=== PATIENT | male | born 1960 | race Two or more races ===

== ENCOUNTER 2018-05-14 19:26 | Inpatient (IN) | payer MEDICARE, OTHER ==
[~2018-05-14] VITALS: Ht 162.6 cm; Wt 181.4 kg
--- NOTE | 2018-05-14 19:45 | NUR ---
PT BIB PA C/O UPPER ABD PAIN WITH N/V TODAY, AND CHRONIC BUT WORSE THAN USUAL L LEEG PAIN. PT REPORTS DIABETIC NEUROPATHY. RESP EVEN UNLABORED. SKIN WARM DRY. LEGS ARE REDDENED AND ABESE BUT NO PITTING EDEMA. SATURATING LOW-MID 90'S ON ROOM AIR IN NO ACUTE DISTRESS. A/OX4. IN ER BED 10 ON MONITOR.
[2018-05-14] MEDS ORDERED: ONDANSETRON HCL/PF 4 MG/2 ML VIAL ONE (19:58)
[2018-05-14] MEDS ORDERED: ONDANSETRON HCL/PF 4 MG/2 ML VIAL IVP ONE (20:00)
[2018-05-14] MEDS ORDERED: IV NS 0.9% 1,000 ML BAG IV ONE (20:00)
[2018-05-14 20:26] LABS: BASOPHILS # (AUTO) 0.1 /CMM (0.0-0.2); EOSINOPHILS % (AUTO) 2.4 % (0.0-6.0); HEMATOCRIT 45 % (39-51); HEMOGLOBIN 14.2 g/dL (13.5-17.5); LYMPHOCYTES # (AUTO) 1.4 /CMM (0.8-4.8); MEAN CORPUSCULAR HGB CONC 32 g/dl (31.0-36.0); MEAN CORPUSCULAR VOLUME 99 fL (80-96); MONOCYTES # (AUTO) 0.5 /CMM (0.1-1.30); NEUTROPHILS # (AUTO) 5.5 /CMM (1.8-8.9); NEUTROPHILS % (AUTO) 71.6 % (43.0-81.0); PLATELET COUNT (AUTO) 118 /CMM (150-450); RED BLOOD CELL COUNT(AUTO) 4.56 MIL/uL (4.5-6.0); WHITE BLOOD COUNT (AUTO) 7.7 K/uL (4.3-11.0)
[2018-05-14 20:27] LABS: CALCIUM, SERUM 8.8 mg/dL (8.5-10.1); CARBON DIOXIDE 31 mmol/L (21-32); CHLORIDE 106 mmol/L (98-107); CREATININE 1.1 mg/dL (0.6-1.3); GLUCOSE 95 mg/dL (74-106); POTASSIUM 4.1 mmol/L (3.5-5.1); SODIUM SERUM 143 mmol/L (136-145); UREA NITROGEN, BLOOD 17 mg/dL (7-18)
[2018-05-14 20:33] LABS: ALANINE AMINOTRANSFERASE 22 U/L (12-78); ALBUMIN 2.8 g/dL (3.4-5.0); ALKALINE PHOSPHATASE 123 U/L (46-116); ASPARTATE AMINOTRANSFERASE 27 U/L (15-37); BILIRUBIN,DIRECT 0.1 mg/dL (0.0-0.2); BILIRUBIN,TOTAL 0.5 mg/dL (0.2-1.0); LIPASE 163 U/L (73-393); TOTAL PROTEIN, SERUM 7.4 g/dL (6.4-8.2)
--- NOTE | 2018-05-14 20:58 | NUR ---
REPORT GIVEN TO KODI FERRARI FOR ADMISSION
--- NOTE | 2018-05-14 21:07 | NUR ---
URINE SAMPLE SENT TO LAB
--- NOTE | 2018-05-14 21:10 | NUR ---
RESTING QUIETLY, ASLEEP BUT EASILY AROUSABLE.
[2018-05-14] MEDS ORDERED: Magnesium 1GM/D5W 100ML PREMIX 100 ML IV SCH (21:30)
[2018-05-14] MEDS ORDERED: Magnesium 1GM/D5W 100ML PREMIX 100 ML IV ONE (21:37)
[2018-05-14] MEDS ORDERED: MAGNESIUM HYDROXIDE 30 ML UDC PO PRN (22:00)
[2018-05-14] MEDS ORDERED: ACETAMINOPHEN 325 MG TABLET PO PRN (22:00)
[2018-05-14] MEDS ORDERED: ZOLPIDEM TARTRATE 5 MG TABLET PO PRN (22:00)
[2018-05-14] MEDS ORDERED: HYDROCODONE/APAP 5/325MG 1 EACH TABLET PO PRN (22:00)
[2018-05-14] MEDS ORDERED: ONDANSETRON HCL/PF 4 MG/2 ML VIAL IVP PRN (22:00)
[2018-05-14] MEDS ORDERED: Z GUARD REMEDY 2 OZ OINT TP PRN (22:00)
--- NOTE | 2018-05-14 22:35 | NUR ---
RN ADMITTING NOTES Pt ARRIVED TO THE FLOOR VIA ER CHANG. ON O2 VIA NC. Pt IS A/OX4, VERBAL, ABLE TO MAKE NEEDS KNOWN. IV ACCESS ON RAC #18G. ON TELE MONITOR. NO S/S OF ACUTE DISTRESS OR SEVERE SOB NOTED. ONLY SOB NOTED WITH MOVEMENT AND REPOSITIONING. Pt IS MORBIDLY OBESE. SAFETY MEASURES IN PLACE. BED LOW LOCKED, HOB ELEVATED, SIDE RAILS UP, CALL LIGHT AND BEDSIDE TABLE WITHIN REACH. WILL CONTINUE TO MONITOR Pt's CONDITION AND SAFETY THROUGHOUT THE NIGHT.
[2018-05-14 22:45] VITALS: BP 106/49
[2018-05-14] MEDS ORDERED: INSULIN REGULAR, HUMAN 100 UNIT/ML 3 ML VIAL SQ PRN (23:00)
[2018-05-14] MEDS ORDERED: DEXTROSE 50%-WATER 50 ML DISP.SYRIN IV PRN (23:00)
[2018-05-15] VITALS: BP 121/67
--- NOTE | 2018-05-15 | NUR ---
RN NOTES BG ACCUCHECK 80. NO INSULIN COVERAGE NEEDED AT THIS TIME.
[2018-05-15] MEDS: PANTOPRAZOLE 40 MG VIAL IV SCH ×2 (00:32→09:22)
[2018-05-15] MEDS: ENOXAPARIN SODIUM 40 MG/0.4 ML DISP.SYRIN SQ SCH ×2 (00:32→21:46)
[2018-05-15] MEDS: BLOOD SUGAR DIAGNOSTIC 1 EACH STRIP IN SCH ×5 (00:32→21:45)
[2018-05-15 04:00] VITALS: BP 125/80
[2018-05-15 04:22] LABS: APPEARANCE,URINE CLEAR (CLEAR); BILIRUBIN,URINE NEGATIVE (NEGATIVE); BLOOD, URINE NEGATIVE Ery/uL (NEGATIVE); COLOR,URINE YELLOW (YELLOW); KETONES,URINE NEGATIVE (NEGATIVE); LEUKOCYTE ESTERASE ,URINE NEGATIVE (NEGATIVE); NITRITE, URINE NEGATIVE (NEGATIVE); PROTEIN,URINE NEGATIVE (NEGATIVE); UGLUCOSE NEGATIVE (NEGATIVE)
[2018-05-15 04:35] LABS: BACTERIA,URINE None seen /HPF (None Seen); RBC,URINE NONE SEEN /HPF (0-2); SQUAMOUS EPITHELIAL CELL,UR Few /HPF (None Seen); WBC,URINE 0-2 /HPF (0-3)
[2018-05-15 04:43] LABS: BASOPHILS # (AUTO) 0.1 /CMM (0.0-0.2); EOSINOPHILS % (AUTO) 2.6 % (0.0-6.0); HEMATOCRIT 45 % (39-51); HEMOGLOBIN 14.3 g/dL (13.5-17.5); LYMPHOCYTES # (AUTO) 1.4 /CMM (0.8-4.8); LYMPHOCYTES % (AUTO) 19.1 % (20.0-44.0); MEAN CORPUSCULAR HGB CONC 32 g/dl (31.0-36.0); MEAN CORPUSCULAR VOLUME 99 fL (80-96); MONOCYTES # (AUTO) 0.6 /CMM (0.1-1.30); MONOCYTES % (AUTO) 7.7 % (2.0-12.0); NEUTROPHILS # (AUTO) 5.3 /CMM (1.8-8.9); NEUTROPHILS % (AUTO) 69.6 % (43.0-81.0); PLATELET COUNT (AUTO) 121 /CMM (150-450); RED BLOOD CELL COUNT(AUTO) 4.57 MIL/uL (4.5-6.0); WHITE BLOOD COUNT (AUTO) 7.6 K/uL (4.3-11.0)
[2018-05-15 04:56] LABS: CALCIUM, SERUM 8.4 mg/dL (8.5-10.1); MAGNESIUM 2.2 mg/dL (1.8-2.4); PHOSPHORUS 4.5 mg/dL (2.5-4.9); POTASSIUM 4.7 mmol/L (3.5-5.1)
--- NOTE | 2018-05-15 07:00 | NUR ---
RN NOTES ACCUCHECK 164. WILL ADMINISTER 3UN OF INSULIN PER SLIDING SCALE.
--- NOTE | 2018-05-15 07:03 | NUR ---
RN CLOSING NOTES NO SIGNIFICANT CHANGES IN Pt's CONDITION. Pt REMAINS STABLE PER BASELINE. NO S/S OF ACUTE DISTRESS OR SOB NOTED DURING THE NIGHT. Pt IS RESTING COMFORTABLY IN BED. RESPIRATIONS EVEN AND UNLABORED. TELE READING SR 80s. ALL NEEDS MET AND ATTENDED TO. SAFETY MEASURES IN PLACE. WILL ENDORSE TO DAYSHIFT RN FOR Pt's RHIANNA.
[2018-05-15] MEDS ORDERED: FOLI1TAB16 PO (07:38)
[2018-05-15] MEDS ORDERED: GLYB5TAB7 PO (07:38)
[2018-05-15] MEDS ORDERED: TAMS-12 PO (07:38)
[2018-05-15] MEDS ORDERED: SUMA100T16 PO (07:38)
[2018-05-15] MEDS ORDERED: PROP60CA6 PO (07:38)
[2018-05-15] MEDS ORDERED: FURO-144 PO (07:38)
[2018-05-15] MEDS ORDERED: DULA1.5P SQ (07:38)
[2018-05-15] MEDS ORDERED: POTA10TA15 PO (07:38)
[2018-05-15] MEDS ORDERED: NATE120T6 PO (07:38)
[2018-05-15] MEDS ORDERED: METF-440 PO (07:38)
[2018-05-15] MEDS ORDERED: MECL-102 PO (07:38)
[2018-05-15] MEDS ORDERED: HYDR-3976 PO (07:38)
[2018-05-15] MEDS ORDERED: GABA-534 PO (07:38)
[2018-05-15] MEDS ORDERED: TOPI100T38 PO (07:38)
[2018-05-15] MEDS ORDERED: PREG100C PO (07:38)
[2018-05-15] MEDS ORDERED: DOCU-141 PO (07:38)
[2018-05-15] MEDS ORDERED: CLON1TAB12 PO (07:38)
[2018-05-15] MEDS ORDERED: DULO30CA2 PO (07:38)
[2018-05-15] MEDS ORDERED: INSU100V7 SQ (07:38)
--- NOTE | 2018-05-15 07:58 | NUR ---
RN OPENING NOTES RECEIVED PATIENT IN BED, RESTING. A/O X 4. IV ACCESS ON RAC G#18. ON TELE MONITOR: ST 98-110 AT THIS TIME. NO S/S OF ACUTE DISTRESS OR SEVERE SHORTNESS OF BREATH AT THIS TIME. ON O2 VIA NC. SAFETY PRECAUTIONS IMPLEMENTED: BED LOW, BED LOCKED, HEAD OF BED ELEVATED, SIDE RAILS UP X2, CALL LIGHT WITHIN REACH. WILL CONTINUE TO MONITOR PATIENT THROUGHOUT THE SHIFT.
[2018-05-15 08:00] VITALS: BP 140/77
[2018-05-15] MEDS ORDERED: MECLIZINE HCL 25 MG TABLET PO PRN (09:30)
[2018-05-15] MEDS ORDERED: SUMATRIPTAN SUCCINATE 25 MG TABLET PO PRN (09:30)
[2018-05-15] MEDS: PROPRANOLOL LA 60 MG CAP.SA.24H PO SCH (10:19)
[2018-05-15] MEDS: clonazePAM 1 MG TABLET PO SCH (10:25)
[2018-05-15] MEDS: METFORMIN 500 MG TABLET PO SCH ×2 (10:25→17:03)
[2018-05-15] MEDS: TOPIRAMATE 100 MG TABLET PO SCH ×2 (10:26→17:03)
[2018-05-15] MEDS: FOLIC ACID 1 MG TABLET PO SCH (10:26)
[2018-05-15] MEDS: POTASSIUM CHLORIDE 10 MEQ TABLET.SA PO SCH ×2 (10:26→17:02)
[2018-05-15] MEDS: TAMSULOSIN 0.4 MG CAP.SR.24H PO SCH ×2 (10:26→21:45)
[2018-05-15] MEDS: PREGABALIN 100 MG CAPSULE PO SCH (10:26)
[2018-05-15] MEDS: GABAPENTIN 300 MG CAPSULE PO SCH ×3 (10:26→17:03)
[2018-05-15] MEDS: DOCUSATE SODIUM 100 MG CAPSULE PO SCH ×2 (10:27→17:02)
[2018-05-15] MEDS: glyBURIDE 5 MG TABLET PO SCH (10:27)
[2018-05-15] MEDS: FUROSEMIDE 40 MG TABLET PO SCH (10:27)
[2018-05-15] MEDS: DULOXETINE HCL 30 MG CAPSULE.DR PO SCH (10:27)
[2018-05-15 11:45] LABS: ABG BASE EXCESS 3.2 mmol/L; ABG OXYGEN SATURATION 81.8 % (92.0-98.5); ABG PCO2 61.9 mmHg (35.0-45.0); AaDO2 27.6 mmHg; COHb 1.8 % (0.5-1.5); MetHb 0.2 % (0.0-1.5); O2Hb 80.2 % (94.0-97.0); SITE, ABG Right Radial; VENT MODE, BG ROOM AIR
[2018-05-15] MEDS: NATEGLINIDE 60 MG TABLET PO SCH ×2 (12:36→17:03)
[2018-05-15 16:00] VITALS: BP 123/69
--- NOTE | 2018-05-15 18:43 | NUR ---
MS/RN NOTE THE PATIENT ALERT AND ORIENTED X4. RECEIVING OXYGEN 3L/MIN VIA NASAL CANNULA AND DENIES SOB. RESPIRATION REGULAR AND UNLABORED. DENIES PAIN. THE PATIENT IN NO APPARENT DISTRESS AT THIS TIME. RAC G 18 PATENT AND SALINE LOCKED. BED LOW AND LOCKED. SIDE RAILS UP X3. CALL LIGHT WITHIN REACH. WILL CONTINUE TO MONITOR.
--- NOTE | 2018-05-15 19:40 | NUR ---
RN OPENING NOTES RECEIVED REPORT FROM DAYSHIFT RN SAMIR/SHAY. FOUND Pt ASLEEP RESTING IN BED COMFORTABLY, EASILY AWAKENED BY NAME. NO S/S OF ACUTE DISTRESS OR SOB NOTED. RESPIRATIONS EVEN AND UNLABORED. Pt IS A/OX4, VERBAL, ABLE TO MAKE NEEDS KNOWN. ON 3L O2 VIA NC. IV ACCES ON RAC #18G, SL. SAFETY MEASURES IN PLACE. BED LOW, LOCKED, HOB ELEVATED, SIDE RAILS UP, CALL LIGHT AND BEDSIDE TABLE WITHIN REACH. BED ALARM ON. WILL CONTINUE TO MONITOR Pt's CONDITION AND SAFETY THROUGHOUT THE NIGHT.
[2018-05-15 20:00] VITALS: BP 103/70
[2018-05-15] MEDS ORDERED: INSULIN GLARGINE, 100 UNIT/ML CARTRIDGE SQ SCH (21:00)
--- NOTE | 2018-05-15 21:56 | NUR ---
RN NOTES HS ACCUCHECK BG 88. NO INSULIN COVERAGE NEEDED AT THIS TIME.
--- NOTE | 2018-05-16 02:22 | NUR ---
RN NOTES ENDORSED TO GERMAINE FERRARI FOR Pt's RHIANNA. Pt IS ASLEEP IN BED. NO S/S OF ACUTE DISTRESS OR SOB NOTED. RESPIRATIONS EVEN AND UNLABORED. ON 3L O2 VIA NC. SAFETY MEASURES IN PLACE.
--- NOTE | 2018-05-16 02:25 | NUR ---
RN NOTES SEEN PATIENT, MADE ROUNDS, ASLEEP BUT AROUSABLE, DENIES ANY PAIN OR DISCOMFORT AT THIS TIME, WILL CONTINUE TO MONITOR. ALL SAFETY MEASURES IN PLACED, BED IN LOW LOCKED POSITION, ASPIRATION PRECAUTION OBSERVED,
--- NOTE | 2018-05-16 05:43 | NUR ---
RT THERAPIST AND DAYSHIFT THERAPIST WAS NOT NOTIFIED OF CPAP ORDERS.
[2018-05-16 06:26] LABS: BASOPHILS # (AUTO) 0.1 /CMM (0.0-0.2); BASOPHILS % (AUTO) 1.2 % (0.0-2.0); EOSINOPHILS % (AUTO) 2.2 % (0.0-6.0); HEMATOCRIT 46 % (39-51); HEMOGLOBIN 14.6 g/dL (13.5-17.5); LYMPHOCYTES # (AUTO) 1.6 /CMM (0.8-4.8); LYMPHOCYTES % (AUTO) 18.8 % (20.0-44.0); MEAN CORPUSCULAR HGB CONC 32 g/dl (31.0-36.0); MEAN CORPUSCULAR VOLUME 97 fL (80-96); MONOCYTES # (AUTO) 0.8 /CMM (0.1-1.30); MONOCYTES % (AUTO) 9.3 % (2.0-12.0); NEUTROPHILS % (AUTO) 68.5 % (43.0-81.0); RED BLOOD CELL COUNT(AUTO) 4.68 MIL/uL (4.5-6.0); WHITE BLOOD COUNT (AUTO) 8.8 K/uL (4.3-11.0)
[2018-05-16 06:43] LABS: PLATELET COUNT (AUTO) 113 /CMM (150-450)
[2018-05-16 06:46] LABS: LYMPHOCYTES % (MANUAL) 20 % (16-48); MONOCYTES % (MANUAL) 8 % (0-11.0); NEUTROPHILS % (MANUAL) 72 (42-76)
[2018-05-16 06:56] LABS: CALCIUM, SERUM 8.4 mg/dL (8.5-10.1); CREATININE 0.9 mg/dL (0.6-1.3); POTASSIUM 4.4 mmol/L (3.5-5.1)
[2018-05-16] MEDS: BLOOD SUGAR DIAGNOSTIC 1 EACH STRIP IN SCH ×3 (07:07→17:17)
--- NOTE | 2018-05-16 07:30 | NUR ---
MS/RN NOTE THE PATIENT ALERT AND ORIENTED X4. RECEIVING OXYGEN AT 3L/MIN VIA NASAL CANNULA AND DENIES SOB. RESPIRATION REGULAR AND UNLABORED. DENIES PAIN. THE PATIENT IN NO APPARENT DISTRESS. RAC G 18 PATENT AND SALINE LOCKED. BED LOW AND LOCKED. SIDE RAILS UP X3. CALL LIGHT WITHIN REACH. WILL CONTINUE TO MONITOR.
[2018-05-16 08:00] VITALS: BP 119/73
[2018-05-16] MEDS: PANTOPRAZOLE 40 MG VIAL IV SCH (08:40)
[2018-05-16] MEDS: DOCUSATE SODIUM 100 MG CAPSULE PO SCH ×2 (08:40→17:17)
[2018-05-16] MEDS: glyBURIDE 5 MG TABLET PO SCH (08:40)
[2018-05-16] MEDS: clonazePAM 1 MG TABLET PO SCH (08:41)
[2018-05-16] MEDS: DULOXETINE HCL 30 MG CAPSULE.DR PO SCH (08:41)
[2018-05-16] MEDS: FUROSEMIDE 40 MG TABLET PO SCH (08:41)
[2018-05-16] MEDS: TOPIRAMATE 100 MG TABLET PO SCH ×2 (08:41→17:17)
[2018-05-16] MEDS: GABAPENTIN 300 MG CAPSULE PO SCH ×3 (08:41→17:17)
[2018-05-16] MEDS: FOLIC ACID 1 MG TABLET PO SCH (08:41)
[2018-05-16] MEDS: POTASSIUM CHLORIDE 10 MEQ TABLET.SA PO SCH ×2 (08:41→17:17)
[2018-05-16] MEDS: PREGABALIN 100 MG CAPSULE PO SCH (08:41)
[2018-05-16] MEDS: METFORMIN 500 MG TABLET PO SCH ×2 (08:41→17:17)
[2018-05-16 08:44] VITALS: BP 133/72
[2018-05-16] MEDS: NATEGLINIDE 60 MG TABLET PO SCH ×3 (08:44→17:19)
[2018-05-16] MEDS: PROPRANOLOL LA 60 MG CAP.SA.24H PO SCH (08:44)
--- NOTE | 2018-05-16 11:45 | NUR ---
MS/RN NOTE THE PATIENT REQUIRES CPAP AT NIGHT TIME TO PREVENT RESPIRATORY DISTRESS. PER DR OSBORNE THE PATIENT NEEDS OUTPATIENT SLEEP STUDY. Addendum: 05/16/18 at 1158 by JENNIFER BRAGA RN PATIENT STILL REQUIRES OXYGEN 3L/MIN DUE TO DESATURATION LESS THAN 88%.
--- NOTE | 2018-05-16 18:46 | NUR ---
MS/RN NOTE THE PATIENT ALERT AND ORIENTED X4. RECEIVING OXYGEN 3L/MIN VIA NASAL CANNULA AND SATURATION IS AT 97%. DENIES SOB. RESPIRATION REGULAR AND UNLABORED. DENIES PAIN. THE PATIENT IN NO APPARENT DISTRESS. PATIENT IS GIVEN DISCHARGE EDUCATION AND HE VERBALIZED UNDERSTANDING. PATIENT REFUSES PICTURE TO BE TAKEN DESPITE EXPLAINING RISKS AND BENEFITS. REPORT GIVEN TO LAURIE. WAITING FOR DROP WIRE STRINGER. UPCOMING SHIFT WILL BE ENDORSED.
--- NOTE | 2018-05-16 19:00 | NUR ---
RN MS OPENING NOTES RECEIVED PATIENT IN BED, AWAKE ALERT AND ORIENTED X 4, ABLE TO MAKE NEEDS, KNOWN RESPIRATIONS EVEN AND UNLABORED WITH EQUAL RISE AND FALL OF CHEST, DENIES ANY PAIN OR DISCOMFORT, ORIENTED TO STAFF AND CALL LIGHT AND KEPT WITHIN REACH, SAFETY PRECAUTIONS IN PLACE, LOW BED AND LOCKED, DISCUSSED PLAN OF CARE WITH PATIENT , AWAITING FOR DISCHARGE PATIENT AWARE. ALL NEEDS ATTENDED AT THIS TIME,WILL CONTINUE TO MONITOR AND ATTENDED TO NEEDS.
--- NOTE | 2018-05-16 19:50 | NUR ---
RN MS DISCHARGE NOTES PATIENT IS READY FOR DISCHARGE, BELONGINGS LIST DONE, AND SIGNED PATIENT ALSO HAS KEYS WITH HIM, IV SITE REMOVED NO ACTIVE BLEEDING, TOLERATED WELL, ID BAND REMOVED, PATIENT SIGNED DISCHARGE PAPERS AND INSTRUCTIONS PROVIDED VERBALIZE HE UNDERSTANDS. REPORT GIVEN TO EMT FROM [facility], DISCHARGE PAPER WORK GIVEN AND BELONGINGS GIVEN, ALL NEEDS WERE ATTENDED PATIENT LEFT IN STABLE CONDITION VS AT DISCHARGE 128/68,69,92% RA NO SOB,18,97.6.
== END 2018-05-16 19:50 | DRG 392 ==
LOC: ER 19:27 → TELE 21:05 → MED 05-15 10:31
PROVIDERS: ADMIT Nurse Practitioner Acute Care; ATTEND Family Medicine
DX: A08.4 Viral intestinal infection, unspecified (principal); D68.59 Other primary thrombophilia; Z68.44 Body mass index [BMI] 60.0-69.9, adult; E44.0 Moderate protein-calorie malnutrition; E66.2 Morbid (severe) obesity with alveolar hypoventilation; I50.32 Chronic diastolic (congestive) heart failure; E83.42 Hypomagnesemia; E11.40 Type 2 diabetes mellitus with diabetic neuropathy, unspecified; M19.90 Unspecified osteoarthritis, unspecified site; M06.9 Rheumatoid arthritis, unspecified; I11.0 Hypertensive heart disease with heart failure; Z79.4 Long term (current) use of insulin; N40.0 Benign prostatic hyperplasia without lower urinary tract symptoms; G43.909 Migraine, unspecified, not intractable, without status migrainosus; E11.65 Type 2 diabetes mellitus with hyperglycemia; D69.6 Thrombocytopenia, unspecified; Z99.81 Dependence on supplemental oxygen; R16.0 Hepatomegaly, not elsewhere classified
CPT/HCPCS: 36415; 36600; 76705-TC; 80048-TC; 80061-TC; 80076-TC; 81000-TC; 82803-TC; 82962-TC; 83690-TC; 83735-TC; 84100-TC; 84484-TC; 85025-TC; 87081-TC; 93307-TC; 93971-TC; 94799-TC; 97116-TC; 97530-TC; C9113; G0378; J1650; J1815; J2405; J3475; J7030

== ENCOUNTER 2018-06-30 19:03 | Inpatient (IN) | payer MEDICARE, OTHER ==
[~2018-06-30] VITALS: Ht 162.6 cm; Wt 177.4 kg
[~2018-06-30 19:03] MED LIST: CLON1TAB12 PO; DOCU-141 PO; DULA1.5P SQ; DULO30CA2 PO; FOLI1TAB16 PO; FURO-144 PO; GABA-534 PO; GLYB5TAB7 PO; HYDR-3976 PO; INSU100V7 SQ; MECL-102 PO; METF-440 PO; NATE120T6 PO; POTA10TA15 PO; PREG100C PO; PROP60CA6 PO; SUMA100T16 PO; TAMS-12 PO; TOPI100T38 PO
--- NOTE | 2018-06-30 19:16 | NUR ---
BIB BA 88 FROM [facility] S/P FALL FROM ELECTRIC WHEELCHAIR W/ COMPLAINT OF BILATERAL KNEE JUAN 12/14. BS WAS REPORTED @ 31, BS RECHECK WITH RESULT OF 145. HE SLEEPING BUT EASILY AROUSABLE TO VERBAL STIMULI. NO RESP DISTRESS BREATHING EVEN AND UNLABORED. CAME IN WITH 02 @ 3LPM VIA NC WITH O2 SAT OF 95%. CAME IN WITH IV LINE ON L AC 18G. PT HOOKED ON MONITOR. AWAITING MD BLANCO.
--- NOTE | 2018-06-30 19:20 | NUR ---
AT BEDSIDE FOR EVAL.
--- NOTE | 2018-06-30 19:50 | NUR ---
PT GIVEN CHICO SHIRLEY FOR DINNER AND WILL RECHECK BS IN A HOUT PER MD ORDER.
[2018-06-30] MEDS ORDERED: DEXTROSE 50%-WATER 50 ML DISP.SYRIN IV ONE (20:30)
[2018-06-30] MEDS ORDERED: DEXTROSE 50%-WATER 50 ML DISP.SYRIN ONE (20:30)
--- NOTE | 2018-06-30 20:35 | NUR ---
BS 36. MD NOTIFIED RECEIVED ORDER FOR D50 1 AMP. PT IS AAOX4. VERBALLY RESPONSIVE. NAD NOTED.
--- NOTE | 2018-06-30 20:36 | NUR ---
D50 GIVEN IVP PER ORDER D/T BS OF 36
--- NOTE | 2018-06-30 20:43 | NUR ---
TECH AT BEDSIDE FOR EKG
[2018-06-30 21:00] LABS: BASOPHILS # (AUTO) 0.1 /CMM (0.0-0.2); BASOPHILS % (AUTO) 0.8 % (0.0-2.0); EOSINOPHILS % (AUTO) 1.2 % (0.0-6.0); HEMATOCRIT 43 % (39-51); HEMOGLOBIN 13.5 g/dL (13.5-17.5); LYMPHOCYTES # (AUTO) 0.5 /CMM (0.8-4.8); LYMPHOCYTES % (AUTO) 6.3 % (20.0-44.0); MEAN CORPUSCULAR HGB CONC 31 g/dl (31.0-36.0); MEAN CORPUSCULAR VOLUME 94 fL (80-96); MONOCYTES # (AUTO) 0.4 /CMM (0.1-1.30); MONOCYTES % (AUTO) 5.2 % (2.0-12.0); NEUTROPHILS # (AUTO) 7.2 /CMM (1.8-8.9); NEUTROPHILS % (AUTO) 86.5 % (43.0-81.0); PLATELET COUNT (AUTO) 119 /CMM (150-450); RED BLOOD CELL COUNT(AUTO) 4.61 MIL/uL (4.5-6.0); WHITE BLOOD COUNT (AUTO) 8.3 K/uL (4.3-11.0)
[2018-06-30 21:11] LABS: CALCIUM, SERUM 8.4 mg/dL (8.5-10.1)
--- NOTE | 2018-06-30 21:33 | NUR ---
BS 331. MADE AWARE NNO RECEIVED
--- NOTE | 2018-06-30 21:42 | NUR ---
SON LEFT CONTACT INFORMATION LB STORM
--- NOTE | 2018-06-30 22:20 | NUR ---
REPORT GIVEN TO VEGA DAY PT GOING TO 321-2
[2018-06-30] MEDS ORDERED: DEXTROSE 50%-WATER 50 ML DISP.SYRIN IV PRN (23:30)
[2018-06-30 23:38] VITALS: BP 119/58
--- NOTE | 2018-06-30 23:38 | NUR ---
FEATHER DRYING MACHINE OPERATOR NOTES PATIENT ARRIVED ON THE UNIT AT 2308 VIA GURNEY. PATIENT IS A/O X 4. PATIENT IS MORBIDLY OBESE. NO SIGNS OF RESPIRATORY DISTRESS. PATIENT DENIES SHORTNESS OF BREATH. PATIENT DENIES PAIN AT THIS TIME. IV SITE INTACT. SAFETY PRECAUTIONS IMPLEMENTED. CALL LIGHT WITHIN REACH. WILL CONTINUE TO MONITOR PATIENT THROUGHOUT THE SHIFT.
--- NOTE | 2018-06-30 23:39 | NUR ---
RN NOTES PATIENT UNABLE TO TURN FULLY SIDE TO SIDE TO ADEQUATELY ASSESS SKIN ISSUES AROUND BACK, SACRUM AREA.
[2018-07-01] VITALS (7 sets, daily range): BP systolic 119–140; BP diastolic 58–84
[2018-07-01] MEDS ORDERED: ONDANSETRON HCL/PF 4 MG/2 ML VIAL IVP PRN (02:00)
[2018-07-01] MEDS: IV D5 LR 1,000 ML IV PRN ×2 (02:34→17:23)
[2018-07-01] MEDS: ACETAMINOPHEN 325 MG TABLET PO PRN ×2 (04:56→12:24)
--- NOTE | 2018-07-01 06:48 | NUR ---
RN CLOSING NOTES PATIENT IS AWAKE, RESTING COMFORTABLY IN BED. PATIENT HAS NO SIGNS OF RESPIRATORY DISTRESS. DENIES SHORTNESS OF BREATH. PATIENT DENIES PAIN AT THIS TIME. IV SITE INTACT AND PATENT. LATEST BLOOD SUGAR IS 91. SAFETY PRECAUTIONS IMPLEMENTED. CALL LIGHT WITHIN REACH. WILL ENDORSE TO ONCOMING AM RN.
--- NOTE | 2018-07-01 08:00 | NUR ---
RN MS NOTES Patient received on 2L o2 nasal cannula, no sob noted. Patient is lying down comfortably in bed, denies pain at this time. Last blood sugar check was 75. Patient ate 25% of his breakfast and drank orange juice. Will continue to monitor patient.
[2018-07-01] MEDS: BLOOD SUGAR DIAGNOSTIC 1 EACH STRIP IN SCH ×4 (08:04→21:55)
[2018-07-01] MEDS: FOLIC ACID 1 MG TABLET PO SCH (09:06)
[2018-07-01] MEDS: PROPRANOLOL LA 60 MG CAP.SA.24H PO SCH (09:06)
[2018-07-01] MEDS: FUROSEMIDE 40 MG TABLET PO SCH (09:06)
[2018-07-01] MEDS: POTASSIUM CHLORIDE 10 MEQ TABLET.SA PO SCH ×2 (09:07→16:03)
[2018-07-01] MEDS: TOPIRAMATE 100 MG TABLET PO SCH ×2 (09:07→16:03)
[2018-07-01] MEDS: GABAPENTIN 300 MG CAPSULE PO SCH ×3 (09:07→16:03)
[2018-07-01] MEDS: METFORMIN 500 MG TABLET PO SCH ×2 (09:07→16:03)
[2018-07-01] MEDS: DULOXETINE HCL 30 MG CAPSULE.DR PO SCH (09:07)
[2018-07-01] MEDS: PREGABALIN 100 MG CAPSULE PO SCH (09:07)
[2018-07-01] MEDS: clonazePAM 1 MG TABLET PO SCH (09:08)
[2018-07-01] MEDS: DOCUSATE SODIUM 100 MG CAPSULE PO SCH ×2 (09:19→16:03)
[2018-07-01] MEDS ORDERED: IPRATROPIUM/ALBUTEROL INHALER IH PRN (10:00)
[2018-07-01] MEDS ORDERED: ALBUTEROL FS 2.5 MG/0.5 ML VIAL.NEB NEB PRN (10:30)
[2018-07-01] MEDS ORDERED: IPRATROPIUM NEB FS 0.5 MG/2.5 ML AMPUL.NEB NEB PRN (10:30)
--- NOTE | 2018-07-01 11:55 | NUR ---
RN MS NOTES Bariatric bed followed up by charge nurse to central supply.
--- NOTE | 2018-07-01 16:30 | NUR ---
RN MS NOTES Bariatric bed followed up with central supply, left a voice message regarding the bed availability.
--- NOTE | 2018-07-01 18:30 | NUR ---
RN MS CLOSING NOTES Patient remains on 2 L o2 nasal cannula at this time, no sob noted. Patient is now MRSA positive and all the proper precautions are taken. Patient denies pain at this time and was cleaned. Patient remains with the Left AC #18 with d5 LR 65 ml/hour, free flowing with no obstruction noted. Patient's blood sugar remained within normal range all shift, ranging from 75, 87 and 87. Patient able to eat when he wants the food. Patient's bariatric bed was followed up with central supply, but no luck at this time. Patient's bed is at the lowest setting, call light within reach.
--- NOTE | 2018-07-01 19:20 | NUR ---
RN MS NOTES Tried to get a urine sample patient, but was unable to. Did a bladder scan, showed <100. Reported to lithographic press operator apprentice RN for RHIANNA, he will try again to obtain a urine sample.
--- NOTE | 2018-07-01 19:37 | NUR ---
RN OPENING NOTES RECEIVED PATIENT AWAKE RESTING COMFORTABLY IN BED. A/O X 4. NO SIGNS OF RESPIRATORY DISTRESS. NO SIGNS OF SHORTNESS OF BREATH. DENIES PAIN AT THIS TIME. IV SITE INTACT AND PATENT. SAFETY PRECAUTIONS IMPLEMENTED. CALL LIGHT WITHIN REACH. WILL CONTINUE TO MONITOR PATIENT THROUGHOUT THE SHIFT.
--- NOTE | 2018-07-01 20:00 | NUR ---
RN NOTES PATIENT REFUSED DINNER. OFFERED SNACKS AND JUICE. PATIENT DRANK JUICE AND REFUSED SNACKS. PATIENT TOLERATED JUICE WELL.
[2018-07-01] MEDS: MUPIROCIN OINT 2% 22 GM TUBE SCH (21:08)
[2018-07-01] MEDS: TAMSULOSIN 0.4 MG CAP.SR.24H PO SCH (21:13)
--- NOTE | 2018-07-01 21:56 | NUR ---
RN NOTES BLOOD SUGAR 135 AT THIS TIME. INSULIN COVERAGE NOT GIVEN BECAUSE PATIENT DID NOT EAT DINNER.
--- NOTE | 2018-07-02 00:18 | NUR ---
RN NOTES PATIENT ACCIDENTALLY HAD LEFT AC IV PULLED OUT DURING TRANSFER TO BARIATRIC BED EARLIER DURING THE SHIFT. REPLACED WITH LEFT HAND IV. PATENT AND RUNNING WELL. CONTINUATION OF FLUIDS IMPLEMENTED.
--- NOTE | 2018-07-02 06:45 | NUR ---
RN CLOSING NOTES PATIENT IS RESTING COMFORTABLY IN BED. PATIENT WAS AROUSABLE WHEN NEEDED TO BE WOKEN UP. NO ACUTE DISTRESS NOTED, NOR SHORTNESS OF BREATH. NO FACIAL GRIMACING TO INDICATE PAIN. NEW IV SITE INTACT AND PATENT RUNNING D5LR AT 65 ML/HR. LATEST BLOOD SUGAR 103. PATIENT HAD ADEQUATE SLEEP FOR MOST OF THE NIGHT. NEEDS WERE MET. SAFETY PRECAUTIONS IMPLEMENTED. CALL LIGHT WITHIN REACH. WILL ENDORSE TO AM RN.
[2018-07-02] MEDS: BLOOD SUGAR DIAGNOSTIC 1 EACH STRIP IN SCH ×4 (07:19→21:08)
--- NOTE | 2018-07-02 07:19 | NUR ---
RN MS NOTES TRIED TO GET A URINE SAMPLE. PATIENT IS INCONTINENT AND DOES NOT TELL US WHEN HE HAS TO URINATE. REPORTED TO AM NURSE TO ATTEMPT URINE SAMPLE COLLECTION.
[2018-07-02 07:22] LABS: BASOPHILS % (AUTO) 0.6 % (0.0-2.0); EOSINOPHILS % (AUTO) 2.3 % (0.0-6.0); HEMATOCRIT 42 % (39-51); HEMOGLOBIN 12.9 g/dL (13.5-17.5); LYMPHOCYTES # (AUTO) 0.7 /CMM (0.8-4.8); LYMPHOCYTES % (AUTO) 11.3 % (20.0-44.0); MEAN CORPUSCULAR HGB CONC 31 g/dl (31.0-36.0); MEAN CORPUSCULAR VOLUME 95 fL (80-96); MONOCYTES # (AUTO) 0.7 /CMM (0.1-1.30); MONOCYTES % (AUTO) 11.6 % (2.0-12.0); NEUTROPHILS # (AUTO) 4.8 /CMM (1.8-8.9); NEUTROPHILS % (AUTO) 74.2 % (43.0-81.0); PLATELET COUNT (AUTO) 123 /CMM (150-450); RED BLOOD CELL COUNT(AUTO) 4.36 MIL/uL (4.5-6.0); WHITE BLOOD COUNT (AUTO) 6.5 K/uL (4.3-11.0)
[2018-07-02 07:28] LABS: CALCIUM, SERUM 8.3 mg/dL (8.5-10.1); CREATININE 0.9 mg/dL (0.6-1.3); MAGNESIUM 2.1 mg/dL (1.8-2.4); PHOSPHORUS 3.8 mg/dL (2.5-4.9); POTASSIUM 4.7 mmol/L (3.5-5.1)
[2018-07-02 08:00] VITALS: BP 109/59
--- NOTE | 2018-07-02 08:00 | NUR ---
MS/RN AM SHIFT INITIAL NOTES RECEIVED PT ASLEEP IN BED, EASILY AROUSEABLE, PT A/O X 4, DENIES ANY SYMPTOMS. ON 2L HUMIDIFIED O2 VIA N/C SATURATING @ 89%, NO S/S OF RESPIRATORY DISTRESS, LUNG SOUNDS DIMINISHED. BS CHECK THIS MORNING 112, NO S/S OF HYPO OR HYPERGLYCEMIA. WITH ON GOING IV INFUSION OF D5LR @ 65CC/HR, IV SITE PATENT WITH NO S/S OF INFECTION. PT IS COMFORTABLE AT THIS TIME, SCHEDULED AM MEDS TO BE GIVEN. CL WITHIN REACHED, SAFETY MAINTAINED AND ISOLATION OBSERVED. ON GOING MONITORING.
[2018-07-02] MEDS: FOLIC ACID 1 MG TABLET PO SCH (08:20)
[2018-07-02] MEDS: DULOXETINE HCL 30 MG CAPSULE.DR PO SCH (08:20)
[2018-07-02] MEDS: GABAPENTIN 300 MG CAPSULE PO SCH ×3 (08:20→16:10)
[2018-07-02] MEDS: POTASSIUM CHLORIDE 10 MEQ TABLET.SA PO SCH ×2 (08:20→16:10)
[2018-07-02] MEDS: clonazePAM 1 MG TABLET PO SCH (08:20)
[2018-07-02] MEDS: TOPIRAMATE 100 MG TABLET PO SCH ×2 (08:20→16:10)
[2018-07-02] MEDS: FUROSEMIDE 40 MG TABLET PO SCH (08:20)
[2018-07-02] MEDS: PREGABALIN 100 MG CAPSULE PO SCH (08:20)
[2018-07-02] MEDS: METFORMIN 500 MG TABLET PO SCH ×2 (08:20→16:10)
[2018-07-02] MEDS: DOCUSATE SODIUM 100 MG CAPSULE PO SCH ×2 (08:20→16:09)
[2018-07-02] MEDS: MUPIROCIN OINT 2% 22 GM TUBE SCH ×2 (08:21→21:09)
[2018-07-02] MEDS: PROPRANOLOL LA 60 MG CAP.SA.24H PO SCH (08:44)
--- NOTE | 2018-07-02 08:45 | NUR ---
MS/RN ROUNDS - DR. ZAIDI UPDATED PT'S CONDITION. PT SEEN & EXAMINED BY DR. ZAIDI. NO NEW ORDERS RECEIVED AT THIS TIME. MONITORING CONTINUED.
[2018-07-02 10:55] LABS: APPEARANCE,URINE SL CLOUDY (CLEAR); BILIRUBIN,URINE NEGATIVE (NEGATIVE); BLOOD, URINE 3+ Ery/uL (NEGATIVE); COLOR,URINE YELLOW (YELLOW); KETONES,URINE NEGATIVE (NEGATIVE); LEUKOCYTE ESTERASE ,URINE NEGATIVE (NEGATIVE); NITRITE, URINE NEGATIVE (NEGATIVE); PH,URINE 5.5 (5.0-8.0); PROTEIN,URINE NEGATIVE (NEGATIVE); UGLUCOSE NEGATIVE (NEGATIVE); UROBILINOGEN,URINE 0.2 EU/dL (0.2)
[2018-07-02 11:39] LABS: BACTERIA,URINE Rare /HPF (None Seen); RBC,URINE TOO NUMEROUS TO COUN /HPF (0-2); SQUAMOUS EPITHELIAL CELL,UR Rare /HPF (None Seen); WBC,URINE 0-2 /HPF (0-3)
--- NOTE | 2018-07-02 12:00 | NUR ---
MS/RN NOON ROUNDS NO ACUTE CHANGE OF CONDITION. MONITORING CONTINUED.
[2018-07-02] MEDS: IV D5 LR 1,000 ML IV PRN (13:13)
[2018-07-02 16:00] VITALS: BP 109/65
[2018-07-02] MEDS: ACETAMINOPHEN 325 MG TABLET PO PRN (16:27)
--- NOTE | 2018-07-02 19:15 | NUR ---
MS RN NOTES RECEIVED PT IN BED RESTING, AWOKEN VERBALLY OR BY TOUCH. PT A/O X1 AND ABLE TO GIVE SIMPLE RESPONSES. ON ON 2L NC SAT @91%. PT WITH FC DRAINING WELL. PT WITH LHAND 20G IV RUNNING D5LR @65ML/HR. SAFETY MEASURES IN PLACE WITH BED IN LOW LOCKED POSITION WITH SIDE RAILS UP X3. CALL LIGHT WITHIN REACH. WILL CONTINUE TO MONITOR.
--- NOTE | 2018-07-02 19:30 | NUR ---
MS/RN AM SHIFT END NOTES NO ACUTE CHANGE OF CONDITION NOTED DURING THE SHIFT. ALL NEEDS MET. PT ENDORSED TO PM NURSE TO CONTINUE CARE. CL WITHIN REACHED, SAFETY MAINTAINED AND ISOLATION OBSERVED.
[2018-07-02 20:47] VITALS: BP 126/64
[2018-07-02] MEDS: TAMSULOSIN 0.4 MG CAP.SR.24H PO SCH (21:09)
--- NOTE | 2018-07-02 22:20 | NUR ---
MS RN NOTES RT CALLED FOR BREATHING TREATMENT, BREATHING SLIGHTLY LABORED. PT O2 SAT 87%. AFTER TREATMENT O2 SAT 96%. CHARGE NURSE MADE AWARE. ATTACHED PT TO PULSE/OX MONITOR TO FOR CONTINUED MONITORING AND ADJUSTED PT'S POSITION.
[2018-07-03] VITALS (55 sets, daily range): BP systolic 55–140; BP diastolic 31–71
[2018-07-03 00:50] LABS: ABG BASE EXCESS 3.9 mmol/L; ABG OXYGEN SATURATION 97.7 % (92.0-98.5); ABG PH 7.228 (7.350-7.450); ABG PO2 125.2 mmHg (75.0-100.0); AaDO2 503.8 mmHg; COHb 2.5 % (0.5-1.5); MetHb 0.4 % (0.0-1.5); O2Hb 94.9 % (94.0-97.0); SITE, ABG Left Radial
--- NOTE | 2018-07-03 01:00 | NUR ---
Received patient from [address] [place] [address] 320 Bed1 via bed S/P BOILER WASHER.Patient responsive answering yes or no.ABG's pH 7.228,pCO2 84,pO2 125.2 HCO3 34.2 on 100% NRB mask.Placed on BIPAP by RT with settings 18/8,Rate 24,FIO2 50%ordered by Ignacio CUNNINGHAM.No acute distress noted.SR with BBB.Continue monitoring.
--- NOTE | 2018-07-03 01:25 | NUR ---
PATIENT CALLED FOR RAPID RESPONSE DUE TO RESPIRATORY DISTRESS WHILE ON 3LNC AND PLACED ON 100% NRB MASK. ABG ORDERED AND PERFORMED, RELAYED RESULTS TO RN. PATIENT TRANSFERRED TO ICU RM 255 AND ORDERED BIPAP WITH SETTINGS 18/8, 50%, RR 24. CONTINUE TO MONITOR PATIENT. Addendum: 07/03/18 at 0128 by LEE ANN KAMINSKI RT Amended: Links added.
--- NOTE | 2018-07-03 01:30 | NUR ---
MS RN NOTES 0014 - PT ASSESSED DIFFICULT TO AROUSE CHARGE NURSE INFORMED 0015 - PT ASSESSED BY CHARGE NURSE 0023 - VITALS TAKEN - BP-119/71 HR- 102 TEMP -100.3 O2 - 84 4L RR - 20 0025 - RAPID CALLED 0028 - RRTEAM ARRIVED - BS - 160, O2 - 87% 0030 - MASK WITH 10L - 87%, KENNEDY MESSINA DNP NOTIFIED 003 - PT ON NON REBREATHER MAX O2 - HR - 96 O2 - 95% 003 - KENNEDY MESSINA DNP CALLED BACK ABG AND CXR ORDER GIVEN, ABG DONE 38 - CXR DONE 44 - ABG RESULTS, INFORMED SIDDHARTH CUNNINGHAM 48 - SIDDHARTH CUNNINGHAM, ORDER FOR TRANSFER TO ICU AND PUT ON BIPAP 54 - TRANSFER FROM [facility] TO ICU 99 - PT ARRIVED ON ICU UNIT, REPORT GIVEN TO ICU NURSE
--- NOTE | 2018-07-03 01:35 | NUR ---
Report given to Jose Carlos Duran RN for continuity of care.
[2018-07-03] MEDS: IV D5 LR 1,000 ML IV PRN (02:30)
[2018-07-03 03:48] LABS: ABG BASE EXCESS 4.6 mmol/L; ABG OXYGEN SATURATION 95.6 % (92.0-98.5); ABG PCO2 70.6 mmHg (35.0-45.0); ABG PH 7.291 (7.350-7.450); ABG PO2 83.6 mmHg (75.0-100.0); AaDO2 193.5 mmHg; COHb 2.3 % (0.5-1.5); MetHb 0.4 % (0.0-1.5); PEEP,BG 8 cm H2O; SITE, ABG Left Radial; VENT MODE, BG BiPAP
--- NOTE | 2018-07-03 03:54 | NUR ---
NOTIFIED DR. MESSINA ON ABG RESULTS S/P BIBPAP PLACEMENT AND RECEIVED ORDERS TO INCREASE RATE TO 26 AND RECHECK ABG IN 30 MIN. READBACK ORDERS PERFORMED AND CARRIED OUT.
[2018-07-03 04:32] LABS: BASOPHILS # (AUTO) 0.1 /CMM (0.0-0.2); BASOPHILS % (AUTO) 0.9 % (0.0-2.0); EOSINOPHILS % (AUTO) 1.1 % (0.0-6.0); HEMATOCRIT 40 % (39-51); HEMOGLOBIN 12.4 g/dL (13.5-17.5); LYMPHOCYTES # (AUTO) 0.6 /CMM (0.8-4.8); LYMPHOCYTES % (AUTO) 8.2 % (20.0-44.0); MEAN CORPUSCULAR HGB CONC 31 g/dl (31.0-36.0); MEAN CORPUSCULAR VOLUME 96 fL (80-96); MONOCYTES # (AUTO) 0.8 /CMM (0.1-1.30); NEUTROPHILS # (AUTO) 5.5 /CMM (1.8-8.9); NEUTROPHILS % (AUTO) 77.8 % (43.0-81.0); PLATELET COUNT (AUTO) 110 /CMM (150-450); RED BLOOD CELL COUNT(AUTO) 4.16 MIL/uL (4.5-6.0); WHITE BLOOD COUNT (AUTO) 7.1 K/uL (4.3-11.0)
[2018-07-03 04:44] LABS: CALCIUM, SERUM 8.3 mg/dL (8.5-10.1); POTASSIUM 4.5 mmol/L (3.5-5.1)
[2018-07-03 04:53] LABS: ABG BASE EXCESS 6.1 mmol/L; ABG OXYGEN SATURATION 95.2 % (92.0-98.5); ABG PCO2 85.2 mmHg (35.0-45.0); ABG PH 7.248 (7.350-7.450); ABG PO2 85.7 mmHg (75.0-100.0); COHb 2.2 % (0.5-1.5); MetHb 0.4 % (0.0-1.5); O2Hb 92.7 % (94.0-97.0); PEEP,BG 8 cm H2O; SITE, ABG Left Radial; VENT MODE, BG BIPAP
--- NOTE | 2018-07-03 05:00 | NUR ---
NOTIFIED DR. MESSINA OF ABG RESULTS AFTER BIPAP CHANGE OF RATE 26. RECEIVED ORDERS TO CHANGE BIPAP SETTINGS 22/5 AND KEEP RATE @ 26. RECHECK ABG 1 HOUR AFTER CHANGE. READBACK ORDERS PERFORMED AND CARRIED OUT.
--- NOTE | 2018-07-03 06:48 | NUR ---
PT REMAINS IN NO ACUTE DISTRESS IN BED. PT DID NOT HAVE ANY SIGNIFICANT CHANGE IN CONDITION DURING SHIFT. ALL NEEDS MET, ALL ORDERS CARRIED OUT. WILL ENDORSE CARE TO AM RN FOR CONTINUITY OF CARE.
--- NOTE | 2018-07-03 07:00 | NUR ---
RN NOTES RECEIVED PT ON BED, LETHARGIC , RESPONDS TO HIS NAME, ON BIPAP , O2 SAT 95%, ON TELE SR WITH BBB , STACK DRAINING TO GRAVITY, R WRIST AND L HAND IV SITES G 20 CLEAN, DRY AND INTACT, NPO AT THIS TIME ,SR UP x3, CALL LIGHT WITHIN EASY REACH, BED LOCKED AND IN LOWEST POSITION , CONTINUE TO FOLLOW UP WITH ABG AND NOTIFED MD FOR SHAHEEN SIGNIFICANT CHANGES.
--- NOTE | 2018-07-03 07:51 | NUR ---
WOUND CARE CONSULT: PT REFUSED TO TURN FOR FULL SKIN ASSESSMENT. LARGE BRUISE NOTED TO LEFT BUTTOCK IN ADMISSION PHOTO. PT PRESENTS WITH BILATERAL KNEE ABRASIONS, LEFT POSTERIOR ANKLE/PROXIMAL HEEL SKIN TEAR, RT SIDE OF BODY DRY LESIONS, LEFT SIDE/BACK OPEN AND CLOSED BLISTERS WITH EDEMA AND RASH TO GROIN/ABDOMINAL FOLDS WITH REDNESS TO PANNUS, PRESENT ON ADMISSION. RECOMMENDATIONS MADE FOR SKIN PROTECTION AND WOUND CARE. DISCUSSED WITH NURSING STAFF. PT ON BARIHAIKU ETS AIR BED. MEPILEX PROTECTION IN PLACE FOR NASAL BRIDGE AND CHEEKS UNDER BIPAP MASK. WILL SEE PRN. IN AGREEMENT WITH PLAN OF CARE. CURRENT ARLEEN SCORE IS 12. Addendum: 07/03/18 at 0754 by NIKITA BOSWELL WNDNU Amended: Links added.
[2018-07-03] MEDS ORDERED: Z GUARD REMEDY 2 OZ OINT TP PRN (08:00)
[2018-07-03] MEDS: BLOOD SUGAR DIAGNOSTIC 1 EACH STRIP IN SCH ×4 (08:26→21:15)
--- NOTE | 2018-07-03 08:30 | NUR ---
RN NOTES DR OSBORNE AT THE BEDSIDE , NOTIFIED REGARDING ABG RESULTS , NEW ORDER RECEIVED , CONTINUE TO MONITOR
[2018-07-03] MEDS: DOCUSATE SODIUM 100 MG CAPSULE PO SCH ×2 (08:51→16:45)
[2018-07-03] MEDS: FOLIC ACID 1 MG TABLET PO SCH (08:51)
[2018-07-03] MEDS: DULOXETINE HCL 30 MG CAPSULE.DR PO SCH (08:51)
[2018-07-03] MEDS: MUPIROCIN OINT 2% 22 GM TUBE SCH ×2 (08:51→21:00)
[2018-07-03] MEDS: METFORMIN 500 MG TABLET PO SCH ×2 (08:52→16:45)
[2018-07-03] MEDS: PROPRANOLOL LA 60 MG CAP.SA.24H PO SCH (08:52)
[2018-07-03] MEDS: clonazePAM 1 MG TABLET PO SCH (08:55)
[2018-07-03] MEDS: POTASSIUM CHLORIDE 10 MEQ TABLET.SA PO SCH ×2 (08:55→16:45)
[2018-07-03] MEDS: GABAPENTIN 300 MG CAPSULE PO SCH ×3 (08:56→16:45)
[2018-07-03] MEDS: FUROSEMIDE 40 MG TABLET PO SCH (08:56)
[2018-07-03] MEDS: PREGABALIN 100 MG CAPSULE PO SCH (08:56)
[2018-07-03] MEDS: Z GUARD REMEDY 2 OZ OINT TP SCH (08:57)
[2018-07-03] MEDS: TOPIRAMATE 100 MG TABLET PO SCH ×2 (08:57→16:45)
--- NOTE | 2018-07-03 09:45 | NUR ---
RN NOTES PT CONSTANTLY PULLING ON HIS BIPAP, DR ZAIDI NOTIFED, CUCO SOFT PROTECTIVE DEVICE PLACED ON PT HANDS OF HIS SAFETY , CONTINUE TO MONITOR.
[2018-07-03] MEDS ORDERED: ENOXAPARIN SODIUM 40 MG/0.4 ML DISP.SYRIN SQ SCH (10:30)
[2018-07-03] MEDS ORDERED: clonazePAM 1 MG TABLET PO PRN (10:30)
[2018-07-03 10:31] LABS: ABG BASE EXCESS 8.7 mmol/L; ABG OXYGEN SATURATION 92.9 % (92.0-98.5); ABG PCO2 78.2 mmHg (35.0-45.0); ABG PH 7.305 (7.350-7.450); ABG PO2 68.3 mmHg (75.0-100.0); AaDO2 200.2 mmHg; MetHb 0.5 % (0.0-1.5); O2Hb 90.6 % (94.0-97.0); PEEP,BG 5 cm H2O; SITE, ABG Left Radial
[2018-07-03] MEDS ORDERED: FEE PK DOSING 1 MIN EA MC ONE (10:37)
[2018-07-03] MEDS: CEFEPIME 1 GM in IV D5W 50 ML IV SCH (10:41)
[2018-07-03] MEDS: FUROSEMIDE 40 MG/4 ML VIAL IV SCH (10:42)
--- NOTE | 2018-07-03 11:02 | NUR ---
RN NOTES PT IS ON BIPAP AND LETHARGIC, UNABLE TO OBTAINED SPUTUM SAMPLE AT THIS TIME.
[2018-07-03] MEDS: ALBUTEROL FS 2.5 MG/0.5 ML VIAL.NEB NEB SCH ×4 (12:30→23:13)
[2018-07-03] MEDS: IPRATROPIUM NEB FS 0.5 MG/2.5 ML AMPUL.NEB NEB SCH ×4 (12:30→23:13)
--- NOTE | 2018-07-03 12:57 | NUR ---
RN NOTES LOTRIMIN CREAM AND VANCO IV IS NOT AVAILABLE FORM PHARMACY YET , PHARMACY NOTIFED.
[2018-07-03] MEDS: CLOTRIMAZOLE 1% 15 GM TUBE TP SCH ×2 (13:07→16:46)
[2018-07-03] MEDS: VANCOMYCIN 1.25 GM in IV D5W 500 ML IV SCH (13:07)
--- NOTE | 2018-07-03 17:52 | NUR ---
RT END OF THE SHIFT REPORT, PT. 57 Y OLD MALE, ON BIPAP SOME WHAT AWAKE AND RESPONSIVE IN THE MORNING AND T/O DAY, AFTER 4 PM HE WAS MORE AWAKE AND RESPONSIVE, ON BIPAP WITH FACE MASK AND NOTED SETTINGS, ALARMS ARE SET AND FUNCTIONAL. @0830AM BIPAP CHANGES PER DR. OSBORNE AT THE BEDSIDE,. AND ABG @ 1030AM DONE NO CHANGES AFTER THAT T/O DAY PT. STABLE. DUE TO LARGE NECK AND LONG HAIR BIPAP MASK WAS ADJUSTED MORE THAN 10 TIMES AND CHECK ON NOSE SKIN BREAK DOWN SOME REDDNESS NOTED DUR TO PRESSURE, AND RN AWARE OF IT. PT. REMAIN STABLE AND CONTINUE TO MONITOR. REPORT WILL PASS TO PM SHIFT. AMBU BAG AT THE BEDSIDE. Addendum: 07/03/18 at 1757 by ANGELA REED RT Amended: Links added.
--- NOTE | 2018-07-03 18:53 | NUR ---
RN NOTES PT STILL ON BIPAP, O2 SAT 94%, MORE ALERT AT THIS TIME, STACK DRINING TO GRAVITY , SMALL AMOUNT OF SEROSANGUINEOUS DRINING NOTED AT THE PENIS SITE , WILL ENDORSE TO NIGHT SHIF5 NURSE FOR CONTINUITY OF CARE .
--- NOTE | 2018-07-03 19:00 | NUR ---
RECEIVED PT IN NO ACUTE DISTRESS IN BED. PT IS A/O X 2 AND ABLE TO MAKE NEEDS KNOWN. PT IS ON O2 VIA BIPAP WITH SETTINGS @ 35/5 RATE 26 FIO2 50%. PT TOLERATING WELL. PT HAS F/C THAT IS CLEAN DRY INTACT AND PATENT WITH YELLOW URINE DRAINING. PT HAD TWO IV RIGHT WRIST AND LEFT HAND THAT WERE PULLED OUT BY PATIENT. NO INJURY TO PT DUE TO IV BEING PULLED OUT. AWAITING RN BUSHRA FOR PLACEMENT OF MIDLINE. PT HAS BILATERAL RESTRAINTS WITH GOOD PULSES IN BILATERAL RADIALS WITH FREQUENT PULSE CHECKS. BED IN LOW LOCK POSITION WITH RIALS UP X 2. CALL LIGHT WITHIN REACH AND ALL SAFETY MEASURES ENSURED AND CARRIED OUT. WILL CONTINUE TO MONITOR.
--- NOTE | 2018-07-03 19:38 | NUR ---
JOSUÉ TOMLINSON AT BEDSIDE FOR PLACEMENT OF MIDLINE.
--- NOTE | 2018-07-03 20:58 | NUR ---
RECEIVED PT ON BIPAP 35/5, 26, 50%. NO RESP DISTRESS, TOLERATING SETTINGS. MEPILEX IN PLACE. ALARMS SET AND AUDIBLE. AMBU BAG AT BEDSIDE. WILL CONTINUE TO MONITOR. Addendum: 07/03/18 at 2058 by PAULA SMITH RT Amended: Links added.
[2018-07-03] MEDS: TAMSULOSIN 0.4 MG CAP.SR.24H PO SCH (21:15)
[2018-07-04] VITALS (50 sets, daily range): BP systolic 90–129; BP diastolic 33–81
[2018-07-04] MEDS: VANCOMYCIN 1.25 GM in IV D5W 500 ML IV SCH ×2 (00:47→11:29)
[2018-07-04] MEDS: IPRATROPIUM NEB FS 0.5 MG/2.5 ML AMPUL.NEB NEB SCH ×6 (03:28→23:18)
[2018-07-04] MEDS: ALBUTEROL FS 2.5 MG/0.5 ML VIAL.NEB NEB SCH ×6 (03:28→23:18)
[2018-07-04 04:13] LABS: BASOPHILS # (AUTO) 0.1 /CMM (0.0-0.2); BASOPHILS % (AUTO) 1.2 % (0.0-2.0); EOSINOPHILS % (AUTO) 1.1 % (0.0-6.0); HEMATOCRIT 39 % (39-51); HEMOGLOBIN 12.1 g/dL (13.5-17.5); LYMPHOCYTES # (AUTO) 0.5 /CMM (0.8-4.8); LYMPHOCYTES % (AUTO) 7.2 % (20.0-44.0); MEAN CORPUSCULAR HGB CONC 31 g/dl (31.0-36.0); MEAN CORPUSCULAR VOLUME 95 fL (80-96); MONOCYTES # (AUTO) 0.8 /CMM (0.1-1.30); MONOCYTES % (AUTO) 10.1 % (2.0-12.0); NEUTROPHILS # (AUTO) 6.1 /CMM (1.8-8.9); NEUTROPHILS % (AUTO) 80.4 % (43.0-81.0); PLATELET COUNT (AUTO) 122 /CMM (150-450); RED BLOOD CELL COUNT(AUTO) 4.11 MIL/uL (4.5-6.0); WHITE BLOOD COUNT (AUTO) 7.6 K/uL (4.3-11.0)
[2018-07-04 04:39] LABS: CALCIUM, SERUM 8.3 mg/dL (8.5-10.1); CREATININE 0.9 mg/dL (0.6-1.3); POTASSIUM 3.9 mmol/L (3.5-5.1)
--- NOTE | 2018-07-04 07:06 | NUR ---
RN NOTES RECEIVED PT ON BED , PT IS A/O X 2 , ON BIPAP , SETTINGS @ 35/5 RATE 26 FIO2 50%, TOLERATING WELL, NO DISTRESS NOTED AT THIS TIME, ON TELE SR WITH BBB , HR IN 90'S , FOLY DRINING TO GRAVITY , L UPPER ARM MIDLINE SITE CLEAN, DRY AND INTACT, SR UP x3, CALL LIGHT WITHIN EASY REACH, BED LOCKED AND IN LOWEST POSITION ,CONTINUE TO MONITOR .
[2018-07-04] MEDS: BLOOD SUGAR DIAGNOSTIC 1 EACH STRIP IN SCH ×4 (07:31→21:25)
[2018-07-04] MEDS: FUROSEMIDE 40 MG/4 ML VIAL IV SCH ×2 (08:16→16:29)
[2018-07-04 08:49] LABS: ABG BASE EXCESS 9.7 mmol/L; ABG OXYGEN SATURATION 96.9 % (92.0-98.5); ABG PCO2 64.6 mmHg (35.0-45.0); ABG PH 7.379 (7.350-7.450); ABG PO2 96.3 mmHg (75.0-100.0); AaDO2 187.5 mmHg; COHb 1.5 % (0.5-1.5); MetHb 0.4 % (0.0-1.5); O2Hb 95.1 % (94.0-97.0); PEEP,BG 5 cm H2O; SITE, ABG Left Radial; VENT MODE, BG BIPAP PS 30
[2018-07-04] MEDS: MUPIROCIN OINT 2% 22 GM TUBE SCH ×2 (09:00→21:33)
[2018-07-04] MEDS: PREGABALIN 100 MG CAPSULE PO SCH (09:00)
[2018-07-04] MEDS: METFORMIN 500 MG TABLET PO SCH ×3 (09:00→16:28)
[2018-07-04] MEDS: PROPRANOLOL LA 60 MG CAP.SA.24H PO SCH (09:00)
[2018-07-04] MEDS: CEFEPIME 1 GM in IV D5W 50 ML IV SCH (09:04)
[2018-07-04] MEDS: TOPIRAMATE 100 MG TABLET PO SCH ×2 (09:32→16:28)
[2018-07-04] MEDS: POTASSIUM CHLORIDE 10 MEQ TABLET.SA PO SCH ×2 (09:32→16:29)
[2018-07-04] MEDS: FOLIC ACID 1 MG TABLET PO SCH (09:32)
[2018-07-04] MEDS: GABAPENTIN 300 MG CAPSULE PO SCH ×3 (09:33→16:29)
[2018-07-04] MEDS: DULOXETINE HCL 30 MG CAPSULE.DR PO SCH (09:33)
[2018-07-04] MEDS: DOCUSATE SODIUM 100 MG CAPSULE PO SCH ×2 (09:34→16:29)
[2018-07-04] MEDS: CLOTRIMAZOLE 1% 15 GM TUBE TP SCH ×2 (09:35→16:30)
[2018-07-04] MEDS: Z GUARD REMEDY 2 OZ OINT TP SCH (09:35)
--- NOTE | 2018-07-04 09:50 | NUR ---
RN NOTES PT OFF BIPAP AT THIS TIME , ON 6L O2 N/C , O2 SAT 90-91 %, CONTINUE TO MONITOR
--- NOTE | 2018-07-04 11:00 | NUR ---
RN NOTES PT WANTS TO BE OUT OF BED, MD NOTIFIED , PT CONSULT ORDERED .
[2018-07-04 11:49] LABS: ABG BASE EXCESS 10.9 mmol/L; ABG OXYGEN SATURATION 92.5 % (92.0-98.5); ABG PCO2 67.2 mmHg (35.0-45.0); ABG PH 7.378 (7.350-7.450); ABG PO2 66.4 mmHg (75.0-100.0); COHb 1.4 % (0.5-1.5); MetHb 0.4 % (0.0-1.5); O2Hb 90.8 % (94.0-97.0); SITE, ABG Left Radial; VENT MODE, BG N/C
--- NOTE | 2018-07-04 12:00 | NUR ---
RN NOTES PT ON 6L O2 N/C , O2 SAT IN 93 %, NO SOB NOTES, DR INDIA GOODRICHFED REGARDING ABG RESULTS , NO NEW ORDER GIVEN , CONTINUE TO MONITOR .
[2018-07-04] MEDS: LACTOBACILLUS RHAMNOSUS GG 1 EACH CAP.SPRINK PO SCH (16:29)
--- NOTE | 2018-07-04 18:05 | NUR ---
RN NOTES VSS STABLE, O2 SAT 91% ON 6 L N/C , STACK DRINING TO GRAVITY , L UPPER ARM MIDLINE SITE CLEAN ,DRY , INTACT, SR UP x3, CALL LIGHT WITHIN EASY REACH, BED LOCKED AND IN LOWEST POSITION , WILL ENDOSE TO SALESFORCE BUSINESS ANALYST NURSE FOR CONTINUITY OF CARE .
--- NOTE | 2018-07-04 19:00 | NUR ---
SWEDGER NOTES Received patient drowsy but arousable,responds to name calling,easily awakens, follows simple commands,appropriate. Patient obese on Barri Max bed,moves both arms but hardly able to pull self up in bed.On O2 via nasal cannula 6 L/min , with mild SOB even at rest , deep slightly labored breathing. BIPAP @ HS and PRN. Wound noted on bilateral knees with xeroform/mepilex dressing dry and intact.MID line @ EVANGELIST dressing dry and intact.Comfort care done.needs attended.
--- NOTE | 2018-07-04 20:21 | NUR ---
PT ON 6L NC O2 SAT 91%. PT IS AWAKE ALERT. AVAPS ORDER AT NIGHT. WILL CONTINUE TO MONITOR.
[2018-07-04] MEDS: TAMSULOSIN 0.4 MG CAP.SR.24H PO SCH (21:25)
[2018-07-05] VITALS (67 sets, daily range): BP systolic 70–130; BP diastolic 27–73
--- NOTE | 2018-07-05 | NUR ---
Status unchanged, remains drowsy but easily arousable, on AVAP (TV-700,R-12,45%).tolerating well ,O2 saturation 90-92%.Not in acute distress.
[2018-07-05] MEDS: VANCOMYCIN 1.25 GM in IV D5W 500 ML IV SCH ×3 (00:13→23:36)
--- NOTE | 2018-07-05 02:00 | NUR ---
Heart rate observed to be in the 120's-140's and irregular,patient asymptomatic, BP in the low 90's,if sustaining will do EKG. 0230 Heart rate still in the 130's . EKG done ,shows atrial fibrillation .
--- NOTE | 2018-07-05 03:00 | NUR ---
Still in afib with rate 120's - 130's, remains asymptomatic, QP=016/51. Called MD service,Gerard Pepe responded made him aware of the heart rate(130's-140's) and that is a new onset Afib. No treatment was ordered will closely monitor.
[2018-07-05] MEDS: IPRATROPIUM NEB FS 0.5 MG/2.5 ML AMPUL.NEB NEB SCH ×6 (03:01→23:32)
[2018-07-05] MEDS: ALBUTEROL FS 2.5 MG/0.5 ML VIAL.NEB NEB SCH ×6 (03:02→23:32)
[2018-07-05 03:55] LABS: BASOPHILS % (AUTO) 0.7 % (0.0-2.0); EOSINOPHILS % (AUTO) 1.9 % (0.0-6.0); HEMATOCRIT 39 % (39-51); HEMOGLOBIN 12.3 g/dL (13.5-17.5); LYMPHOCYTES # (AUTO) 0.8 /CMM (0.8-4.8); LYMPHOCYTES % (AUTO) 12.2 % (20.0-44.0); MEAN CORPUSCULAR HGB CONC 32 g/dl (31.0-36.0); MEAN CORPUSCULAR VOLUME 94 fL (80-96); MONOCYTES # (AUTO) 0.7 /CMM (0.1-1.30); MONOCYTES % (AUTO) 10.9 % (2.0-12.0); NEUTROPHILS # (AUTO) 4.8 /CMM (1.8-8.9); NEUTROPHILS % (AUTO) 74.3 % (43.0-81.0); PLATELET COUNT (AUTO) 99 /CMM (150-450); RED BLOOD CELL COUNT(AUTO) 4.15 MIL/uL (4.5-6.0); WHITE BLOOD COUNT (AUTO) 6.4 K/uL (4.3-11.0)
[2018-07-05 04:06] LABS: CALCIUM, SERUM 8.2 mg/dL (8.5-10.1); CREATININE 0.8 mg/dL (0.6-1.3); MAGNESIUM 1.6 mg/dL (1.8-2.4); PHOSPHORUS 2.3 mg/dL (2.5-4.9); POTASSIUM 3.6 mmol/L (3.5-5.1)
--- NOTE | 2018-07-05 05:59 | NUR ---
PT TAKEN OFF BIPAP. RN AT BEDSIDE. PLACED ON 6L NC.
--- NOTE | 2018-07-05 06:30 | NUR ---
Noted hematuria(dark red) and blood clot draining out of the oquendo catheter, irrigated with 30 ml. irrigation NSS solution, flushes well but no return ( done 3 x) ,still no return.Called Gerard Pepe made him aware of the gross hematuria ,said not to keep flushing oquendo and get a Urulogy consult.
[2018-07-05] MEDS: BLOOD SUGAR DIAGNOSTIC 1 EACH STRIP IN SCH ×4 (07:30→21:17)
[2018-07-05] MEDS: MUPIROCIN OINT 2% 22 GM TUBE SCH ×2 (07:30→20:36)
[2018-07-05] MEDS: METFORMIN 500 MG TABLET PO SCH ×2 (08:00→17:46)
[2018-07-05] MEDS: DOCUSATE SODIUM 100 MG CAPSULE PO SCH ×2 (08:00→17:47)
[2018-07-05] MEDS: NEUTRA PHOS 1 POWD.PACKET PO SCH ×2 (08:00→16:30)
--- NOTE | 2018-07-05 08:00 | NUR ---
pt recived on nc, 6l, appears comfortable on left side, pt has no urine in oquendo, hr afib rapid rate, await cardio and urology to see pt/pt afebrile in zero apparent distress, cooperative and talking/1030 pt oquendo drained 300cc hematuria/but urine clearing as it comes, pt becoming restless but sat in correct range/pt refused breakfast but bs is good at 120/pt afebrile, hr tachy still//1400pt placed back on bipap as he appears in some distress/pt hr very tachy/1hour after placed to bipap, pt hr now sinus, pt appears asleep but easily aroused//1800 pt consumed only the ice cream from his dinner tray, hr sinus/pt back to nc, tolerqating well, and ppt cleaned, anti fungal cream to grioin and dressings on back knees and heel changed//pt tolerated cleaning well/vs stable
[2018-07-05 08:29] LABS: ABG BASE EXCESS 10.2 mmol/L; ABG OXYGEN SATURATION 93.8 % (92.0-98.5); ABG PCO2 73.1 mmHg (35.0-45.0); ABG PH 7.343 (7.350-7.450); ABG PO2 74.2 mmHg (75.0-100.0); AaDO2 148.9 mmHg; COHb 1.9 % (0.5-1.5); MetHb 0.3 % (0.0-1.5); O2Hb 91.7 % (94.0-97.0); SITE, ABG Right Radial; VENT MODE, BG 6L N/C
[2018-07-05] MEDS: CLOTRIMAZOLE 1% 15 GM TUBE TP SCH ×2 (09:00→17:41)
[2018-07-05] MEDS: Z GUARD REMEDY 2 OZ OINT TP SCH (09:00)
[2018-07-05] MEDS: INSULIN REGULAR, HUMAN 100 UNIT/ML 3 ML VIAL SQ PRN ×3 (10:10→17:57)
[2018-07-05] MEDS: POTASSIUM CHLORIDE 20 MEQ TAB.PRT.SR PO SCH ×3 (10:11→11:51)
[2018-07-05] MEDS: Magnesium 1GM/D5W 100ML PREMIX 100 ML IV SCH ×2 (10:11→12:12)
[2018-07-05] MEDS: TOPIRAMATE 100 MG TABLET PO SCH ×2 (10:12→17:47)
[2018-07-05] MEDS: POTASSIUM CHLORIDE 10 MEQ TABLET.SA PO SCH ×2 (10:12→17:47)
[2018-07-05] MEDS: PROPRANOLOL LA 60 MG CAP.SA.24H PO SCH (10:12)
[2018-07-05] MEDS: GABAPENTIN 300 MG CAPSULE PO SCH ×3 (10:13→17:46)
[2018-07-05] MEDS: PREGABALIN 100 MG CAPSULE PO SCH (10:13)
[2018-07-05] MEDS: LACTOBACILLUS RHAMNOSUS GG 1 EACH CAP.SPRINK PO SCH ×2 (10:13→17:47)
[2018-07-05] MEDS: FOLIC ACID 1 MG TABLET PO SCH (10:13)
[2018-07-05] MEDS: FUROSEMIDE 40 MG/4 ML VIAL IV SCH ×2 (10:13→17:46)
[2018-07-05] MEDS: DULOXETINE HCL 30 MG CAPSULE.DR PO SCH (10:13)
[2018-07-05] MEDS: ACETYLCYSTEINE 10% SOLN 400 MG/4 ML VIAL NEB SCH ×3 (11:00→23:33)
[2018-07-05] MEDS: DIGOXIN INJ 0.5 MG/2 ML AMPUL IV SCH ×3 (11:52→23:35)
[2018-07-05] MEDS: CEFEPIME 2 GM in IV D5W 100 ML IV SCH ×2 (11:54→20:34)
[2018-07-05 13:10] LABS: ABG BASE EXCESS 8.7 mmol/L; ABG OXYGEN SATURATION 93.8 % (92.0-98.5); ABG PCO2 74.8 mmHg (35.0-45.0); ABG PH 7.319 (7.350-7.450); ABG PO2 77.1 mmHg (75.0-100.0); AaDO2 268.4 mmHg; COHb 1.6 % (0.5-1.5); MetHb 0.7 % (0.0-1.5); O2Hb 91.6 % (94.0-97.0); SITE, ABG Left Radial; VT, ABG 700 mL
--- NOTE | 2018-07-05 13:18 | NUR ---
RT PATIENT PLACED BACK ON BIPAP AVAPS MODE FOR SOB. Addendum: 07/05/18 at 1318 by RADHA SANTIAGO RT Amended: Links added.
--- NOTE | 2018-07-05 16:01 | NUR ---
Due to patient habitus inability to position patient
--- NOTE | 2018-07-05 19:20 | NUR ---
pt placed on avaps for sob, o2sat increased from mid 80s to low 90s. pt hr also decreased, pt appears comfortable now
--- NOTE | 2018-07-05 20:36 | NUR ---
RT NOTE PATIENT RECEIVED ON 28% NASAL CANNULA. PLACED PATIENT ON AVAPS WITH CURRENT SETTINGS OF MIN 15/MAX 35, EPAP 14, BUR 12, VT 700, 60%. BIPAP PLUGGED TO RED OUTLET. MEPILEX APPLIED TO FACE. MASK SECURED. PATIENT RESPONDS TO COMMANDS. TX GIVEN, NO ADVERSE REACTIONS NOTED. DIMINISHED B/S NOTED. WILL CONTINUE TO MONITOR. Addendum: 07/05/18 at 2038 by AVRIL SUTTON RT Amended: Links added.
[2018-07-05] MEDS: TAMSULOSIN 0.4 MG CAP.SR.24H PO SCH (21:33)
[2018-07-06] VITALS (29 sets, daily range): BP systolic 97–138; BP diastolic 41–76
--- NOTE | 2018-07-06 01:00 | NUR ---
PT REFUSED BIPAP, PLACED ON 6L NASAL CANNULA, 02SAT 82-86%, PT AWAKE ALERT, RR 30S
--- NOTE | 2018-07-06 01:25 | NUR ---
PT PLACED BACK ON AVAPS FOR LOW O2SAT 86% AND INCREASED RESPIRATORY RATE, 02SAT INCREASED TO 92%
--- NOTE | 2018-07-06 01:38 | NUR ---
RT NOTE PATIENT PLACED ON NOSE MASK. PATIENT MORE COMFORTABLE WITH LESS LEAK. PATIENT STABLE AT THIS TIME. WILL MONITOR.
[2018-07-06] MEDS: IPRATROPIUM NEB FS 0.5 MG/2.5 ML AMPUL.NEB NEB SCH ×6 (03:34→23:28)
[2018-07-06] MEDS: ALBUTEROL FS 2.5 MG/0.5 ML VIAL.NEB NEB SCH ×6 (03:34→23:28)
[2018-07-06] MEDS: CEFEPIME 2 GM in IV D5W 100 ML IV SCH ×3 (04:02→21:20)
[2018-07-06 05:12] LABS: BASOPHILS # (AUTO) 0.1 /CMM (0.0-0.2); EOSINOPHILS % (AUTO) 1.7 % (0.0-6.0); HEMATOCRIT 39 % (39-51); HEMOGLOBIN 12.3 g/dL (13.5-17.5); LYMPHOCYTES # (AUTO) 0.4 /CMM (0.8-4.8); LYMPHOCYTES % (AUTO) 5.7 % (20.0-44.0); MEAN CORPUSCULAR HGB CONC 32 g/dl (31.0-36.0); MEAN CORPUSCULAR VOLUME 94 fL (80-96); MONOCYTES # (AUTO) 0.6 /CMM (0.1-1.30); MONOCYTES % (AUTO) 9.6 % (2.0-12.0); NEUTROPHILS # (AUTO) 5.4 /CMM (1.8-8.9); PLATELET COUNT (AUTO) 93 /CMM (150-450); RED BLOOD CELL COUNT(AUTO) 4.14 MIL/uL (4.5-6.0); WHITE BLOOD COUNT (AUTO) 6.6 K/uL (4.3-11.0)
[2018-07-06 05:27] LABS: CALCIUM, SERUM 8.2 mg/dL (8.5-10.1); CREATININE 0.9 mg/dL (0.6-1.3); MAGNESIUM 1.9 mg/dL (1.8-2.4); PHOSPHORUS 2.6 mg/dL (2.5-4.9); POTASSIUM 3.8 mmol/L (3.5-5.1)
[2018-07-06 06:15] LABS: LYMPHOCYTES % (MANUAL) 8 % (16-48); MONOCYTES % (MANUAL) 11 % (0-11.0); NEUTROPHILS % (MANUAL) 81 (42-76)
[2018-07-06] MEDS ORDERED: acetaZOLAMIDE SODIUM 500 MG/VIAL VIAL IV ONE (07:30)
[2018-07-06] MEDS: ACETYLCYSTEINE 10% SOLN 400 MG/4 ML VIAL NEB SCH ×3 (07:32→23:28)
--- NOTE | 2018-07-06 07:47 | NUR ---
RN NOTES RECEIVED PT ON BED , A/Ox3, ON 6L O2 N/C , NO SOB NOTED, O2 SAT 92%, ON TELE SR -ST , SEDA DRINING TO GRAVITY, R UPPER ARM MIDLINE SITE , CLEAN, DRY AND INTACT, SR UP x3, CALL LIGHT WITHIN EASY REACH, BED LOCKED AND IN LOWEST POSITION , CONTINUE TO MONITOR .
[2018-07-06] MEDS: BLOOD SUGAR DIAGNOSTIC 1 EACH STRIP IN SCH ×4 (08:22→22:22)
[2018-07-06] MEDS: TOPIRAMATE 100 MG TABLET PO SCH ×2 (08:22→16:23)
[2018-07-06] MEDS: DOCUSATE SODIUM 100 MG CAPSULE PO SCH ×2 (08:23→16:23)
[2018-07-06] MEDS: PREGABALIN 100 MG CAPSULE PO SCH (08:23)
[2018-07-06] MEDS: METFORMIN 500 MG TABLET PO SCH ×2 (08:23→16:24)
[2018-07-06] MEDS: DULOXETINE HCL 30 MG CAPSULE.DR PO SCH (08:24)
[2018-07-06] MEDS: GABAPENTIN 300 MG CAPSULE PO SCH ×3 (08:24→16:24)
[2018-07-06] MEDS: LACTOBACILLUS RHAMNOSUS GG 1 EACH CAP.SPRINK PO SCH ×2 (08:24→16:23)
[2018-07-06] MEDS: PROPRANOLOL LA 60 MG CAP.SA.24H PO SCH (08:24)
[2018-07-06] MEDS: FOLIC ACID 1 MG TABLET PO SCH (08:24)
[2018-07-06] MEDS: Z GUARD REMEDY 2 OZ OINT TP SCH (08:25)
[2018-07-06] MEDS: CLOTRIMAZOLE 1% 15 GM TUBE TP SCH ×2 (08:25→16:24)
[2018-07-06] MEDS: MUPIROCIN OINT 2% 22 GM TUBE SCH ×2 (08:26→21:20)
--- NOTE | 2018-07-06 08:33 | NUR ---
RN NOTES DIAMOX IS NOT AVAILABLE FROM PHARMACY YET , PHARMACY NOTIFED .
--- NOTE | 2018-07-06 12:00 | NUR ---
RN NOTES VSS STABLE , CONTINUE TO MONITOR
[2018-07-06] MEDS: VANCOMYCIN 1.25 GM in IV D5W 500 ML IV SCH ×2 (12:10→23:51)
[2018-07-06] MEDS: GLUCERNA SHAKE 237 ML CAN PO SCH (16:00)
[2018-07-06] MEDS: INSULIN REGULAR, HUMAN 100 UNIT/ML 3 ML VIAL SQ PRN (17:27)
--- NOTE | 2018-07-06 18:26 | NUR ---
RN NOTES NO SIGNIFICANT CHANGES NOTED ON THIS SHIFT, BM x4 NOTED, SR UP x3, CALL LIGHT WITHIN EASY REACH, BED LOCKED AND IN LOWEST POSITION, WILL ENDOSE TO GARAGE LABORER NURSE FOR CONTINUITY OF CARE
--- NOTE | 2018-07-06 19:32 | NUR ---
PATIENT RECEIVED ON 5L NASAL CANNULA. PLACED PATIENT ON NOCTURNAL AVAPS MODE WITH NOTED SETTINGS. BIPAP PLUGGED TO RED OUTLET. PT IS AWAKE, ALERT AND RESPONDS TO COMMANDS. BREATHING TX GIVEN, NO ADVERSE REACTIONS NOTED. DIMINISHED B/S NOTED. NO RESPIRATORY DISTRESS NOTED AT THIS TIME. WILL CONTINUE TO MONITOR THE PT.
[2018-07-06] MEDS: TAMSULOSIN 0.4 MG CAP.SR.24H PO SCH (22:22)
[2018-07-07] VITALS (30 sets, daily range): BP systolic 97–134; BP diastolic 45–87
[2018-07-07] MEDS: ALBUTEROL FS 2.5 MG/0.5 ML VIAL.NEB NEB SCH ×6 (03:15→23:59)
[2018-07-07] MEDS: IPRATROPIUM NEB FS 0.5 MG/2.5 ML AMPUL.NEB NEB SCH ×6 (03:15→23:59)
[2018-07-07 04:25] LABS: BASOPHILS # (AUTO) 0.1 /CMM (0.0-0.2); EOSINOPHILS % (AUTO) 3.8 % (0.0-6.0); HEMATOCRIT 41 % (39-51); HEMOGLOBIN 12.6 g/dL (13.5-17.5); LYMPHOCYTES # (AUTO) 0.7 /CMM (0.8-4.8); LYMPHOCYTES % (AUTO) 11.5 % (20.0-44.0); MEAN CORPUSCULAR HGB CONC 31 g/dl (31.0-36.0); MEAN CORPUSCULAR VOLUME 95 fL (80-96); MONOCYTES # (AUTO) 0.8 /CMM (0.1-1.30); MONOCYTES % (AUTO) 12.3 % (2.0-12.0); NEUTROPHILS # (AUTO) 4.4 /CMM (1.8-8.9); NEUTROPHILS % (AUTO) 71.4 % (43.0-81.0); PLATELET COUNT (AUTO) 92 /CMM (150-450); RED BLOOD CELL COUNT(AUTO) 4.28 MIL/uL (4.5-6.0); WHITE BLOOD COUNT (AUTO) 6.1 K/uL (4.3-11.0)
[2018-07-07 04:38] LABS: CALCIUM, SERUM 8.3 mg/dL (8.5-10.1); CREATININE 0.8 mg/dL (0.6-1.3); POTASSIUM 3.8 mmol/L (3.5-5.1)
[2018-07-07] MEDS: CEFEPIME 2 GM in IV D5W 100 ML IV SCH ×3 (05:23→21:18)
[2018-07-07] MEDS: ACETYLCYSTEINE 10% SOLN 400 MG/4 ML VIAL NEB SCH ×3 (07:12→23:59)
[2018-07-07] MEDS: BLOOD SUGAR DIAGNOSTIC 1 EACH STRIP IN SCH ×4 (07:30→22:04)
--- NOTE | 2018-07-07 07:41 | NUR ---
RT NOTE RECEIVED PT ON BIPAP AVAPS MODE ON SETTINGS PRESCRIBED. PT RESPONDS TO QUESTIONS APPEARS AWAKE AND ALERT. BIPAP MASK FOUND TO BE DIFFICULT TO SECURE, KEEPS SLIDING OFF. SECURED MASK MUCH POSSIBLE. PT TRIED OFF OF BIPAP AND PLACED ON NC AT 5 LITER 02. PT SATURATION FELL DOWN TO 82%. PT PLACED BACK ON BIPAP. Addendum: 07/07/18 at 0745 by RANJAN MOREAU RT Amended: Links added.
--- NOTE | 2018-07-07 08:53 | NUR ---
RT NOTE PT REPOSITIONED TO RIGHT SIDE BY VEGA MIJARES. PT PLACED ON NC @ 5L. PT TOLERATION SO FAR. NO DISTRESS NOTED. PT AWAKE AND ALERT. Addendum: 07/07/18 at 0855 by RANJAN MOREAU RT Amended: Links added.
[2018-07-07] MEDS: DOCUSATE SODIUM 100 MG CAPSULE PO SCH ×2 (09:00→17:00)
[2018-07-07] MEDS: LACTOBACILLUS RHAMNOSUS GG 1 EACH CAP.SPRINK PO SCH ×2 (09:03→17:37)
[2018-07-07] MEDS: GABAPENTIN 300 MG CAPSULE PO SCH ×3 (09:03→17:38)
[2018-07-07] MEDS: TOPIRAMATE 100 MG TABLET PO SCH ×2 (09:04→17:38)
[2018-07-07] MEDS: PROPRANOLOL LA 60 MG CAP.SA.24H PO SCH (09:04)
[2018-07-07] MEDS: DULOXETINE HCL 30 MG CAPSULE.DR PO SCH (09:04)
[2018-07-07] MEDS: PREGABALIN 100 MG CAPSULE PO SCH (09:04)
[2018-07-07] MEDS: FOLIC ACID 1 MG TABLET PO SCH (09:04)
[2018-07-07] MEDS: METFORMIN 500 MG TABLET PO SCH ×2 (09:04→17:38)
[2018-07-07] MEDS: Z GUARD REMEDY 2 OZ OINT TP SCH (09:05)
[2018-07-07] MEDS: CLOTRIMAZOLE 1% 15 GM TUBE TP SCH ×2 (09:05→17:36)
[2018-07-07] MEDS: GLUCERNA SHAKE 237 ML CAN PO SCH (09:10)
[2018-07-07] MEDS: INSULIN REGULAR, HUMAN 100 UNIT/ML 3 ML VIAL SQ PRN ×3 (09:12→17:38)
[2018-07-07 09:35] LABS: ABG OXYGEN SATURATION 86.7 % (92.0-98.5); ABG PCO2 77.1 mmHg (35.0-45.0); ABG PH 7.292 (7.350-7.450); ABG PO2 56.3 mmHg (75.0-100.0); AaDO2 169.5 mmHg; COHb 1.3 % (0.5-1.5); MetHb 0.4 % (0.0-1.5); O2Hb 85.2 % (94.0-97.0); SITE, ABG Right Radial; VENT MODE, BG 6L NC
[2018-07-07] MEDS: VANCOMYCIN 1.25 GM in IV D5W 500 ML IV SCH (13:00)
--- NOTE | 2018-07-07 18:21 | NUR ---
pt is recieved on bipap/placed on nc at 9am pt appears to tolerate well and in no distress however pt eats only small pieces of egg for breakfast/pt awake alert oriented x 3 but constantly asked to sit on edge of bed/per PT therapy, pt not yet strong enough to sit on edge of bed but making great progress, afebrile, abg on 6lnc is acidotic, but pt doesnt appear in any distress./bs stable/pt slept through lunch, dinner time took all po meds and ate half of a roast beef sandwich/most he has eaten in days//pt in zero apparent distress holding colace because pt passed x1 liquid stooll large in bed today//vs stable,02 sat 91% on nc//mw
--- NOTE | 2018-07-07 18:27 | NUR ---
[id number] spoke to pt brother Renate who explained pt did not sound happy when they spoke, asked pt if he had any problem, pt states he wants to sit on edge of bed, explained it is very risky as he is very much weak but pt did feed himslf today/renate recieved update//wm
--- NOTE | 2018-07-07 18:30 | NUR ---
cleaned pt//all dressings changed on back and knees, lotrimin applied to red areas//pt tolerated well//mw
--- NOTE | 2018-07-07 19:50 | NUR ---
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 WITH O2 5LPM VIA NC. NOTED WITH SOB SATURATION 86%. PT REFUSED TO PLACED BIPAP AT FIRST RT EXPLAINED AND PT DECIDED TO PLACED BIPAP SETTING ORDERED. SATURATION WENT UP TO 92% SR WITH BBB ON TELE MONITOR. ORLY MIDLINE NOT WORKING IV SITE ON RIGHT HAND G 20 INTACT AND PATENT. F/C DRAINED WITH LALIT COLOR URINE. KEPT PT CLEAN AND COMFORTABLE IN BED. REPOSITIONED. CALL LIGHT KEPT WITHIN EASY REACH WILL CONTINUE TO MONITOR.
[2018-07-07] MEDS: TAMSULOSIN 0.4 MG CAP.SR.24H PO SCH (21:18)
[2018-07-08] VITALS (28 sets, daily range): BP systolic 96–127; BP diastolic 41–79
[2018-07-08] MEDS: VANCOMYCIN 1.25 GM in IV D5W 500 ML IV SCH ×2 (00:28→11:34)
[2018-07-08] MEDS: ALBUTEROL FS 2.5 MG/0.5 ML VIAL.NEB NEB SCH ×5 (03:02→19:51)
[2018-07-08] MEDS: IPRATROPIUM NEB FS 0.5 MG/2.5 ML AMPUL.NEB NEB SCH ×5 (03:02→19:51)
[2018-07-08 05:22] LABS: BASOPHILS # (AUTO) 0.1 /CMM (0.0-0.2); BASOPHILS % (AUTO) 0.9 % (0.0-2.0); EOSINOPHILS % (AUTO) 3.6 % (0.0-6.0); HEMATOCRIT 41 % (39-51); HEMOGLOBIN 12.7 g/dL (13.5-17.5); LYMPHOCYTES # (AUTO) 0.6 /CMM (0.8-4.8); LYMPHOCYTES % (AUTO) 11.1 % (20.0-44.0); MEAN CORPUSCULAR HGB CONC 31 g/dl (31.0-36.0); MEAN CORPUSCULAR VOLUME 94 fL (80-96); MONOCYTES # (AUTO) 0.6 /CMM (0.1-1.30); MONOCYTES % (AUTO) 9.8 % (2.0-12.0); NEUTROPHILS # (AUTO) 4.3 /CMM (1.8-8.9); NEUTROPHILS % (AUTO) 74.6 % (43.0-81.0); PLATELET COUNT (AUTO) 98 /CMM (150-450); RED BLOOD CELL COUNT(AUTO) 4.33 MIL/uL (4.5-6.0); WHITE BLOOD COUNT (AUTO) 5.8 K/uL (4.3-11.0)
[2018-07-08 05:28] LABS: CALCIUM, SERUM 8.6 mg/dL (8.5-10.1); CREATININE 0.8 mg/dL (0.6-1.3)
[2018-07-08] MEDS: CEFEPIME 2 GM in IV D5W 100 ML IV SCH ×3 (05:34→21:20)
--- NOTE | 2018-07-08 07:00 | NUR ---
INSURANCE CLAIMS SPECIALIST INITIAL NOTES RECEIVED PT IN BED, ON BIPAP. O2 SAT WNL. NO S/SX OF RESP DISTRESS NOTED. BLOOD SUGAR WNL. PT IS A/OX3. ON TELE SR WITH BBB. F/C DRAINING LALIT COLORED URINE. ORLY MIDLINE IN PLACE WITH NO BLOOD RETURN BUT FLUSHES WELL. RH #20 C/D/P/I. PT IS AFEBRILE. ABD SOFT AND ACTIVE BS. LUNG SOUNDS COARSE CRACKLES UPPER LOBES. BED IN LOCKED/LOWEST POSITION. CALL LIGHT IN REACH. WILL CONT TO MONITOR.
--- NOTE | 2018-07-08 07:26 | NUR ---
RN NOTES PT REMAINED IN THE SAME CONDITION. CONTINUE WITH BIPAP ORDERED. NO SIGNIFICANT CHANGES NOTED. AFEBRILE. VSS ALL DUE MEDICINE TOLERATED WELL. TELE MONITOR REVEALS SR WITH BBB. IV SITE KEPT INTACT ANS PATENT. F/C DRAINED WELL. CONTINUE ON IV ATB ORDERED. TURNED AND REPOSITIONED PT COMFORTABLE. KEPT PT CLEAN AND DRY. ENDORSED CONTINUITY OF CARE TO AM NURSE.
[2018-07-08] MEDS: BLOOD SUGAR DIAGNOSTIC 1 EACH STRIP IN SCH ×4 (07:52→21:24)
[2018-07-08] MEDS: ACETYLCYSTEINE 10% SOLN 400 MG/4 ML VIAL NEB SCH ×2 (08:10→15:13)
[2018-07-08] MEDS: TOPIRAMATE 100 MG TABLET PO SCH ×2 (08:41→16:58)
[2018-07-08] MEDS: METFORMIN 500 MG TABLET PO SCH ×2 (08:41→16:58)
[2018-07-08] MEDS: PREGABALIN 100 MG CAPSULE PO SCH (08:41)
[2018-07-08] MEDS: DULOXETINE HCL 30 MG CAPSULE.DR PO SCH (08:42)
[2018-07-08] MEDS: FOLIC ACID 1 MG TABLET PO SCH (08:42)
[2018-07-08] MEDS: Z GUARD REMEDY 2 OZ OINT TP SCH (08:42)
[2018-07-08] MEDS: CLOTRIMAZOLE 1% 15 GM TUBE TP SCH ×2 (08:42→16:58)
[2018-07-08] MEDS: DOCUSATE SODIUM 100 MG CAPSULE PO SCH ×2 (08:42→16:58)
[2018-07-08] MEDS: LACTOBACILLUS RHAMNOSUS GG 1 EACH CAP.SPRINK PO SCH ×2 (08:42→16:58)
[2018-07-08] MEDS: PROPRANOLOL LA 60 MG CAP.SA.24H PO SCH (08:42)
[2018-07-08] MEDS: GABAPENTIN 300 MG CAPSULE PO SCH ×3 (08:42→16:58)
[2018-07-08] MEDS: GLUCERNA SHAKE 237 ML CAN PO SCH (09:19)
--- NOTE | 2018-07-08 19:03 | NUR ---
ICU END OF SHIFT NOTES PT RESTING IN BED, NO S/SX OF RESP DISTRESS/AMS. PT A/OX3, ON TELE SR WITH BBB. ON 5.5L NC O2 SAT 89-90%. TOLERATED MEDS/BED BATH/REPOSITIONING/WOUND TX WELL. F/C DRAINING WELL. BS WNL THROUGHOUT SHIFT. PT PREFERS TO BE ON LEFT SIDE. BED IN LOCKED/LOWEST POSITION. CALL LIGHT IN REACH. WILL ENDORSE TO PM NURSE FOR RHIANNA.
--- NOTE | 2018-07-08 20:00 | NUR ---
RN/ICU NOTES: RECEIVED PT. SLEEPING ON HIS LEFT SIDE W/ BIPAP W/ O2 SAT 89 %. NO S/S OF RESPIRATORY DISTRESS NOTED. DENIES ANY C/O PAIN OR DISCOMFORT NOTED AT THIS TIME. ALERT AND ORIENTED X 3. ON TELE MONITOR W/ NSR . ORLY MID LINE IN PLACE W/ DRESSING C/D/I. RH G 20 PATENT AND INTACT W/ NO S/S OF INFECTION/INFILTRATION NOTED. W/ F/C PATENT AND INTACT DRAINING VIA GRAVITY. CALL LIGHT W/ REACH. WILL CONTINUE TO MONITOR.
[2018-07-08] MEDS: TAMSULOSIN 0.4 MG CAP.SR.24H PO SCH (21:20)
[2018-07-09] VITALS (24 sets, daily range): BP systolic 75–151; BP diastolic 50–93
[2018-07-09] MEDS: IPRATROPIUM NEB FS 0.5 MG/2.5 ML AMPUL.NEB NEB SCH ×7 (00:19→23:17)
[2018-07-09] MEDS: ACETYLCYSTEINE 10% SOLN 400 MG/4 ML VIAL NEB SCH ×4 (00:19→23:17)
[2018-07-09] MEDS: ALBUTEROL FS 2.5 MG/0.5 ML VIAL.NEB NEB SCH ×7 (00:19→23:17)
[2018-07-09 05:24] LABS: BASOPHILS # (AUTO) 0.1 /CMM (0.0-0.2); EOSINOPHILS % (AUTO) 4.3 % (0.0-6.0); HEMATOCRIT 41 % (39-51); HEMOGLOBIN 12.6 g/dL (13.5-17.5); LYMPHOCYTES # (AUTO) 0.8 /CMM (0.8-4.8); LYMPHOCYTES % (AUTO) 13.4 % (20.0-44.0); MEAN CORPUSCULAR HGB CONC 31 g/dl (31.0-36.0); MEAN CORPUSCULAR VOLUME 94 fL (80-96); MONOCYTES # (AUTO) 0.5 /CMM (0.1-1.30); MONOCYTES % (AUTO) 8.8 % (2.0-12.0); NEUTROPHILS # (AUTO) 4.3 /CMM (1.8-8.9); NEUTROPHILS % (AUTO) 72.5 % (43.0-81.0); PLATELET COUNT (AUTO) 95 /CMM (150-450); RED BLOOD CELL COUNT(AUTO) 4.32 MIL/uL (4.5-6.0); WHITE BLOOD COUNT (AUTO) 5.9 K/uL (4.3-11.0)
[2018-07-09] MEDS: CEFEPIME 2 GM in IV D5W 100 ML IV SCH ×2 (05:28→12:21)
[2018-07-09 05:32] LABS: CALCIUM, SERUM 8.6 mg/dL (8.5-10.1); CREATININE 0.8 mg/dL (0.6-1.3); POTASSIUM 4.2 mmol/L (3.5-5.1)
--- NOTE | 2018-07-09 06:24 | NUR ---
PT TAKEN OFF BIPAP. PLACED ON 6L NC.
--- NOTE | 2018-07-09 07:28 | NUR ---
RN/ICU NOTES: REPORT GIVEN TO AM SHIFT NURSE FOR RHIANNA.
[2018-07-09] MEDS ORDERED: BUMETANIDE INJ 8 MG in IV NS 0.9% 48 ML IV ONE (08:00)
--- NOTE | 2018-07-09 08:00 | NUR ---
icu staff nurse note received patent in bed ,alert oriented with slight sob noted,rt at bedside breathing tx doing at this time komal quesada bed is not working well will f\u charge nurse notifyed , rt upper arm ml in place, blood Sugar checked as ordered, no s\s \hypoglycemic reaction noted bed in lowest and locked position , plan of care discussed with patient , will cont to monitor closely
[2018-07-09] MEDS: BLOOD SUGAR DIAGNOSTIC 1 EACH STRIP IN SCH ×4 (08:05→21:46)
[2018-07-09] MEDS: PROPRANOLOL LA 60 MG CAP.SA.24H PO SCH (08:27)
[2018-07-09] MEDS: PREGABALIN 100 MG CAPSULE PO SCH (08:27)
[2018-07-09] MEDS: FOLIC ACID 1 MG TABLET PO SCH (08:28)
[2018-07-09] MEDS: DOCUSATE SODIUM 100 MG CAPSULE PO SCH ×2 (08:28→16:25)
[2018-07-09] MEDS: METFORMIN 500 MG TABLET PO SCH ×2 (08:28→16:26)
[2018-07-09] MEDS: DULOXETINE HCL 30 MG CAPSULE.DR PO SCH (08:28)
[2018-07-09] MEDS: LACTOBACILLUS RHAMNOSUS GG 1 EACH CAP.SPRINK PO SCH ×2 (08:28→16:26)
[2018-07-09] MEDS: TOPIRAMATE 100 MG TABLET PO SCH ×2 (08:28→16:27)
[2018-07-09] MEDS: GLUCERNA SHAKE 237 ML CAN PO SCH (08:29)
[2018-07-09] MEDS: GABAPENTIN 300 MG CAPSULE PO SCH ×3 (08:30→16:27)
[2018-07-09] MEDS: CLOTRIMAZOLE 1% 15 GM TUBE TP SCH ×2 (08:35→16:27)
[2018-07-09] MEDS: Z GUARD REMEDY 2 OZ OINT TP SCH (08:35)
--- NOTE | 2018-07-09 08:43 | NUR ---
curriculum assistant note Bumex drip started as ordered , will monitor urine output
--- NOTE | 2018-07-09 10:00 | NUR ---
horticultural nursery assistant note turn reposition ,bed not functioning well m,call customer service
--- NOTE | 2018-07-09 11:38 | NUR ---
supervisor agricultural education note report given tp darrell foreman icu
[2018-07-09] MEDS: INSULIN REGULAR, HUMAN 100 UNIT/ML 3 ML VIAL SQ PRN ×3 (11:44→21:46)
--- NOTE | 2018-07-09 12:15 | NUR ---
Pt seen & examined by Dr. Murrell. Dr. Jackson ordered may transfer pt to [facility].
--- NOTE | 2018-07-09 18:00 | NUR ---
MANAGER SPORTSTHERMOCOUPLE TESTER NOTES: Pt transferred via Barimaxx bed, not in any distress, A/O x 3, denies any pain/discomfort. On NC at 6lpm to kept sat >88%. SR on telemonitor. IV line access on ORLY ML kept patent & intact w/ no s/sx of infection/infiltration noted. Has FC draining to BSB, s/p Bumex drip infusion x1. Wound care done. Pt turned & repositioned q2H & PRN. Pt's barimaxx bed is defective, this was reported this AM by Analisa RN, rec'd callback from them to inquire if pt's bed is still deflated, made them aware pt's bed is still not functioning well - CN informed. Contact isolation precaution observed at all times. Safety precaution in place at all times w/ bed in lowest & locked pos. Call light w/in reach. Pt fed w/ strict aspiration precaution. All belongings/valuables sent w/ pt including pt's medication. Report given to Lela at bedside. No concerns/issues upon transfer.
--- NOTE | 2018-07-09 19:30 | NUR ---
RN NOTES, Patient awake A/O x 3, breathing even and unlabored, no sob/acute distress noted at this time, denies any pain/discomfort, on o2 6lmp via nc to kept sat >88%, 02 sat level 92% at this time SR on telemonitor hr in the 70s at this time, IV line access on ORLY midline patent & intact w/ no s/s infiltration noted, FC draining yellow urine by gravity, Contact isolation precaution in placed all times, safety precaution in place at all times, bed locked and lowest and lowest position, call light w/i reach, all needs provided, will continue to monitor closely, awaiting for company to fix the mattress.
[2018-07-09] MEDS: TAMSULOSIN 0.4 MG CAP.SR.24H PO SCH (21:39)
[2018-07-10] VITALS (7 sets, daily range): BP systolic 103–117; BP diastolic 54–80
--- NOTE | 2018-07-10 00:30 | NUR ---
RN NOTES, PATIENT ON BIPAP SLEEPING AT THIS TIME, TOLERATED WELL, NO SOB/RESPIRATORY DISTRESS NOTED, WILL CONTINUE TO MONITOR CLOSELY.
[2018-07-10] MEDS: IPRATROPIUM NEB FS 0.5 MG/2.5 ML AMPUL.NEB NEB SCH ×6 (02:52→23:03)
[2018-07-10] MEDS: ALBUTEROL FS 2.5 MG/0.5 ML VIAL.NEB NEB SCH ×6 (02:52→23:03)
--- NOTE | 2018-07-10 06:41 | NUR ---
RN NOTES, Patient sleeping at this time, breathing even and unlabored, no sob/acute distress noted at this time, denies any pain/discomfort, on o2 6lmp via nc to kept sat >88%, with optimal o2 sat level IV line access on ORLY midline patent & intact w/ no s/s infiltration noted, FC draining yellow urine by gravity, Contact isolation precaution in placed all times, no significant change in condition during the night, safety precaution in place at all times, bed locked and lowest position, call light w/i reach, all needs provided, will endorse continuity of care to oncoming nurse.
[2018-07-10 06:50] LABS: BASOPHILS # (AUTO) 0.1 /CMM (0.0-0.2); BASOPHILS % (AUTO) 1.9 % (0.0-2.0); EOSINOPHILS % (AUTO) 2.9 % (0.0-6.0); HEMATOCRIT 39 % (39-51); HEMOGLOBIN 12.4 g/dL (13.5-17.5); LYMPHOCYTES # (AUTO) 0.8 /CMM (0.8-4.8); LYMPHOCYTES % (AUTO) 14.4 % (20.0-44.0); MEAN CORPUSCULAR HGB CONC 32 g/dl (31.0-36.0); MEAN CORPUSCULAR VOLUME 92 fL (80-96); MONOCYTES # (AUTO) 0.6 /CMM (0.1-1.30); MONOCYTES % (AUTO) 9.5 % (2.0-12.0); NEUTROPHILS # (AUTO) 4.2 /CMM (1.8-8.9); NEUTROPHILS % (AUTO) 71.3 % (43.0-81.0); PLATELET COUNT (AUTO) 95 /CMM (150-450); RED BLOOD CELL COUNT(AUTO) 4.27 MIL/uL (4.5-6.0); WHITE BLOOD COUNT (AUTO) 5.8 K/uL (4.3-11.0)
[2018-07-10 06:52] LABS: CALCIUM, SERUM 8.5 mg/dL (8.5-10.1); CREATININE 0.8 mg/dL (0.6-1.3); POTASSIUM 3.6 mmol/L (3.5-5.1)
--- NOTE | 2018-07-10 07:30 | NUR ---
TD RN AM NOTES, PT IN [facility] BED, AOX3, ON 6L O2 VIA NC, NO SOB, NO DISTRESS, SR HR 85 ON MONITOR, DENIES CHEST PAIN/DISCOMFORT, ORLY MIDLINE, FLUSHES WELL, SITE CLEAR, STACK CATH DRAINING TO GRAVITY.ADEQUATE AMOUNT. CCHO DIET 2 GM SODIUM DIET, CONTACT ISOLATION OBSERVED. SAFETY MEASURES IN PLACE, CALL IGHT WITHIN REACH. WILL TURN AND REPOSITIONE Q 2HOURS. WILL CONT TO MONITOR. CENTRAL SUPPLY NOTIFIED AND WILL CALL [facility] [employer] TO FIX MATTRESS.
[2018-07-10] MEDS: ACETYLCYSTEINE 10% SOLN 400 MG/4 ML VIAL NEB SCH ×3 (07:50→23:03)
[2018-07-10] MEDS: BLOOD SUGAR DIAGNOSTIC 1 EACH STRIP IN SCH ×4 (08:25→22:27)
[2018-07-10 08:51] LABS: BAND % (MANUAL) 1 % (0.0-5.0); EOSINOPHILS % (MANUAL) 1 % (0-4); LYMPHOCYTES % (MANUAL) 15 % (16-48); MONOCYTES % (MANUAL) 4 % (0-11.0); NEUTROPHILS % (MANUAL) 79 (42-76)
[2018-07-10] MEDS: CLOTRIMAZOLE 1% 15 GM TUBE TP SCH ×2 (09:22→18:01)
[2018-07-10] MEDS: DOCUSATE SODIUM 100 MG CAPSULE PO SCH ×2 (09:22→17:49)
[2018-07-10] MEDS: GABAPENTIN 300 MG CAPSULE PO SCH ×3 (09:22→17:49)
[2018-07-10] MEDS: DULOXETINE HCL 30 MG CAPSULE.DR PO SCH (09:22)
[2018-07-10] MEDS: PREGABALIN 100 MG CAPSULE PO SCH (09:23)
[2018-07-10] MEDS: FOLIC ACID 1 MG TABLET PO SCH (09:23)
[2018-07-10] MEDS: LACTOBACILLUS RHAMNOSUS GG 1 EACH CAP.SPRINK PO SCH ×2 (09:23→17:48)
[2018-07-10] MEDS: TOPIRAMATE 100 MG TABLET PO SCH ×2 (09:23→17:49)
[2018-07-10] MEDS: METFORMIN 500 MG TABLET PO SCH ×2 (09:23→17:49)
--- NOTE | 2018-07-10 09:30 | NUR ---
[facility] RN NOTES 0829. ACCUCHECK. BS 103 MG/DL. NO INSULIN COVERAGE AT THIS TIME
[2018-07-10] MEDS: Z GUARD REMEDY 2 OZ OINT TP SCH (09:35)
[2018-07-10] MEDS: GLUCERNA SHAKE 237 ML CAN PO SCH (09:35)
[2018-07-10] MEDS: PROPRANOLOL LA 60 MG CAP.SA.24H PO SCH (11:37)
--- NOTE | 2018-07-10 11:37 | NUR ---
[facility] RN NOTES INDERAL TAB NOT GIVEN SCHEDULED. MEDICATION JUST ARRIVED.
--- NOTE | 2018-07-10 11:50 | NUR ---
[facility] RN NOTES ACCUCHECK. BS 90 MG/DL. NO INSULIN COVERAGE AT THIS TIME
[2018-07-10 17:07] LABS: ABG BASE EXCESS 10.4 mmol/L; ABG OXYGEN SATURATION 89.9 % (92.0-98.5); ABG PCO2 63.3 mmHg (35.0-45.0); ABG PH 7.393 (7.350-7.450); ABG PO2 59.9 mmHg (75.0-100.0); AaDO2 145.2 mmHg; COHb 1.7 % (0.5-1.5); MetHb 0.3 % (0.0-1.5); O2Hb 88.1 % (94.0-97.0); SITE, ABG Left Radial; VENT MODE, BG NASAL CANNULA
--- NOTE | 2018-07-10 17:49 | NUR ---
[facility] RN NOTES ACCUCHECK. BS 91 MG/DL. NO INSULIN COVERAGE AT THIS TIME
--- NOTE | 2018-07-10 18:40 | NUR ---
[facility] RN CLOSING NOTES ALL NEEDS MET. PRESCRIBED WOUND CARE AND PM CARE DONE. TURNED AND REPOSITIONED Q 2 HOURS. RESTING COMFORTABLY. NOT IN ANY DISTRESS. STACK IN PLACE WITH 475 ML OUTPUT. NO OTHER SIGNIFICANT CHANGE IN CONDITION. WILL ENDORSE TO NEXT SHIFT FOR RHIANNA.
--- NOTE | 2018-07-10 19:25 | NUR ---
RN OPENING NOTES, PATIENT IN BED, AWAKE A/O X3, ON 6L O2 VIA NC, NO SOB/ACUTE DISTRESS NOTED AT THIS TIME, DISTRESS, ON ASSISTANT PROFESSOR SR HR 70S AT THIS TIME, DENIES C PAIN/DISCOMFORT, ORLY MIDLINE, PATENT AND INTACT S/L, STACK CATH DRAINING WELL TO GRAVITY, PATENCY INTACT, ON CONTACT ISOLATION, ALL NEEDS PROVIDED, CALL LIGHT WITHIN REACH, WELL REPOSITIONED AT THIS TIME, WILL CONTINUE TO MONITOR CLOSELY.
[2018-07-10] MEDS: TAMSULOSIN 0.4 MG CAP.SR.24H PO SCH (21:35)
--- NOTE | 2018-07-10 22:00 | NUR ---
RN NOTES, PATIENT ON BIPAP AT THIS TIME, NO SOB/ACUTE DISTRESS NOTED, TOLERATED WELL, WILL CONTINUE TO MONITOR CLOSELY.
--- NOTE | 2018-07-10 22:06 | NUR ---
PT PLACED ON V60 AVAPS MODE. WILL CONTINUE TO MONITOR. RN NOTIFIED.
[2018-07-10] MEDS: INSULIN REGULAR, HUMAN 100 UNIT/ML 3 ML VIAL SQ PRN (22:40)
[2018-07-11] VITALS: BP 94/47
[2018-07-11] MEDS: IPRATROPIUM NEB FS 0.5 MG/2.5 ML AMPUL.NEB NEB SCH ×4 (03:09→15:25)
[2018-07-11] MEDS: ALBUTEROL FS 2.5 MG/0.5 ML VIAL.NEB NEB SCH ×4 (03:09→15:25)
[2018-07-11 04:00] VITALS: BP 102/51
--- NOTE | 2018-07-11 05:39 | NUR ---
PT TAKEN OFF BIPAP AVAPS. PLACED ON 6L NC.
--- NOTE | 2018-07-11 07:00 | NUR ---
RN AM SHIFT NOTE PATIENT IN BED ALERT AND ORIENTED X3. SAFETY MEASURES IN PLACE BED IN LOW POSITION CALL LIGHT IN PLACE. PATIENT IN COORPERATIVE IN CARE. VERY LARGE X4 PEOPLE TO ASSIST IN REPOSITIONING. ISOLATION MEASURE IN PLACE, IV PATENT AND INTACT, STACK DRAINING WELL , BLOOD SUGAR WNL, VITALS WNL. CONTINUE TO MONITOR.
--- NOTE | 2018-07-11 07:00 | NUR ---
RN NOTES, PATIENT IN BED, AWAKE A/O X3, ON 6L O2 VIA NC, NO SOB/ACUTE DISTRESS NOTED AT THIS TIME, DISTRESS, ON CREATIVE SERVICES MANAGER SR HR 70S AT THIS TIME, DENIES C PAIN/DISCOMFORT, ORLY MIDLINE, PATENT AND INTACT S/L, STACK CATH DRAINING WELL TO GRAVITY, PATENCY INTACT, ON CONTACT ISOLATION, ALL NEEDS PROVIDED, CALL LIGHT WITHIN REACH, DRY AND CLEAN, NO SIGNIFICANT CHANGE IN CONDITION DURING THE NIGHT ENDORSE CONTINUITY OF CARE TO ONCOMING NURSE.
[2018-07-11] MEDS: ACETYLCYSTEINE 10% SOLN 400 MG/4 ML VIAL NEB SCH ×2 (07:31→15:25)
[2018-07-11] MEDS: BLOOD SUGAR DIAGNOSTIC 1 EACH STRIP IN SCH ×3 (07:53→17:22)
[2018-07-11] MEDS: Z GUARD REMEDY 2 OZ OINT TP SCH (07:55)
[2018-07-11] MEDS: CLOTRIMAZOLE 1% 15 GM TUBE TP SCH ×2 (07:55→17:12)
[2018-07-11 08:00] VITALS: BP 115/69
[2018-07-11] MEDS: LACTOBACILLUS RHAMNOSUS GG 1 EACH CAP.SPRINK PO SCH ×2 (08:40→17:22)
[2018-07-11] MEDS: METFORMIN 500 MG TABLET PO SCH ×2 (08:40→17:22)
[2018-07-11] MEDS: PREGABALIN 100 MG CAPSULE PO SCH (08:40)
[2018-07-11] MEDS: GABAPENTIN 300 MG CAPSULE PO SCH ×3 (08:40→17:22)
[2018-07-11] MEDS: DULOXETINE HCL 30 MG CAPSULE.DR PO SCH (08:41)
[2018-07-11] MEDS: FOLIC ACID 1 MG TABLET PO SCH (08:41)
[2018-07-11] MEDS: GLUCERNA SHAKE 237 ML CAN PO SCH (08:41)
[2018-07-11] MEDS: DOCUSATE SODIUM 100 MG CAPSULE PO SCH ×2 (08:41→17:22)
[2018-07-11] MEDS: TOPIRAMATE 100 MG TABLET PO SCH ×2 (08:44→17:22)
[2018-07-11] MEDS: PROPRANOLOL LA 60 MG CAP.SA.24H PO SCH (08:44)
[2018-07-11 12:00] VITALS: BP_SYST 101; BP_SYST 115; BP_DIAS 51; BP_DIAS 69
[2018-07-11] MEDS ORDERED: LACT1CAP72 PO (14:03)
[2018-07-11] MEDS ORDERED: ACET1OOV6 NEB (14:03)
[2018-07-11] MEDS ORDERED: CLOT15CR35 TP (14:03)
[2018-07-11] MEDS ORDERED: ALBU2.5V13 NEB (14:03)
[2018-07-11] MEDS ORDERED: IPRA0.2S9 NEB (14:03)
[2018-07-11] MEDS ORDERED: NUT.237L45 PO (14:03)
--- NOTE | 2018-07-11 14:59 | NUR ---
SEQUENCING MACHINE OPERATOR NOTE PATIENT OK FOR DISCHARGE. PATIENT REFUSED DOCUMENTATION AND WOUND TREATMENT PICTURES PRIOR TO BEING DISCHARGED. INFORMED CHARGE NURSE AND IMPORTANCE OF PICTURE MULTIPLE TIMES. PATIENT REFUSED. AWAITING TRANSPORT TO BOILER MECHANIC THE PATIENT. CALLED FACILITY TO UPDATE THEM ON PATIETN CONDITION.
[2018-07-11 16:00] VITALS: BP_SYST 114; BP_SYST 123; BP_DIAS 66; BP_DIAS 72
--- NOTE | 2018-07-11 18:47 | NUR ---
GLASS GLAZIER NOTE PATIENT IN BED, READY FOR TRANSORT. MIDLINE DISCONTINUED, CATHETER DISCONTINUED, PATIENT ALERT AND ORIENTED, REFUSED PICSTURES OF WOUNDS UPON DISCHARGE. VITALS STABLE WNL. NO BOUTS OF HYPOGLYCEMIA THIS SHIFT. ANDRES SIGNED BELONGINGS LIST. [facility] [employer] TR[employer] COMPANY AWARE OF PATIENTS CONDITION AT TIME OF DISCHARGE.
== END 2018-07-11 18:50 | DRG 637 ==
LOC: ER 19:05 → TELE 22:37 → MED 07-01 09:43 → ICU 07-03 01:04 → TELE-TD 07-09 17:50 → MEDSG1 07-11 15:16
PROVIDERS: ADMIT Family Medicine; ATTEND Registered Nurse
PROC: 5A09557 Assistance with Respiratory Ventilation, Greater than 96 Consecutive Hours, Continuous Positive Airway Pressure (ICD-10-PCS; principal; 2018-07-03)
DX: E11.649 Type 2 diabetes mellitus with hypoglycemia without coma (principal); J96.21 Acute and chronic respiratory failure with hypoxia; J18.9 Pneumonia, unspecified organism; J96.22 Acute and chronic respiratory failure with hypercapnia; E66.2 Morbid (severe) obesity with alveolar hypoventilation; I50.32 Chronic diastolic (congestive) heart failure; J98.11 Atelectasis; Z68.44 Body mass index [BMI] 60.0-69.9, adult; I42.9 Cardiomyopathy, unspecified; N17.0 Acute kidney failure with tubular necrosis; Z79.4 Long term (current) use of insulin; I11.0 Hypertensive heart disease with heart failure; M06.9 Rheumatoid arthritis, unspecified; Z79.84 Long term (current) use of oral hypoglycemic drugs; Z79.899 Other long term (current) drug therapy; J44.9 Chronic obstructive pulmonary disease, unspecified; Z91.14 Patient's other noncompliance with medication regimen; Z87.891 Personal history of nicotine dependence; I48.91 Unspecified atrial fibrillation; E83.42 Hypomagnesemia; D47.3 Essential (hemorrhagic) thrombocythemia; R31.9 Hematuria, unspecified
CPT/HCPCS: 36415; 36569; 36600; 71045-TC; 80048-TC; 80061-TC; 80202-TC; 81000-TC; 82803-TC; 82962-TC; 83735-TC; 83880; 84100-TC; 85025-TC; 87081-TC; 93307-TC; 94660; 94667-TC; 94760-TC; 94799-TC; 97110-TC; 97116-TC; 97530-TC; A4216; A6253; A6403; G0378; J0692; J1120; J1160; J1815; J1940; J3370; J3475; J3490; J7030; J7042; J7050; J7060

== ENCOUNTER 2018-08-14 19:07 | Inpatient (IN) | payer MEDICARE, OTHER ==
[~2018-08-14] VITALS: Ht 160 cm; Wt 195.5 kg
[~2018-08-14 19:07] MED LIST changes: +ACET1OOV6 NEB; +ALBU2.5V13 NEB; +CLOT15CR35 TP; +IPRA0.2S9 NEB; +LACT1CAP72 PO; +NUT.237L45 PO
[2018-08-14 19:44] LABS: BASOPHILS # (AUTO) 0.1 /CMM (0.0-0.2); BASOPHILS % (AUTO) 0.8 % (0.0-2.0); EOSINOPHILS % (AUTO) 1.5 % (0.0-6.0); HEMATOCRIT 39 % (39-51); HEMOGLOBIN 12.1 g/dL (13.5-17.5); LYMPHOCYTES % (AUTO) 11.2 % (20.0-44.0); MEAN CORPUSCULAR HGB CONC 31 g/dl (31.0-36.0); MEAN CORPUSCULAR VOLUME 93 fL (80-96); MONOCYTES # (AUTO) 0.6 /CMM (0.1-1.30); MONOCYTES % (AUTO) 6.5 % (2.0-12.0); PLATELET COUNT (AUTO) 118 /CMM (150-450); RED BLOOD CELL COUNT(AUTO) 4.16 MIL/uL (4.5-6.0); WHITE BLOOD COUNT (AUTO) 8.7 K/uL (4.3-11.0)
[2018-08-14 19:56] LABS: CALCIUM, SERUM 8.2 mg/dL (8.5-10.1); CREATININE 0.9 mg/dL (0.6-1.3)
--- NOTE | 2018-08-14 20:00 | NUR ---
PT RECEIVED FROM VEGA DALY FOR RHIANNA. U/S AT BEDSIDE.
--- NOTE | 2018-08-14 20:03 | NUR ---
BIB RA FROM [facility]. AAOX4. BREATHING FAST AND SHALLOW, ON FACE MASK @ 7 LMP 02 SAT 94%. PT TALKING IN FULL SENTENCES. NOTED PRODUCTIVE COUGH. DENIES CP. -N/V/D. TO ER BED 8. ORDERS RECEIVED.
[2018-08-14 20:08] LABS: ALBUMIN 2.4 g/dL (3.4-5.0); BILIRUBIN,DIRECT 0.2 mg/dL (0.0-0.2); BILIRUBIN,TOTAL 0.7 mg/dL (0.2-1.0); TOTAL PROTEIN, SERUM 6.9 g/dL (6.4-8.2)
--- NOTE | 2018-08-14 20:20 | NUR ---
IV LINE OBTAINED ON R AC 18G.
--- NOTE | 2018-08-14 20:43 | NUR ---
TELE 118-1; DX SOB
--- NOTE | 2018-08-14 21:07 | NUR ---
REPORT GIVEN TO CARSON. PT GOING TO 118-1.
[2018-08-14] MEDS ORDERED: ASPIRIN 325 MG TABLET ONE (21:18)
[2018-08-14] MEDS ORDERED: FUROSEMIDE 40 MG/4 ML VIAL ONE (21:18)
[2018-08-14] MEDS ORDERED: NITROGLYCERIN PACKET 1 GM PACKET ONE (21:18)
[2018-08-14] MEDS ORDERED: FUROSEMIDE 40 MG/4 ML VIAL IV ONE (21:30)
[2018-08-14] MEDS ORDERED: NITROGLYCERIN PACKET 1 GM PACKET TD ONE (21:30)
[2018-08-14] MEDS ORDERED: ASPIRIN 325 MG TABLET PO ONE (21:30)
[2018-08-14 21:57] LABS: D-DIMER 0.95 mg/L(FEU (0.17-0.50)
[2018-08-14] MEDS ORDERED: ZOLPIDEM TARTRATE 5 MG TABLET PO PRN (22:00)
[2018-08-14] MEDS ORDERED: MECLIZINE HCL 25 MG TABLET PO PRN (22:00)
[2018-08-14] MEDS ORDERED: MAGNESIUM HYDROXIDE 30 ML UDC PO PRN (22:00)
[2018-08-14] MEDS ORDERED: MAG HYDROX/AL HYDROX/SIMETH 30 ML UDC PO PRN (22:00)
[2018-08-14] MEDS ORDERED: Z GUARD REMEDY 2 OZ OINT TP PRN (22:00)
[2018-08-14] MEDS ORDERED: ONDANSETRON HCL/PF 4 MG/2 ML VIAL IVP PRN (22:00)
[2018-08-14] MEDS ORDERED: HYDROCODONE/APAP 5/325MG 1 EACH TABLET PO PRN (22:00)
[2018-08-14] MEDS ORDERED: SUMATRIPTAN SUCCINATE 100 MG TABLET PO PRN (22:00)
[2018-08-14] MEDS ORDERED: ACETAMINOPHEN 325 MG TABLET PO PRN (22:00)
--- NOTE | 2018-08-14 22:45 | NUR ---
AVIATION CONSULTANT ADMISSION NOTES, RECEIVED 57 Y.O MALE ADMITTED FROM ER VIA STRETCHER IN COMPANY OF 2 NURSES, IN STABLE CONDITION, UNDER MEDICAL CARE OF DR DYAN FLORES MD, WITH DX OF CHF EXACERBATION, H/O DM II, DIABETIC NEUROPATHY, COPD, MUSCLE WEAKNESS, RHEUMATOID ARTHRITIS, SEVERE OBESITY, HTN, DYSPHAGIA, H/O BILATERAL CATARACTS REMOVE, A/O X4 ABLE TO VERBALIZED NEEDS AND CONCERNS, BREATHING EVEN AND UNLABORED, NO S/S OF ACUTE RESPIRATORY DISTRESS AT THIS TIME, ON SIMPLE MASK AT 5LPM O2 SAT 94%, 98.1, 112/65, 80, 22, 0/10, RIGHT AC IV ACCESS PATENT AND INTACT, AFEBRILE AT THIS TIME, BED BATH GIVEN AND PATIENT TOLERATED TURING AND REPOSITION, BED LOCKED AND IN LOW POSITION, CALL LIGHT W/I REACH, WILL F/U WITH MD FOR FURTHER ORDERS, WILL CONTINUE TO MONITOR CLOSELY.
--- NOTE | 2018-08-14 22:50 | NUR ---
PT TRANSPORTED TO UNIT WITH EMT AND RN AT BEDSIDE WITH ACLS PROTOCOL. NAD NOTED DURING TRANSPORT.
[2018-08-14] MEDS: TAMSULOSIN 0.4 MG CAP.SR.24H PO SCH (23:22)
[2018-08-14] MEDS: ACETYLCYSTEINE 10% SOLN 400 MG/4 ML VIAL NEB SCH (23:30)
[2018-08-15] VITALS (25 sets, daily range): BP systolic 90–143; BP diastolic 29–90
[2018-08-15] MEDS: ALBUTEROL FS 2.5 MG/0.5 ML VIAL.NEB NEB SCH ×6 (03:01→23:55)
[2018-08-15] MEDS: IPRATROPIUM NEB FS 0.5 MG/2.5 ML AMPUL.NEB NEB SCH ×6 (03:01→23:55)
[2018-08-15 06:41] LABS: BASOPHILS % (AUTO) 0.4 % (0.0-2.0); EOSINOPHILS % (AUTO) 1.5 % (0.0-6.0); HEMATOCRIT 41 % (39-51); HEMOGLOBIN 12.6 g/dL (13.5-17.5); LYMPHOCYTES # (AUTO) 0.8 /CMM (0.8-4.8); LYMPHOCYTES % (AUTO) 9.3 % (20.0-44.0); MEAN CORPUSCULAR HGB CONC 31 g/dl (31.0-36.0); MEAN CORPUSCULAR VOLUME 94 fL (80-96); MONOCYTES # (AUTO) 0.6 /CMM (0.1-1.30); NEUTROPHILS # (AUTO) 6.8 /CMM (1.8-8.9); NEUTROPHILS % (AUTO) 81.8 % (43.0-81.0); PLATELET COUNT (AUTO) 123 /CMM (150-450); RED BLOOD CELL COUNT(AUTO) 4.36 MIL/uL (4.5-6.0); WHITE BLOOD COUNT (AUTO) 8.3 K/uL (4.3-11.0)
[2018-08-15 06:52] LABS: CALCIUM, SERUM 8.1 mg/dL (8.5-10.1); CREATININE 0.8 mg/dL (0.6-1.3); PHOSPHORUS 4.9 mg/dL (2.5-4.9); POTASSIUM 4.2 mmol/L (3.5-5.1)
--- NOTE | 2018-08-15 06:52 | NUR ---
PRIVATE BRANCH EXCHANGE INSTALLER NOTES, PATIENT SLEEPING AT T HIS TIME, REMAINS IN STABLE WITH STABLE VS, ON SIMPLE MASK AT 10LPM WITH SATURATION LEVEL 92-94% BREATHING EVEN AND UNLABORED, NO S/S OF SOB/ ACUTE RESPIRATORY DISTRESS AT THIS TIME, RIGHT AC IV ACCESS PATENT AND INTACT, BED LOCKED AND IN LOW POSITION, CALL LIGHT W/I REACH, WILL ENDORSE CONTINUITY OF CARE TO ONCOMING NURSE.
[2018-08-15] MEDS: ACETYLCYSTEINE 10% SOLN 400 MG/4 ML VIAL NEB SCH ×3 (07:04→23:55)
--- NOTE | 2018-08-15 08:25 | NUR ---
PATIENT ON 10L O2 VIA SIMPLE MASK, SPO2 70%, BREATHING LABORED. ABG ORDERED. PLACED ON 15L NONBREATHER MASK, SPO2 90% WITH CONTINUED SOB. AFTER ABG RESULT, DEALERSHIP GENERAL MANAGER CALLED. ICU TRANSFER INITIATED, KENNEDY MESSINA ORDERED 30 MIN OF BIPAP AND ABG RECHECK IN 30 MIN. REPORT GIVEN TO NILS FERRARI ICU.
[2018-08-15] MEDS ORDERED: SUMATRIPTAN SUCCINATE 100 MG TABLET PO PRN (08:30)
--- NOTE | 2018-08-15 08:30 | NUR ---
CUSTOMER SERVICE RECEPTIONIST NOTE RECEIVED PATIENT FROM [facility] WITH RAPID RESPONSE.ALERT.PLACED ON BIPAP 25/5,RR 18,FIO2-60%.IV ON R AC.WILL CONTINUE TO MONITOR.TO DO REPEAT ABG IN 1 HR.
[2018-08-15 08:55] LABS: ABG BASE EXCESS 15.4 mmol/L; ABG OXYGEN SATURATION 93.9 % (92.0-98.5); ABG PCO2 132.6 mmHg (35.0-45.0); ABG PH 7.187 (7.350-7.450); AaDO2 498.4 mmHg; COHb 1.8 % (0.5-1.5); MetHb 0.3 % (0.0-1.5); O2Hb 91.9 % (94.0-97.0); SITE, ABG Right Radial; VENT MODE, BG NRB
[2018-08-15] MEDS: TOPIRAMATE 100 MG TABLET PO SCH ×2 (09:00→17:38)
[2018-08-15] MEDS: PROPRANOLOL LA 60 MG CAP.SA.24H PO SCH (09:00)
[2018-08-15] MEDS: glyBURIDE 5 MG TABLET PO SCH (09:00)
[2018-08-15] MEDS: METFORMIN 500 MG TABLET PO SCH ×2 (09:00→17:38)
[2018-08-15] MEDS: LACTOBACILLUS RHAMNOSUS GG 1 EACH CAP.SPRINK PO SCH ×2 (09:00→17:38)
[2018-08-15] MEDS: PREGABALIN 100 MG CAPSULE PO SCH (09:00)
[2018-08-15] MEDS: NATEGLINIDE 60 MG TABLET PO SCH ×3 (09:00→17:38)
[2018-08-15] MEDS: GLUCERNA SHAKE 237 ML CAN PO SCH (09:00)
[2018-08-15] MEDS: POTASSIUM CHLORIDE 10 MEQ TABLET.SA PO SCH ×2 (09:00→17:38)
[2018-08-15] MEDS: DULOXETINE HCL 30 MG CAPSULE.DR PO SCH (09:00)
[2018-08-15] MEDS ORDERED: clonazePAM 1 MG TABLET PO SCH (09:00)
[2018-08-15] MEDS: FOLIC ACID 1 MG TABLET PO SCH (09:00)
[2018-08-15] MEDS: GABAPENTIN 300 MG CAPSULE PO SCH ×3 (09:00→17:38)
[2018-08-15] MEDS: DOCUSATE SODIUM 100 MG CAPSULE PO SCH ×2 (09:00→17:38)
[2018-08-15 10:05] LABS: ABG PCO2 82.7 mmHg (35.0-45.0); ABG PH 7.288 (7.350-7.450); ABG PO2 102.2 mmHg (75.0-100.0); AaDO2 234.6 mmHg; COHb 1.5 % (0.5-1.5); MetHb 0.4 % (0.0-1.5); O2Hb 95.2 % (94.0-97.0); SITE, ABG Left Radial; VENT MODE, BG BIPAP 25/5
[2018-08-15] MEDS: FUROSEMIDE 40 MG/4 ML VIAL IV SCH (10:40)
--- NOTE | 2018-08-15 10:57 | NUR ---
PT PLACED ON BIPAP IPAP25 EPAP 5, RR 18, FIO2 60%. PT AWAKE AND ALERT, TOLERATES BIPAP SETTING. ALARM WORKING AND AUDIBLE. RED OUTLET PLUGGED IN, AMBU BAG AT BEDSIDE.
[2018-08-15] MEDS: ENOXAPARIN SODIUM 40 MG/0.4 ML DISP.SYRIN SQ SCH (11:56)
[2018-08-15] MEDS: LEVOFLOXACIN 500 MG /D5W 100ML 100 ML IV SCH (12:32)
--- NOTE | 2018-08-15 13:30 | NUR ---
CARTON COUNTER FEEDER NOTE PATIENT RESPONSIVE TO PAINFUL STIMULI,NOT ALERT.STAT ABG DONE.RESULT RELAYED TO .GOT NEW ORDER FOR BIPAP SETTINGS.AND ABG IN 1HR.WILL CONTINUE TO MONITOR.
--- NOTE | 2018-08-15 13:38 | NUR ---
RN NOTES NOTED PT MORE LETHARGIC, RESPONDS TO PAIN. ABG RESULT FROM [address] OSBORNE. ORDERED CHANGE BIPAP SETTING TO 30/5 THEN ABG AT 1430. WILL MONITOR.
--- NOTE | 2018-08-15 13:48 | NUR ---
PASSENGER BRAKEMAN NOTE SEEN BY ,UPDATED ABOUT PATIENT CONDITION,REQUESTED TO F/U WITH FOR NEW ABG RESULT.
[2018-08-15 14:49] LABS: ABG BASE EXCESS 15.6 mmol/L; ABG OXYGEN SATURATION 95.7 % (92.0-98.5); ABG PCO2 87.9 mmHg (35.0-45.0); ABG PH 7.331 (7.350-7.450); ABG PO2 83.6 mmHg (75.0-100.0); COHb 1.5 % (0.5-1.5); MetHb 0.3 % (0.0-1.5); SITE, ABG Right Radial; VENT MODE, BG ST 30/5 RR18 50%
[2018-08-15 14:57] LABS: ABG BASE EXCESS 14.9 mmol/L; ABG PCO2 99.1 mmHg (35.0-45.0); ABG PH 7.283 (7.350-7.450); ABG PO2 103.6 mmHg (75.0-100.0); AaDO2 215.2 mmHg; COHb 1.5 % (0.5-1.5); MetHb 0.3 % (0.0-1.5); O2Hb 95.3 % (94.0-97.0); VENT MODE, BG ST 25/5 60% RR18
--- NOTE | 2018-08-15 15:00 | NUR ---
NEIGHBORHOOD AIDE NOTE PATIENT IS AXOX4.ON BIPAP .REPEAT ABG .RELAYED TO .WILL CONTINUE TO MONITOR.GOT NEW ORDER FOR ACCU CHECK AND LANTUS INSULIN FROM .CLARIFIED DOSE WITH PER PHARMACY REQUEST.OK TO GIVE LANTUS ONLY PATIENT HAS >50% PO INTAKE.
[2018-08-15] MEDS ORDERED: DEXTROSE 50%-WATER 50 ML DISP.SYRIN IV PRN (15:30)
[2018-08-15] MEDS ORDERED: INSULIN REGULAR, HUMAN 100 UNIT/ML 3 ML VIAL SQ PRN ×2 (15:30→18:30)
[2018-08-15] MEDS: CLOTRIMAZOLE 1% 15 GM TUBE TP SCH (17:00)
[2018-08-15] MEDS ORDERED: BLOOD SUGAR DIAGNOSTIC 1 EACH STRIP IN SCH (18:00)
--- NOTE | 2018-08-15 19:24 | NUR ---
TRICK RODEO RIDER NOTE PATIENT NON COMPLAINT ABOUT BIPAP.EXPLAINED RISK AND BENEFIT STILL REFUSING.PLACED ON NASAL CANULA SATURATING 86-91%.ENDORSED TO PM NURSE FOR RHIANNA.
--- NOTE | 2018-08-15 19:30 | NUR ---
POWDER WORKER NOTES RECEIVED PATIENT IN BED, AWAKE, A/O X4, ABLE TO VERBALIZE NEEDS. BEDSIDE MONITOR SHOWS SINUS RHYTHM WITH BBB, HR 90 BPM AT THIS TIME. PATIENT REPOSITIONED FOR COMFORT, SPO2 91% AFTER REPOSITIONING. ON O2 VIA NC @ 3LPM, TOLERATING WELL, NO S/S OF RESPIRATORY DISTRESS. PATIENT STILL REFUSING BIPAP. EXPLAINED RISKS AND CONSEQUENCES OF BIPAP REFUSAL, PATIENT VERBALIZES UNDERSTANDING, STILL STRONGLY REFUSING. PATIENT ASKING FOR BIPAP TO BE PUSHED BACK TO 9PM OR 10PM. WILL COORDINATE WITH RT. STACK CATHETER PATENT AND INTACT, DRAINING YELLOW URINE VIA GRAVITY. CATHETER SECURED LEG. CALL LIGHT LEFT WITHIN EASY REACH, IN LOWEST AND LOCKED POSITION
--- NOTE | 2018-08-15 19:55 | NUR ---
HOSPICE TEAM LEAD NOTES CARE ENDORSED TO NURSE BYRD
--- NOTE | 2018-08-15 19:55 | NUR ---
RN NOTES, RECEIVED PATIENT FROM ABE RN FOR CONTINUATION OF CARE, PATIENT IN BED AWAKE A/O, ON NC WITH O2 SATURATION FLUCTUATING 88-91% VIA NC 3LMP AT THIS TIME, PATIENT WITH ORDER FOR BIPAP AND PER REPORT BEING REFUSING BIPAP, SPOKE WITH PATIENT AND INFORMED HIM THE IMPORTANCE OF BIPAP USE, INCLUDING RISKS AND BENEFITS, PATIENT ASKING FOR NORCO AND SLEEPING PILL, INFORMED PATIENT THAT HE DOESN'T HAVE AN ORDER FOR NORCO AND SLEEPING PILL WAS DC, INCLUDING KLONOPIN, DUE TO HEALTH CONDITION AND THE RESPIRATORY ISSUES THAT HE HAVING, PATIENT FIRST COMPLAINED AND THEN VERBALIZED UNDERSTANDING, ASKING PATIENT A WHAT TIME HE WANT TO BE IN BIPAP AND HE STATED AT 2200, WILL CONTINUE TO MONITOR CLOSELY.
[2018-08-15] MEDS: TAMSULOSIN 0.4 MG CAP.SR.24H PO SCH (21:02)
[2018-08-15] MEDS: INSULIN GLARGINE, 100 UNIT/ML CARTRIDGE SQ SCH (21:13)
[2018-08-15] MEDS: BLOOD SUGAR DIAGNOSTIC 1 EACH STRIP IN SCH (21:16)
--- NOTE | 2018-08-15 22:10 | NUR ---
RN NOTES, PATIENT PLACED ON BIPAP BR RT AT THIS TIME, WILL CONTINUE TO MONITOR CLOSELY.
[2018-08-16] VITALS (29 sets, daily range): BP systolic 92–160; BP diastolic 48–78
[2018-08-16] MEDS: IPRATROPIUM NEB FS 0.5 MG/2.5 ML AMPUL.NEB NEB SCH ×6 (03:32→23:48)
[2018-08-16] MEDS: ALBUTEROL FS 2.5 MG/0.5 ML VIAL.NEB NEB SCH ×6 (03:33→23:48)
--- NOTE | 2018-08-16 06:54 | NUR ---
MORTICIAN INVESTIGATOR NOTES, PATIENT ASLEEP AT HIS TIME, BU EASILY AROUSABLE TO TACTILE STIMULI, A/O X4 ABLE TO VERBALIZED NEEDS AND CONCERNS, REMAINS IN STABLE WITH STABLE VS, CONTINUE ON BIPAP AND BEING ON BIPAP ALL NIGHT, O2 SAT LEVEL FLUCTUATING 89-99% BREATHING EVEN AND UNLABORED, NO S/S OF SOB/ ACUTE RESPIRATORY DISTRESS AT THIS TIME, RIGHT AC IV ACCESS PATENT AND INTACT, BED LOCKED AND IN LOW POSITION, DRY AND CLEAN AND WELL REPOSITIONED, CALL LIGHT W/I REACH, BILATERAL 1/2 S/R OF BED UP, WILL ENDORSE CONTINUITY OF CARE TO ONCOMING NURSE.
[2018-08-16] MEDS: BLOOD SUGAR DIAGNOSTIC 1 EACH STRIP IN SCH ×4 (07:40→21:08)
[2018-08-16] MEDS: ACETYLCYSTEINE 10% SOLN 400 MG/4 ML VIAL NEB SCH ×3 (08:09→23:48)
[2018-08-16] MEDS: ENOXAPARIN SODIUM 40 MG/0.4 ML DISP.SYRIN SQ SCH (08:38)
[2018-08-16] MEDS: POTASSIUM CHLORIDE 10 MEQ TABLET.SA PO SCH ×2 (08:39→16:36)
[2018-08-16] MEDS: FUROSEMIDE 40 MG/4 ML VIAL IV SCH (08:39)
[2018-08-16] MEDS: LACTOBACILLUS RHAMNOSUS GG 1 EACH CAP.SPRINK PO SCH ×2 (08:39→16:35)
[2018-08-16] MEDS: PROPRANOLOL LA 60 MG CAP.SA.24H PO SCH (08:40)
[2018-08-16] MEDS: SUMATRIPTAN SUCCINATE 25 MG TABLET PO PRN (08:40)
[2018-08-16] MEDS: NATEGLINIDE 60 MG TABLET PO SCH ×3 (08:41→16:37)
[2018-08-16] MEDS: GABAPENTIN 300 MG CAPSULE PO SCH ×3 (08:42→16:35)
[2018-08-16] MEDS: METFORMIN 500 MG TABLET PO SCH ×2 (08:42→16:36)
[2018-08-16] MEDS: DULOXETINE HCL 30 MG CAPSULE.DR PO SCH (08:42)
[2018-08-16] MEDS: PREGABALIN 100 MG CAPSULE PO SCH (08:43)
[2018-08-16] MEDS: glyBURIDE 5 MG TABLET PO SCH (08:43)
[2018-08-16] MEDS: DOCUSATE SODIUM 100 MG CAPSULE PO SCH ×2 (08:43→16:34)
[2018-08-16] MEDS: GLUCERNA SHAKE 237 ML CAN PO SCH (08:45)
[2018-08-16] MEDS: FOLIC ACID 1 MG TABLET PO SCH (08:45)
[2018-08-16] MEDS: TOPIRAMATE 100 MG TABLET PO SCH ×2 (08:45→16:36)
[2018-08-16 09:03] LABS: ABG OXYGEN SATURATION 90.1 % (92.0-98.5); ABG PCO2 66.3 mmHg (35.0-45.0); ABG PH 7.393 (7.350-7.450); ABG PO2 57.5 mmHg (75.0-100.0); AaDO2 93.1 mmHg; COHb 1.8 % (0.5-1.5); MetHb 0.4 % (0.0-1.5); O2Hb 88.1 % (94.0-97.0); SITE, ABG Right Radial; VENT MODE, BG Nasal Cannula
[2018-08-16] MEDS: INSULIN GLARGINE, 100 UNIT/ML CARTRIDGE SQ SCH ×4 (09:25→21:00)
[2018-08-16] MEDS: CLOTRIMAZOLE 1% 15 GM TUBE TP SCH ×2 (09:37→16:37)
[2018-08-16] MEDS: LEVOFLOXACIN 500 MG /D5W 100ML 100 ML IV SCH (10:34)
[2018-08-16] MEDS: MORPHINE SULFATE INJ 2 MG/ML DISP.SYRIN IV PRN ×5 (10:36→23:59)
--- NOTE | 2018-08-16 19:45 | NUR ---
RN NOTE: RECEIVED PT ON BED ALERT AND ORIENTED X3. ABLE TO MAKE NEEDS KNOWN. NO APPARENT DISTRESS NOTED. NO COMPLAINTS OF PAIN OR DISCOMFORT AT THIS TIME. ON 3LPM NASAL CANNULA, NO SOB NOTED. SATURATING WELL. SINUS RHYTHM ON TELE MONITOR HR 64BPM. IV ON LEFT FOREARM #20 INTACT AND FLUSHING WELL. NO SIGNS/SYMPTOMS OF INFILTRATION NOTED. STACK CATH INTACT AND PATENT, DRAINING WELL. CALL LIGHT PLACED WITHIN REACH. KEPT CLEAN, DRY AND COMFORTABLE. SAFETY AND FALL PRECAUTIONS OBSERVED AND MAINTAINED. WILL CONTINUE TO MONITOR PT.
[2018-08-16] MEDS: TAMSULOSIN 0.4 MG CAP.SR.24H PO SCH (21:13)
--- NOTE | 2018-08-16 21:24 | NUR ---
RN NOTE: LANTUS DUE AT 2100 NOT GIVEN, BS 81MG/DL. SNACKS GIVEN TO PT. WILL CONTINUE TO MONITOR.
[2018-08-16] MEDS ORDERED: MISCELLANEOUS MED 1 EA EA XX ONE (21:30)
[2018-08-17] VITALS (22 sets, daily range): BP systolic 98–135; BP diastolic 43–80
[2018-08-17] MEDS: ALBUTEROL FS 2.5 MG/0.5 ML VIAL.NEB NEB SCH ×6 (04:11→23:07)
[2018-08-17] MEDS: IPRATROPIUM NEB FS 0.5 MG/2.5 ML AMPUL.NEB NEB SCH ×6 (04:11→23:07)
[2018-08-17] MEDS: MORPHINE SULFATE INJ 2 MG/ML DISP.SYRIN IV PRN ×4 (05:04→16:27)
--- NOTE | 2018-08-17 06:52 | NUR ---
RN NOTE: NO CHANGES NOTED THROUGHOUT THE SHIFT. NO APPARENT DISTRESS NOTED. PT COMPLAINED OF GENERALIZED BODY PAIN, MORPHINE PRN GIVEN ORDERED. ON 3LPM NASAL CANNULA, NO SOB NOTED. ABLE TO TOLERATE WELL. NO EPISODES OF DESATURATION NOTED. IV ON LEFT FOREARM #20 INTACT AND PATENT, FLUSHING WELL. STACK CATH INTACT AND PATENT, DRAINED 425ML OF URINE OUTPUT. CALL LIGHT PLACED WITHIN REACH. KEPT CLEAN, DRY AND COMFORTABLE. SAFETY AND FALL PRECAUTIONS OBSERVED AND MAINTAINED. WILL ENDORSE TO DAY SHIFT RN FOR CONTINUITY OF CARE.
[2018-08-17] MEDS: ACETYLCYSTEINE 10% SOLN 400 MG/4 ML VIAL NEB SCH ×3 (07:14→23:07)
--- NOTE | 2018-08-17 07:31 | NUR ---
RN NOTE: PT REQUESTED FOR SLEEPING PILL LAST NIGHT. MILLING SUPERVISOR JOVANI PHILLIPS ORDERED MELATONIN 3MG HS PRN. HOWEVER, PER PHARMACY WE DON'T HAVE MELATONIN AND THEY RECOMMENDED RESTORIL OR TRAZODONE INSTEAD. WILL ENDORSE TO DAY SHIFT RN TO FOLLOW UP WITH MD.
[2018-08-17] MEDS: BLOOD SUGAR DIAGNOSTIC 1 EACH STRIP IN SCH ×4 (07:50→21:12)
[2018-08-17] MEDS: FUROSEMIDE 40 MG/4 ML VIAL IV SCH (08:42)
[2018-08-17] MEDS: ENOXAPARIN SODIUM 40 MG/0.4 ML DISP.SYRIN SQ SCH (08:44)
[2018-08-17] MEDS: glyBURIDE 5 MG TABLET PO SCH (08:51)
[2018-08-17] MEDS: LACTOBACILLUS RHAMNOSUS GG 1 EACH CAP.SPRINK PO SCH ×2 (08:51→16:20)
[2018-08-17] MEDS: GABAPENTIN 300 MG CAPSULE PO SCH ×3 (08:51→16:19)
[2018-08-17] MEDS: PROPRANOLOL LA 60 MG CAP.SA.24H PO SCH (08:52)
[2018-08-17] MEDS: PREGABALIN 100 MG CAPSULE PO SCH (08:52)
[2018-08-17] MEDS: DULOXETINE HCL 30 MG CAPSULE.DR PO SCH (08:52)
[2018-08-17] MEDS: DOCUSATE SODIUM 100 MG CAPSULE PO SCH ×2 (08:52→16:18)
[2018-08-17] MEDS: METFORMIN 500 MG TABLET PO SCH ×2 (08:53→16:18)
[2018-08-17] MEDS: FOLIC ACID 1 MG TABLET PO SCH (08:53)
[2018-08-17] MEDS: POTASSIUM CHLORIDE 10 MEQ TABLET.SA PO SCH ×2 (08:53→16:18)
[2018-08-17] MEDS: NATEGLINIDE 60 MG TABLET PO SCH ×3 (09:02→16:26)
[2018-08-17] MEDS: SUMATRIPTAN SUCCINATE 25 MG TABLET PO PRN ×2 (09:03→16:26)
[2018-08-17] MEDS: TOPIRAMATE 100 MG TABLET PO SCH ×2 (09:04→16:36)
[2018-08-17] MEDS: CLOTRIMAZOLE 1% 15 GM TUBE TP SCH ×2 (09:04→16:36)
[2018-08-17] MEDS: GLUCERNA SHAKE 237 ML CAN PO SCH (09:04)
[2018-08-17] MEDS: INSULIN GLARGINE, 100 UNIT/ML CARTRIDGE SQ SCH ×2 (09:14→21:00)
[2018-08-17] MEDS: LEVOFLOXACIN 500 MG /D5W 100ML 100 ML IV SCH (11:50)
--- NOTE | 2018-08-17 17:14 | NUR ---
Pt alert and oriented,no acute distress noted.Bed bath given,pt complains of ble pain,medicated with 2 mg of morphine,effect pending.Pt transfered to [facility] as ordered per primary MD,report given to receiving nurse.Complete care assume by [facility] RN
--- NOTE | 2018-08-17 17:30 | NUR ---
rn note received pt from icu, in stable condotion, oquendo in place, iv in place, intact, on nc 3 l/min, tolerates well. will continue to monitor.
--- NOTE | 2018-08-17 19:45 | NUR ---
TD RN NOTE: RECEIVED PT ON BED ALERT AND ORIENTED X3. ABLE TO MAKE NEEDS KNOWN. NO APPARENT DISTRESS NOTED. NO COMPLAINTS OF PAIN OR DISCOMFORT AT THIS TIME. ON 3LPM NASAL CANNULA, NO SOB NOTED. SATURATING WELL. SINUS RHYTHM ON TELE MONITOR HR 67BPM. IV ON LEFT FOREARM #20 INTACT AND FLUSHING WELL. NO SIGNS/SYMPTOMS OF INFILTRATION NOTED. STACK CATH INTACT AND PATENT, DRAINING WELL. CALL LIGHT PLACED WITHIN REACH. KEPT CLEAN, DRY AND COMFORTABLE. SAFETY AND FALL PRECAUTIONS OBSERVED AND MAINTAINED. WILL CONTINUE TO MONITOR PT.
[2018-08-17] MEDS: MUPIROCIN OINT 2% 22 GM TUBE SCH (21:12)
[2018-08-17] MEDS: TAMSULOSIN 0.4 MG CAP.SR.24H PO SCH (21:14)
--- NOTE | 2018-08-17 21:33 | NUR ---
RN NOTE: LANTUS NOT GIVEN, BS 64MG/DL. SNACKS GIVEN TO THE PT. WILL CONTINUE TO MONITOR
[2018-08-18] VITALS (7 sets, daily range): BP systolic 96–109; BP diastolic 56–70
[2018-08-18] MEDS: ALBUTEROL FS 2.5 MG/0.5 ML VIAL.NEB NEB SCH ×6 (03:11→22:38)
[2018-08-18] MEDS: IPRATROPIUM NEB FS 0.5 MG/2.5 ML AMPUL.NEB NEB SCH ×6 (03:11→22:38)
--- NOTE | 2018-08-18 06:48 | NUR ---
TD RN NOTE: NO CHANGES NOTED THROUGHOUT THE SHIFT. NO APPARENT DISTRESS NOTED. DENIES PAIN AND DISCOMFORT AT THIS TIME. ON 3LPM NASAL CANNULA, NO SOB NOTED. ABLE TO TOLERATE WELL. NO EPISODES OF DESATURATION NOTED. IV ON LEFT FOREARM #20 INTACT AND PATENT, FLUSHING WELL. STACK CATH INTACT AND PATENT, DRAINED 350ML OF URINE OUTPUT. CALL LIGHT PLACED WITHIN REACH. KEPT CLEAN, DRY AND COMFORTABLE. SAFETY AND FALL PRECAUTIONS OBSERVED AND MAINTAINED. WILL ENDORSE TO DAY SHIFT RN FOR CONTINUITY OF CARE.
--- NOTE | 2018-08-18 07:15 | NUR ---
RN OPENING NOTES RECEIVED PATIENT IN BED, AWAKE AND ALERT. ON NC 3L. NO COMPLAINS OF ANY PAIN OR SOB AT THIS TIME. HAS GENERALIZED EDEMA. HAS STACK CATH WITH CLEAR AND YELLOW URINE. ON BEDRESET. HAS LEFT FA #20 SALINE LOCKED. BED LOCKED AND IN LOWEST POSITION. CALL LIGHT WITHIN REACH. WILL CONT TO MONITOR THROUGHOUT THE SHIFT
[2018-08-18] MEDS: ACETYLCYSTEINE 10% SOLN 400 MG/4 ML VIAL NEB SCH ×3 (07:27→22:38)
[2018-08-18] MEDS: BLOOD SUGAR DIAGNOSTIC 1 EACH STRIP IN SCH ×4 (08:18→21:42)
[2018-08-18] MEDS: FUROSEMIDE 40 MG/4 ML VIAL IV SCH (08:18)
[2018-08-18] MEDS: PREGABALIN 100 MG CAPSULE PO SCH (08:21)
[2018-08-18] MEDS: DOCUSATE SODIUM 100 MG CAPSULE PO SCH ×2 (08:21→16:06)
[2018-08-18] MEDS: POTASSIUM CHLORIDE 10 MEQ TABLET.SA PO SCH ×2 (08:21→16:06)
[2018-08-18] MEDS: TOPIRAMATE 100 MG TABLET PO SCH ×2 (08:21→16:06)
[2018-08-18] MEDS: GABAPENTIN 300 MG CAPSULE PO SCH ×3 (08:22→16:05)
[2018-08-18] MEDS: METFORMIN 500 MG TABLET PO SCH ×2 (08:22→16:06)
[2018-08-18] MEDS: glyBURIDE 5 MG TABLET PO SCH (08:22)
[2018-08-18] MEDS: DULOXETINE HCL 30 MG CAPSULE.DR PO SCH (08:22)
[2018-08-18] MEDS: NATEGLINIDE 60 MG TABLET PO SCH ×3 (08:22→16:05)
[2018-08-18] MEDS: FOLIC ACID 1 MG TABLET PO SCH (08:22)
[2018-08-18] MEDS: LACTOBACILLUS RHAMNOSUS GG 1 EACH CAP.SPRINK PO SCH ×2 (08:22→16:05)
[2018-08-18] MEDS: INSULIN GLARGINE, 100 UNIT/ML CARTRIDGE SQ SCH ×2 (08:23→21:00)
[2018-08-18] MEDS: MUPIROCIN OINT 2% 22 GM TUBE SCH ×2 (08:24→21:11)
[2018-08-18] MEDS: GLUCERNA SHAKE 237 ML CAN PO SCH (08:25)
[2018-08-18] MEDS: ENOXAPARIN SODIUM 40 MG/0.4 ML DISP.SYRIN SQ SCH (08:30)
--- NOTE | 2018-08-18 08:30 | NUR ---
RN NOTES LANTUS NON ADMINISTERED, DUE TO BLOOD SUGAR 105 MG/DL
[2018-08-18] MEDS: CLOTRIMAZOLE 1% 15 GM TUBE TP SCH ×2 (08:54→16:09)
[2018-08-18] MEDS: PROPRANOLOL LA 60 MG CAP.SA.24H PO SCH (08:55)
[2018-08-18 08:58] LABS: ABG BASE EXCESS 12.9 mmol/L; ABG OXYGEN SATURATION 94.3 % (92.0-98.5); ABG PCO2 78.2 mmHg (35.0-45.0); ABG PH 7.347 (7.350-7.450); ABG PO2 76.1 mmHg (75.0-100.0); AaDO2 60.6 mmHg; COHb 1.9 % (0.5-1.5); MetHb 0.2 % (0.0-1.5); O2Hb 92.3 % (94.0-97.0); SITE, ABG Right Radial; VENT MODE, BG N/C 3LPM
[2018-08-18] MEDS ORDERED: Dulaglutide (Trulicity) 1.5 MG SQ SCH (09:00)
[2018-08-18] MEDS: LEVOFLOXACIN 500 MG /D5W 100ML 100 ML IV SCH (11:01)
[2018-08-18] MEDS: MORPHINE SULFATE INJ 2 MG/ML DISP.SYRIN IV PRN ×2 (11:16→21:08)
--- NOTE | 2018-08-18 15:55 | NUR ---
RN NOTES LEFT FA IV SITE WAS LEAKING. DC'D IT AND INSERTED A NEW IV, LEFT HAND #22.
--- NOTE | 2018-08-18 18:44 | NUR ---
RN CLOSING NOTES PATIENT IN BED, AWAKE AND ALERT. ON 3L NC, SATING 88-90%. ON TELE MONITOR, SR. 1X BM. STACK CATH 1150 MLS OUTPUT. HAS LEFT HAND IV #22 SALINE LOCKED. PATIENT WAS COMPLAINING OF PAIN ON HIS BILATERAL LEGS, GAVE MORPHINE ONCE THIS AM. DC PLANNING PER MD. BED LOCKED AND IN LOWEST POSITION. CALL LIGHT WITHIN REACH. WILL ENDORSE TO NOC SHIFT FOR RHIANNA
--- NOTE | 2018-08-18 19:50 | NUR ---
RN INITIAL NOTES RECEIVED PATIENT IN BED, AWAKE AND ALERT. ON NC 3L. NO COMPLAINS OF ANY PAIN OR SOB AT THIS TIME. HAS GENERALIZED EDEMA. HAS STACK CATH WITH CLEAR AND YELLOW URINE. ON BED RESET. HAS LEFT FA #20 SALINE LOCKED. BED LOCKED AND IN LOWEST POSITION. CALL LIGHT WITHIN REACH. WILL CONT TO MONITOR THROUGHOUT THE SHIFT
[2018-08-18] MEDS: TAMSULOSIN 0.4 MG CAP.SR.24H PO SCH (21:08)
--- NOTE | 2018-08-18 21:40 | NUR ---
LANTUS 35 U HELD BS 66, REPEAT AFTER PROVIDE ORANGE JUICE ANS CRACKERS PT BS 88 AOX3, WILL CONT' TO MONITOR.
[2018-08-19] VITALS: BP 102/63
[2018-08-19] MEDS: ALBUTEROL FS 2.5 MG/0.5 ML VIAL.NEB NEB SCH ×4 (03:30→14:17)
[2018-08-19] MEDS: IPRATROPIUM NEB FS 0.5 MG/2.5 ML AMPUL.NEB NEB SCH ×4 (03:30→14:16)
[2018-08-19 04:00] VITALS: BP 105/65
[2018-08-19 04:39] VITALS: BP 105/65
--- NOTE | 2018-08-19 06:03 | NUR ---
RN CLOSING NOTES ENDORSED PATIENT IN BED, AWAKE AND ALERT. ON NC 3L. NO COMPLAINS OF ANY PAIN OR SOB AT THIS TIME. HAS GENERALIZED EDEMA. HAS STACK CATH WITH LALIT AND CLEAR URINE. ON BED CL WR RESET. HAS LEFT FA #20 SALINE LOCKED. BED LOCKED AND IN LOWEST POSITION. CALL LIGHT WITHIN . WILL CONT TO MONITOR THROUGHOUT THE SHIFT
--- NOTE | 2018-08-19 07:35 | NUR ---
RN NOTE ACCORDING TO ASSEMBLER METAL BUILDING RN PT REFUSED BIPAP MACHINE BE PUT ON HIM.RECEIVED PATIENT IN BED, SLEEPY, AROUSES EASILY, ON NC 3L. DENIES PAIN, NO SOB AT THIS TIME. HAS STACK CATH WITH CLEAR AND YELLOW URINE. ON BED RESET. HAS LEFT HAND #22 G SL. BED LOCKED AND IN LOWEST POSITION. CALL LIGHT WITHIN REACH. WILL CONT TO MONITOR.
[2018-08-19] MEDS: ACETYLCYSTEINE 10% SOLN 400 MG/4 ML VIAL NEB SCH ×2 (07:46→14:16)
[2018-08-19 08:00] VITALS: BP 107/75
[2018-08-19] MEDS: BLOOD SUGAR DIAGNOSTIC 1 EACH STRIP IN SCH ×2 (08:09→11:35)
[2018-08-19 08:50] LABS: ABG BASE EXCESS 8.4 mmol/L; ABG OXYGEN SATURATION 94.7 % (92.0-98.5); ABG PCO2 72.2 mmHg (35.0-45.0); ABG PH 7.328 (7.350-7.450); AaDO2 66.7 mmHg; COHb 2.1 % (0.5-1.5); MetHb 0.1 % (0.0-1.5); O2Hb 92.6 % (94.0-97.0); SITE, ABG Left Radial
[2018-08-19] MEDS: FUROSEMIDE 40 MG/4 ML VIAL IV SCH (09:00)
[2018-08-19] MEDS: INSULIN GLARGINE, 100 UNIT/ML CARTRIDGE SQ SCH (09:00)
[2018-08-19] MEDS: glyBURIDE 5 MG TABLET PO SCH (09:01)
[2018-08-19] MEDS: DULOXETINE HCL 30 MG CAPSULE.DR PO SCH (09:01)
[2018-08-19] MEDS: POTASSIUM CHLORIDE 10 MEQ TABLET.SA PO SCH (09:01)
[2018-08-19] MEDS: DOCUSATE SODIUM 100 MG CAPSULE PO SCH (09:01)
[2018-08-19] MEDS: LACTOBACILLUS RHAMNOSUS GG 1 EACH CAP.SPRINK PO SCH (09:01)
[2018-08-19] MEDS: TOPIRAMATE 100 MG TABLET PO SCH (09:01)
[2018-08-19] MEDS: PREGABALIN 100 MG CAPSULE PO SCH (09:01)
[2018-08-19] MEDS: METFORMIN 500 MG TABLET PO SCH (09:01)
[2018-08-19] MEDS: FOLIC ACID 1 MG TABLET PO SCH (09:01)
[2018-08-19] MEDS: GABAPENTIN 300 MG CAPSULE PO SCH ×2 (09:04→13:26)
[2018-08-19] MEDS: PROPRANOLOL LA 60 MG CAP.SA.24H PO SCH (09:07)
[2018-08-19] MEDS: CLOTRIMAZOLE 1% 15 GM TUBE TP SCH (09:10)
[2018-08-19] MEDS: MUPIROCIN OINT 2% 22 GM TUBE SCH (09:10)
[2018-08-19] MEDS: GLUCERNA SHAKE 237 ML CAN PO SCH (09:11)
[2018-08-19] MEDS: ENOXAPARIN SODIUM 40 MG/0.4 ML DISP.SYRIN SQ SCH (09:12)
[2018-08-19] MEDS: NATEGLINIDE 60 MG TABLET PO SCH ×2 (09:13→13:26)
--- NOTE | 2018-08-19 09:45 | NUR ---
RN NOTE LONG ACTING INSULIN HELD TODAY DUE TO PT TRENDS IN BG RUNNING LOW OR NORMAL, PT PO INTAKE ONLY 50%. PT HAD METFORMIN, GLYBURIDE AND STARLIX. WILL MONITOR BG ORDERED.
[2018-08-19] MEDS ORDERED: LEVOFLOXACIN (500MG) 500 MG TABLET PO SCH (11:00)
[2018-08-19 12:00] VITALS: BP 109/63
[2018-08-19 16:00] VITALS: BP 100/66
--- NOTE | 2018-08-19 16:17 | NUR ---
rn note pt discharged to [facility], in stable condition, exit care done, discharge instructions provided, teaching done to pt, pt verbalized understanding, iv site removed ,id band removed, Ascencio left in place. Pictures of wounds taken and placed in chart, pt left clean and dry. Report given to Faisal, nursing phosphorus processing supervisor at [phone]. belonging list signed, papers signed, belongings provided to pt. Medication reconciliation included with all paperwork and given to ambulance personnel.
[2018-09-10] MEDS ORDERED: DILT180C66 PO (13:50)
[2018-09-10] MEDS ORDERED: AMIO200T7 PO (13:50)
[2018-09-10] MEDS ORDERED: LINE600T PO (13:50)
[2018-09-10] MEDS ORDERED: RIVA10TA PO (13:50)
[2018-09-10] MEDS ORDERED: PRED20TA PO (13:50)
== END 2018-08-19 17:12 | DRG 291 ==
LOC: ER 19:09 → TELE1 21:46 → ICU 08-15 09:00 → TELE-TD 08-17 16:31
PROVIDERS: ADMIT Family Medicine; ATTEND Internal Medicine
PROC: 5A09457 Assistance with Respiratory Ventilation, 24-96 Consecutive Hours, Continuous Positive Airway Pressure (ICD-10-PCS; principal; 2018-08-15)
DX: I11.0 Hypertensive heart disease with heart failure (principal); E43 Unspecified severe protein-calorie malnutrition; J96.21 Acute and chronic respiratory failure with hypoxia; J15.9 Unspecified bacterial pneumonia; J96.22 Acute and chronic respiratory failure with hypercapnia; J44.1 Chronic obstructive pulmonary disease with (acute) exacerbation; I50.9 Heart failure, unspecified; E11.40 Type 2 diabetes mellitus with diabetic neuropathy, unspecified; J44.9 Chronic obstructive pulmonary disease, unspecified; M06.9 Rheumatoid arthritis, unspecified; Z79.4 Long term (current) use of insulin; E66.01 Morbid (severe) obesity due to excess calories; L30.4 Erythema intertrigo; Z87.891 Personal history of nicotine dependence; Z79.899 Other long term (current) drug therapy; G89.4 Chronic pain syndrome; G47.33 Obstructive sleep apnea (adult) (pediatric); R13.10 Dysphagia, unspecified; Z98.890 Other specified postprocedural states; Z79.84 Long term (current) use of oral hypoglycemic drugs; L98.9 Disorder of the skin and subcutaneous tissue, unspecified; I50.33 Acute on chronic diastolic (congestive) heart failure
CPT/HCPCS: 36415; 36600; 71045-TC; 80048-TC; 80061-TC; 80076-TC; 82803-TC; 82962-TC; 83735-TC; 83880; 84100-TC; 84484-TC; 85025-TC; 85378-TC; 85730-TC; 87081-TC; 93970-TC; 94799-TC; G0378; J1650; J1815; J1940; J1956; J2270; J7050

== ENCOUNTER 2018-09-03 13:11 | Inpatient (IN) | payer MEDICARE, OTHER ==
[2018-09-03] VITALS (13 sets, daily range): BP systolic 100–140; BP diastolic 49–67
[~2018-09-03] VITALS: Ht 177.8 cm; Wt 174.3 kg
--- NOTE | 2018-09-03 13:11 | NUR ---
PT SILVA FROM SNF FOR SOB FOR LOW O2 SAT; PT VERBALLY RESPONSIVE, PT TO BED 8, VSS, PENDING MD BLANCO
--- NOTE | 2018-09-03 13:27 | NUR ---
RT Pt brought into ER by paramedics on non rebreather and is moderately arousable. Pt was placed on BiPAP with noted settings by Dr. Davidson. BiPAP alarms are set and audible with BVM by bedside. No respiratory distress noted at this time and is stable on BiPAP. Addendum: 09/03/18 at 1519 by SANDRA COOK RT Amended: Links added.
[2018-09-03] MEDS ORDERED: FUROSEMIDE 20 MG/2 ML VIAL IV ONE (13:30)
[2018-09-03] MEDS ORDERED: ALBUTEROL FS 2.5 MG/3 ML VIAL.NEB NEB ONE (13:30)
[2018-09-03] MEDS ORDERED: AZITHROMYCIN 500 MG in IV D5W 250 ML IV ONE (13:30)
[2018-09-03] MEDS ORDERED: IPRATROPIUM NEB FS 0.5 MG/2.5 ML AMPUL.NEB NEB ONE (13:30)
[2018-09-03] MEDS ORDERED: methylPREDNISolone SOD SUCC 125 MG/2ML VIAL IV ONE (13:30)
[2018-09-03] MEDS ORDERED: IPRATROPIUM NEB FS 0.5 MG/2.5 ML AMPUL.NEB ONE (13:31)
[2018-09-03] MEDS ORDERED: ALBUTEROL FS 2.5 MG/3 ML VIAL.NEB ONE (13:31)
[2018-09-03] MEDS ORDERED: FUROSEMIDE 20 MG/2 ML VIAL ONE (13:32)
[2018-09-03] MEDS ORDERED: methylPREDNISolone SOD SUCC 125 MG/2ML VIAL ONE (13:32)
--- NOTE | 2018-09-03 13:32 | NUR ---
CALLED HOUSE SUP ABOUT [facility]MA BARIATRIC BED
[2018-09-03 13:33] LABS: BASOPHILS # (AUTO) 0.1 /CMM (0.0-0.2); MEAN CORPUSCULAR VOLUME 96 fL (80-96); MONOCYTES # (AUTO) 1.1 /CMM (0.1-1.30); NEUTROPHILS # (AUTO) 9.9 /CMM (1.8-8.9)
[2018-09-03 13:41] LABS: CALCIUM, SERUM 8.5 mg/dL (8.5-10.1); CREATININE 2.7 mg/dL (0.6-1.3); POTASSIUM 5.6 mmol/L (3.5-5.1)
[2018-09-03 13:43] LABS: ABG BASE EXCESS 3.5 mmol/L; ABG OXYGEN SATURATION 95.1 % (92.0-98.5); ABG PCO2 76.4 mmHg (35.0-45.0); ABG PH 7.257 (7.350-7.450); AaDO2 106.3 mmHg; MetHb 0.5 % (0.0-1.5); O2Hb 92.7 % (94.0-97.0); SITE, ABG Right Radial
[2018-09-03 13:55] LABS: BILIRUBIN,DIRECT 0.3 mg/dL (0.0-0.2); BILIRUBIN,TOTAL 1.4 mg/dL (0.2-1.0); TOTAL PROTEIN, SERUM 8.3 g/dL (6.4-8.2)
[2018-09-03] MEDS ORDERED: ENOX40DI SQ (13:55)
[2018-09-03] MEDS ORDERED: *INS NOVA SQ (13:55)
[2018-09-03 14:04] LABS: HEMATOCRIT 43 % (39-51); HEMOGLOBIN 13.6 g/dL (13.5-17.5); RED BLOOD CELL COUNT(AUTO) 4.49 MIL/uL (4.5-6.0); WHITE BLOOD COUNT (AUTO) 12.6 K/uL (4.3-11.0)
[2018-09-03 14:05] LABS: BASOPHILS % (AUTO) 0.9 % (0.0-2.0); EOSINOPHILS % (AUTO) 0.4 % (0.0-6.0); LYMPHOCYTES # (AUTO) 1.4 /CMM (0.8-4.8); LYMPHOCYTES % (AUTO) 11.5 % (20.0-44.0); MEAN CORPUSCULAR HGB CONC 32 g/dl (31.0-36.0); MONOCYTES % (AUTO) 8.6 % (2.0-12.0); NEUTROPHILS % (AUTO) 78.6 % (43.0-81.0)
[2018-09-03 14:06] LABS: PLATELET COUNT (AUTO) 194 /CMM (150-450)
[2018-09-03] MEDS ORDERED: PROT946L PO (14:34)
[2018-09-03] MEDS ORDERED: ACET-73 PO (14:34)
[2018-09-03] MEDS ORDERED: MAG355OR18 PO (14:34)
[2018-09-03] MEDS ORDERED: MAGN400O6 PO (14:34)
--- NOTE | 2018-09-03 14:35 | NUR ---
CALLED [facility] RN WAS PAGED
[2018-09-03 14:41] LABS: ABG BASE EXCESS 0.8 mmol/L; ABG OXYGEN SATURATION 92.6 % (92.0-98.5); ABG PCO2 69.8 mmHg (35.0-45.0); ABG PH 7.251 (7.350-7.450); ABG PO2 78.8 mmHg (75.0-100.0); AaDO2 126.1 mmHg; MetHb 0.6 % (0.0-1.5); O2Hb 90.2 % (94.0-97.0); SITE, ABG Left Radial
[2018-09-03] MEDS ORDERED: IV NS 0.9% 500 ML BAG IV ONE (15:00)
--- NOTE | 2018-09-03 15:05 | NUR ---
ICU BED 255
[2018-09-03] MEDS ORDERED: NITROGLYCERIN 0.4 MG/TAB BOTTLE SL PRN (15:30)
--- NOTE | 2018-09-03 15:37 | NUR ---
REPORT GIVEN TO PAT FERRARI FOR RHIANNA; PT WILL BE TRANSPORTED TO ICU VIA ACLS PRPTOCOL
[2018-09-03] MEDS ORDERED: DEXTROSE 50%-WATER 50 ML DISP.SYRIN IV PRN (16:00)
[2018-09-03] MEDS ORDERED: MECLIZINE HCL 25 MG TABLET PO PRN (16:00)
[2018-09-03] MEDS ORDERED: MAG HYDROX/AL HYDROX/SIMETH 30 ML UDC PO PRN (16:00)
--- NOTE | 2018-09-03 16:10 | NUR ---
PATIENT ADMITTED FROM ER WITH DIAGNOSIS OF ACUTE COPD EXACERBATION. CONNECTED TO BIPAP UPON ARRIVAL BY RT. PATIENT REMAINS ALTERED AT THIS TIME. NOT ABLE TO FOLLOW SIMPLE COMMANDS. MONITOR SHOWS SR AT 60'S. BP STABLE. ROUTINE ADMISSION ASSESSMENT DONE. PLACED FG 18 STACK CATHETER WITH CONCENTRATED YELLOW URINE RETURN, PATIENT ON DIURETICS, UNABLE TO MOVE , MORBIDLY OBESE WITH 425 LBS ADMISSION WEIGHT. NO OPEN WOUNDS NOTED. BARIATRIC BED ORDERED BY CENTRAL. IV PERIPHERAL LINE INSERTED TO LEFT HAND FOR 2ND IV ACCESS. SALINE LOCKED AT THIS TIME. APPEARS COMFORTABLE ON BIPAP WITH NO ACUTE DISTRESS NOTED AT THIS TIME.
[2018-09-03] MEDS ORDERED: FEE PK DOSING 1 MIN EA MC ONE (16:18)
[2018-09-03] MEDS: ALBUTEROL FS 2.5 MG/0.5 ML VIAL.NEB NEB SCH ×3 (16:24→23:42)
[2018-09-03] MEDS: IPRATROPIUM NEB FS 0.5 MG/2.5 ML AMPUL.NEB NEB SCH ×3 (16:24→23:42)
--- NOTE | 2018-09-03 16:30 | NUR ---
1630 Per Gosia LI, may insert FC for accurate I/O measurement. 1700 Pt remains lethargic. Held PO medications at this time d/t mental status. Gosia LI made aware w/ orders NPO including meds. 1820 Pt seen & examined by Dr. Cage. ABG reviewed by .
[2018-09-03] MEDS: POTASSIUM CHLORIDE 10 MEQ TABLET.SA PO SCH (16:56)
[2018-09-03] MEDS: DOCUSATE SODIUM 100 MG CAPSULE PO SCH (16:56)
[2018-09-03] MEDS: FUROSEMIDE 40 MG/4 ML VIAL IV SCH (16:56)
[2018-09-03] MEDS: GABAPENTIN 300 MG CAPSULE PO SCH (16:56)
[2018-09-03] MEDS: LACTOBACILLUS RHAMNOSUS GG 1 EACH CAP.SPRINK PO SCH (16:56)
[2018-09-03] MEDS: methylPREDNISolone SOD SUCC 40 MG/ML VIAL IV SCH (16:56)
[2018-09-03] MEDS: TOPIRAMATE 100 MG TABLET PO SCH (16:57)
[2018-09-03] MEDS: PROSOURCE / PROSTAT (PYXIS) 30 ML UDC PO SCH (16:57)
[2018-09-03] MEDS ORDERED: Medication Not On Formulary EA (Nateglinide 120 MG) PO SCH (17:00)
[2018-09-03] MEDS: CLOTRIMAZOLE 1% 15 GM TUBE TP SCH (17:00)
[2018-09-03] MEDS ORDERED: VANCOMYCIN 1.5 GM in IV D5W 500ml IV ONE (17:00)
[2018-09-03] MEDS ORDERED: FUROSEMIDE 40 MG/4 ML VIAL IV SCH (17:00)
[2018-09-03] MEDS: BLOOD SUGAR DIAGNOSTIC 1 EACH STRIP IN SCH ×2 (17:21→21:38)
[2018-09-03] MEDS: INSULIN REGULAR, HUMAN 100 UNIT/ML 3 ML VIAL SQ PRN (17:22)
[2018-09-03] MEDS: PIPERACILLIN /TAZOBACTAM 3.375 G in IV D5W 50 ML IV SCH (17:59)
[2018-09-03] MEDS ORDERED: Z GUARD REMEDY 4 OZ OINT TP PRN (18:00)
[2018-09-03 18:11] LABS: ABG BASE EXCESS 3.6 mmol/L; ABG OXYGEN SATURATION 89.7 % (92.0-98.5); ABG PCO2 75.7 mmHg (35.0-45.0); ABG PO2 67.3 mmHg (75.0-100.0); AaDO2 130.8 mmHg; COHb 1.9 % (0.5-1.5); MetHb 0.5 % (0.0-1.5); O2Hb 87.5 % (94.0-97.0); SITE, ABG Left Radial
[2018-09-03] MEDS ORDERED: IV NS 0.9% 250 ML IV PRN (18:30)
--- NOTE | 2018-09-03 18:40 | NUR ---
BENCH REPAIR TECHNICIAN CLOSING NOTES: Pt remains lethargic. No SOB while on BiPAP. SR w/ BBB. IV line access on R AC G18 & LFA G20 both patent & intact, no s/sx of infection/infiltration noted. FC draining to BSB w/ herbert UOP. Safety precaution kept in place at all times w/ bed in lowest & locked pos. Call light placed w/in reach. Per Dr. Cage may do ABG at 8pm. CN aware. Will endorse to PM RN for RHIANNA. Addendum: 09/03/18 at 1923 by PAT HOLDEN RN Addendum: JEN Elise made aware that pt only had UOP 40 cc w/in 3 hours despite of lasix IVP given. FC patency checked.
[2018-09-03 20:44] LABS: ABG BASE EXCESS 5.7 mmol/L; ABG OXYGEN SATURATION 92.2 % (92.0-98.5); ABG PH 7.348 (7.350-7.450); ABG PO2 71.1 mmHg (75.0-100.0); AaDO2 142.8 mmHg; COHb 1.8 % (0.5-1.5); MetHb 0.5 % (0.0-1.5); O2Hb 90.1 % (94.0-97.0); PEEP,BG 8 cm H2O; SITE, ABG Right Radial
--- NOTE | 2018-09-03 20:48 | NUR ---
ABG DONE. NOTIFIED RN WITH THE RESULT.
[2018-09-03] MEDS: HEPARIN SODIUM, PORCINE 5000 UNITS/1 ML VIAL SQ SCH (21:36)
[2018-09-03] MEDS: MAGNESIUM HYDROXIDE 30 ML UDC PO SCH (21:39)
[2018-09-03] MEDS: TAMSULOSIN 0.4 MG CAP.SR.24H PO SCH (21:39)
[2018-09-03] MEDS: INSULIN GLARGINE, 100 UNIT/ML CARTRIDGE SQ SCH (21:39)
--- NOTE | 2018-09-03 22:00 | NUR ---
dr. alejandro was called r/t pt's lactose levei 2.6 no new order given
--- NOTE | 2018-09-03 22:04 | NUR ---
was notified of pt 's abg's result at 1999 new order do abg in the am
--- NOTE | 2018-09-03 23:21 | NUR ---
report given to luis miguel foreman all questions answered pt condition remains guarded wothout any charges
[2018-09-04] VITALS (38 sets, daily range): BP systolic 91–145; BP diastolic 25–104
[2018-09-04] MEDS: PIPERACILLIN /TAZOBACTAM 3.375 G in IV D5W 50 ML IV SCH ×2 (00:09→06:26)
[2018-09-04 01:30] LABS: APPEARANCE,URINE TURBID (CLEAR); BILIRUBIN,URINE 2+ (NEGATIVE); BLOOD, URINE NEGATIVE Ery/uL (NEGATIVE); COLOR,URINE ORANGE (YELLOW); KETONES,URINE TRACE (NEGATIVE); LEUKOCYTE ESTERASE ,URINE TRACE (NEGATIVE); NITRITE, URINE POSITIVE (NEGATIVE); PH,URINE 5.5 (5.0-8.0); PROTEIN,URINE 3+ mg/dl (NEGATIVE); UGLUCOSE NEGATIVE (NEGATIVE)
[2018-09-04 01:42] LABS: BACTERIA,URINE Moderate /HPF (None Seen); SQUAMOUS EPITHELIAL CELL,UR Rare /HPF (None Seen); URINE AMORPHOUS URATE Many /HPF (None Seen); WBC,URINE 81-100 /HPF (0-3)
[2018-09-04] MEDS: ALBUTEROL FS 2.5 MG/0.5 ML VIAL.NEB NEB SCH ×6 (03:16→23:58)
[2018-09-04] MEDS: IPRATROPIUM NEB FS 0.5 MG/2.5 ML AMPUL.NEB NEB SCH ×6 (03:17→23:58)
--- NOTE | 2018-09-04 08:00 | NUR ---
ICU/RN AM SHIFT INITIAL NOTES RECEIVED PT ASLEEP, LETHARGIC BUT EASILY AROUSED. A/O X 3, ON BI-PAP WITH FIO2 50%, NO ACUTE RESPIRATORY DISTRESS, LUNG SOUNDS CLEAR. RESPIRATIONS EVEN & UNLABORED. ON TELE WITH SINUS RHYTHM WITH BBB & INVERTED T-WAVE, HR 64. IV SITES FLUSHED, PATENT, NO S/S OF INFECTION. STACK CATHETER INTACT WITH MINIMAL URINE OUTPUT, YELLOW URINE. PT ON NPO AT THIS TIME. NOTED WITH BILATERAL DISCOLORATION OF LOWER LEGS, PITTING, PAIN WHEN TOUCHED. SCHEDULED AM MEDS TO BE GIVEN. CL WITHIN REACHED AND SAFETY MAINTAINED. ON GOING MONITORING.
[2018-09-04 08:32] LABS: CALCIUM, SERUM 8.1 mg/dL (8.5-10.1); POTASSIUM 5.9 mmol/L (3.5-5.1)
[2018-09-04 08:38] LABS: ALBUMIN 2.6 g/dL (3.4-5.0); BILIRUBIN,TOTAL 0.9 mg/dL (0.2-1.0); MAGNESIUM 1.7 mg/dL (1.8-2.4); PHOSPHORUS 6.3 mg/dL (2.5-4.9); TOTAL PROTEIN, SERUM 7.3 g/dL (6.4-8.2)
[2018-09-04] MEDS: BLOOD SUGAR DIAGNOSTIC 1 EACH STRIP IN SCH ×4 (08:56→21:15)
[2018-09-04] MEDS: FOLIC ACID 1 MG TABLET PO SCH (08:57)
[2018-09-04] MEDS: DULOXETINE HCL 30 MG CAPSULE.DR PO SCH (08:57)
[2018-09-04] MEDS: PREGABALIN 100 MG CAPSULE PO SCH (08:57)
[2018-09-04] MEDS: POTASSIUM CHLORIDE 10 MEQ TABLET.SA PO SCH (08:57)
[2018-09-04] MEDS: FUROSEMIDE 40 MG/4 ML VIAL IV SCH ×3 (08:57→17:49)
[2018-09-04] MEDS: methylPREDNISolone SOD SUCC 40 MG/ML VIAL IV SCH ×2 (08:57→17:49)
[2018-09-04] MEDS: DOCUSATE SODIUM 100 MG CAPSULE PO SCH ×2 (08:57→17:00)
[2018-09-04] MEDS: LACTOBACILLUS RHAMNOSUS GG 1 EACH CAP.SPRINK PO SCH ×2 (08:57→17:00)
[2018-09-04] MEDS: TOPIRAMATE 100 MG TABLET PO SCH ×2 (08:58→17:49)
[2018-09-04] MEDS: PROSOURCE / PROSTAT (PYXIS) 30 ML UDC PO SCH ×2 (08:58→17:00)
[2018-09-04] MEDS: GABAPENTIN 300 MG CAPSULE PO SCH ×4 (08:58→17:49)
[2018-09-04] MEDS ORDERED: PROPRANOLOL LA 60 MG CAP.SA.24H PO SCH (09:00)
[2018-09-04] MEDS: HEPARIN SODIUM, PORCINE 5000 UNITS/1 ML VIAL SQ SCH ×2 (09:00→21:18)
[2018-09-04] MEDS: INSULIN GLARGINE, 100 UNIT/ML CARTRIDGE SQ SCH ×2 (09:02→21:19)
--- NOTE | 2018-09-04 09:02 | NUR ---
WOUND CARE CONSULT: PT FOLLOWED BY PLASTIC SURGERY TEAM FOR SKIN/WOUND TREATMENT PLAN. DEFER TO SURGICAL TEAM FOR WOUND TREATMENT PLAN. MEPILEX IN USE UNDER BIPAP MASK FOR NASAL BRIDGE AND CHEEK PROTECTION. ALL SKIN PROTECTION MEASURES IN PLACE AND DISCUSSED WITH NURSING STAFF. PT ON [facility] AIR BED. WILL SEE PRN. Addendum: 09/04/18 at 0904 by NIKITA BOSWELL WNDNU Amended: Links added.
[2018-09-04] MEDS: INSULIN REGULAR, HUMAN 100 UNIT/ML 3 ML VIAL SQ PRN ×4 (09:03→21:29)
[2018-09-04] MEDS: CLOTRIMAZOLE 1% 15 GM TUBE TP SCH ×2 (09:04→17:50)
[2018-09-04 09:36] LABS: BASOPHILS % (AUTO) 0.4 % (0.0-2.0); EOSINOPHILS % (AUTO) 0.1 % (0.0-6.0); HEMATOCRIT 46 % (39-51); HEMOGLOBIN 13.7 g/dL (13.5-17.5); LYMPHOCYTES # (AUTO) 1.3 /CMM (0.8-4.8); LYMPHOCYTES % (AUTO) 10.6 % (20.0-44.0); MEAN CORPUSCULAR HGB CONC 30 g/dl (31.0-36.0); MEAN CORPUSCULAR VOLUME 98 fL (80-96); MONOCYTES % (AUTO) 7.9 % (2.0-12.0); NEUTROPHILS # (AUTO) 10.2 /CMM (1.8-8.9); PLATELET COUNT (AUTO) 158 /CMM (150-450); RED BLOOD CELL COUNT(AUTO) 4.68 MIL/uL (4.5-6.0); WHITE BLOOD COUNT (AUTO) 12.6 K/uL (4.3-11.0)
[2018-09-04] MEDS ORDERED: INSULIN REGULAR, HUMAN 100 UNIT/ML 10 ML VIAL IV ONE (10:30)
[2018-09-04] MEDS ORDERED: DEXTROSE 50%-WATER 50 ML DISP.SYRIN IVP ONE (10:30)
[2018-09-04] MEDS ORDERED: DEXTROSE 10% IN WATER 250 ML BAG IV ONE (10:45)
--- NOTE | 2018-09-04 10:45 | NUR ---
ICU/RN Lila MILLER MENTIONED TO DR. BLUM ABOUT PT'S MAGNESIUM LEVEL, PER MED HE WILL TAKE CARE OF IT, ALSO NOTIFIED PRIMARY. NO NEW ORDER RECEIVED YET AT THIS TIME. MONITORING CONTINUED.
--- NOTE | 2018-09-04 11:15 | NUR ---
ICU/RN O2 VIA N/C PT MORE ALERT, AWAKE. REQUESTING TO CHANGE BI-PAP TO O2 VIA N/C. PRIVATE TUTORS AND TEACHERS NOTIFIED CHANGE O2 VIA N/C WITH 5L O2. ON GOING MONITORING.
[2018-09-04] MEDS ORDERED: PIPERACILLIN /TAZOBACTAM 3.375 G in IV D5W 100 ML IV SCH (12:00)
[2018-09-04] MEDS: CEFEPIME 1 GM in IV D5W 50 ML IV SCH (12:34)
[2018-09-04 13:42] LABS: APPEARANCE,URINE SL CLOUDY (CLEAR); BILIRUBIN,URINE NEGATIVE (NEGATIVE); BLOOD, URINE 1+ Ery/uL (NEGATIVE); COLOR,URINE YELLOW (YELLOW); KETONES,URINE NEGATIVE (NEGATIVE); LEUKOCYTE ESTERASE ,URINE 1+ (NEGATIVE); NITRITE, URINE NEGATIVE (NEGATIVE); PH,URINE 5.5 (5.0-8.0); PROTEIN,URINE 1+ mg/dl (NEGATIVE); UGLUCOSE NEGATIVE (NEGATIVE); UROBILINOGEN,URINE 0.2 EU/dL (0.2)
[2018-09-04 13:49] LABS: CREATININE, URINE 115.6 MG/DL (30.0-125.0); URINE TOTAL PROTEIN 58.2 mg/dL (0-11.9)
[2018-09-04 14:17] LABS: BACTERIA,URINE Rare /HPF (None Seen); CALCIUM OXALATE CRYSTALS,UR Few /HPF (None Seen)
[2018-09-04 14:18] LABS: SQUAMOUS EPITHELIAL CELL,UR Few /HPF (None Seen)
[2018-09-04 14:24] LABS: CALCIUM, SERUM 8.1 mg/dL (8.5-10.1); CREATININE 2.9 mg/dL (0.6-1.3); POTASSIUM 5.2 mmol/L (3.5-5.1)
[2018-09-04 15:50] LABS: EOSINOPHIL,URINE None Seen
--- NOTE | 2018-09-04 17:00 | NUR ---
ICU/RN AFTERNOON ROUNDS PM CARE PROVIDED, NO CHANGE OF CONDITION.
[2018-09-04] MEDS: VANCOMYCIN 1.25 GM in IV D5W 500 ML IV SCH (17:53)
--- NOTE | 2018-09-04 19:24 | NUR ---
ICU/RN AM SHIFT END NOTES PT MORE ALERT NOW, ON 6L O2 VIA N/C, STILL NPO, ABLE TO ADMINISTER NEURONTIN AND TOPAMAX P.O WITH LITTLE AMOUNT OF WATER, MD AWARE. ALL NEEDS MET. PT ENDORSED TO PM NURSE TO CONTINUE CARE. CL WITHIN REACHED AND SAFETY MAINTAINED.
[2018-09-04] MEDS: TAMSULOSIN 0.4 MG CAP.SR.24H PO SCH (21:28)
[2018-09-04] MEDS: MAGNESIUM HYDROXIDE 30 ML UDC PO SCH (21:28)
[2018-09-05] VITALS (32 sets, daily range): BP systolic 91–161; BP diastolic 45–86
[2018-09-05] MEDS: CEFEPIME 1 GM in IV D5W 50 ML IV SCH ×2 (01:00→13:20)
[2018-09-05] MEDS: IPRATROPIUM NEB FS 0.5 MG/2.5 ML AMPUL.NEB NEB SCH ×6 (04:28→23:40)
[2018-09-05] MEDS: ALBUTEROL FS 2.5 MG/0.5 ML VIAL.NEB NEB SCH ×6 (04:28→23:40)
[2018-09-05 05:16] LABS: BASOPHILS % (AUTO) 0.2 % (0.0-2.0); EOSINOPHILS % (AUTO) 0.1 % (0.0-6.0); HEMATOCRIT 34 % (39-51); HEMOGLOBIN 13.1 g/dL (13.5-17.5); MEAN CORPUSCULAR HGB CONC 38 g/dl (31.0-36.0); MEAN CORPUSCULAR VOLUME 94 fL (80-96); MONOCYTES # (AUTO) 0.9 /CMM (0.1-1.30); NEUTROPHILS # (AUTO) 12.7 /CMM (1.8-8.9); NEUTROPHILS % (AUTO) 86.7 % (43.0-81.0); PLATELET COUNT (AUTO) 153 /CMM (150-450); RED BLOOD CELL COUNT(AUTO) 3.62 MIL/uL (4.5-6.0); WHITE BLOOD COUNT (AUTO) 14.7 K/uL (4.3-11.0)
[2018-09-05 05:40] LABS: ALBUMIN 2.7 g/dL (3.4-5.0); BILIRUBIN,TOTAL 0.7 mg/dL (0.2-1.0); CREATININE 2.1 mg/dL (0.6-1.3); PHOSPHORUS 6.7 mg/dL (2.5-4.9); POTASSIUM 4.6 mmol/L (3.5-5.1); TOTAL PROTEIN, SERUM 7.5 g/dL (6.4-8.2)
--- NOTE | 2018-09-05 07:30 | NUR ---
SOLAR SALES ASSOCIATE OPENING NOTE RECEIVED REPORT FROM PM NURSE.PATIENT IN BED. A/O X 4. ON NASAL CANULA 5L.NO SOB NO DISTRESS NOTED. ON TELE WITH SINUS RHYTHM WITH BBB & INVERTED T-WAVE, HR 74. IV SITES FLUSHED, PATENT, NO S/S OF INFECTION. STACK CATHETER INTACT AND DRAINING CLEAR YELLOW URINE. PT ON NPO AT THIS TIME. BED IS LOCKED AND IN LOW POSITION.CALL LIGHT IN REACH.SRX3.WILL CONTINUE TO MONITOR.
[2018-09-05] MEDS: BLOOD SUGAR DIAGNOSTIC 1 EACH STRIP IN SCH ×4 (07:54→21:36)
[2018-09-05] MEDS: LACTOBACILLUS RHAMNOSUS GG 1 EACH CAP.SPRINK PO SCH ×2 (08:35→16:47)
[2018-09-05] MEDS: GABAPENTIN 300 MG CAPSULE PO SCH ×3 (08:35→16:47)
[2018-09-05] MEDS: TOPIRAMATE 100 MG TABLET PO SCH ×2 (08:35→16:47)
[2018-09-05] MEDS: FUROSEMIDE 100 MG/10 ML VIAL IV SCH ×3 (08:35→16:47)
[2018-09-05] MEDS: methylPREDNISolone SOD SUCC 40 MG/ML VIAL IV SCH ×2 (08:35→16:47)
[2018-09-05] MEDS: DULOXETINE HCL 30 MG CAPSULE.DR PO SCH (08:35)
[2018-09-05] MEDS: FOLIC ACID 1 MG TABLET PO SCH (08:35)
[2018-09-05] MEDS: DOCUSATE SODIUM 100 MG CAPSULE PO SCH ×2 (08:35→16:47)
[2018-09-05] MEDS: PREGABALIN 100 MG CAPSULE PO SCH (08:35)
[2018-09-05] MEDS: HEPARIN SODIUM, PORCINE 5000 UNITS/1 ML VIAL SQ SCH ×2 (08:36→21:36)
[2018-09-05] MEDS: CLOTRIMAZOLE 1% 15 GM TUBE TP SCH ×2 (08:37→16:48)
[2018-09-05] MEDS ORDERED: METOLAZONE 2.5 MG TABLET PO SCH (09:00)
[2018-09-05] MEDS: INSULIN GLARGINE, 100 UNIT/ML CARTRIDGE SQ SCH ×2 (09:00→21:47)
--- NOTE | 2018-09-05 09:00 | NUR ---
WIRE DRAWING MACHINE TENDER NOTE INSULIN LANTUS IS NOT ADMINISTERED,BECAUSE OF PATIENT NPO.
[2018-09-05] MEDS: PROSOURCE / PROSTAT (PYXIS) 30 ML UDC PO SCH ×2 (09:23→16:47)
--- NOTE | 2018-09-05 09:25 | NUR ---
ASSISTANT ANALYST OPENING NOTE RECEIVED REPORT FROM PM NURSE.PATIENT IN BED. A/O X 4. ON NASAL CANULA 5L.NO SOB NO DISTRESS NOTED. ON TELE WITH SINUS RHYTHM WITH BBB & INVERTED T-WAVE, HR 74. IV SITES FLUSHED, PATENT, NO S/S OF INFECTION. STACK CATHETER INTACT AND DRAINING CLEAR YELLOW URINE. PT ON NPO AT THIS TIME. BED IS LOCKED AND IN LOW POSITION.CALL LIGHT IN REACH.SRX3.WILL CONTINUE TO MONITOR. Addendum: 09/05/18 at 1546 by NILS NEVILLE RN 0730 AM
[2018-09-05 09:30] LABS: FERRITIN 58 ng/mL (8-388)
[2018-09-05 09:37] LABS: IRON, SERUM 19 ug/dl (50-175); TOTAL IRON BINDING CAPACITY 286 ug/dl (250-450)
[2018-09-05] MEDS ORDERED: ACETAMINOPHEN 325 MG TABLET PO PRN (11:00)
[2018-09-05] MEDS: MORPHINE SULFATE INJ 2 MG/ML DISP.SYRIN IV PRN ×2 (11:06→16:47)
--- NOTE | 2018-09-05 11:15 | NUR ---
GAS MASK ASSEMBLER NOTE PATIENT C/O PAIN IN BLE. MADE AWARE.GOT NEW ORDER FOR MORPHINE 2MG Q4H PRN FOR PAIN.NOTED WITH LOW GRADE FEVER OF 99.6F.GOT NEW ORDER FOR TYLENOL .WILL CONTINUE TO MONITOR.TOLERATING O2 4L VIA NASAL CANULA.
[2018-09-05] MEDS: INSULIN REGULAR, HUMAN 100 UNIT/ML 3 ML VIAL SQ PRN (11:43)
[2018-09-05 11:51] LABS: ABG BASE EXCESS 7.6 mmol/L; ABG OXYGEN SATURATION 88.7 % (92.0-98.5); ABG PCO2 65.2 mmHg (35.0-45.0); ABG PH 7.353 (7.350-7.450); ABG PO2 60.1 mmHg (75.0-100.0); AaDO2 150.1 mmHg; COHb 1.1 % (0.5-1.5); MetHb 0.6 % (0.0-1.5); O2Hb 87.2 % (94.0-97.0); SITE, ABG Left Radial; VENT MODE, BG NASALCANNULA
--- NOTE | 2018-09-05 13:00 | NUR ---
MEDIA PROMOTER NOTE SEEN BY ,UPDATED PATIENT CONDITION WITH LABS.GOT NEW ORDER FRO ABG.RESULT RELAYED TO .NNO.WILL CONTINUE TO MONITOR.
[2018-09-05] MEDS ORDERED: DEXTROSE 10% IN WATER 250 ML BAG IV ONE (13:29)
--- NOTE | 2018-09-05 13:45 | NUR ---
BOOT AND SHOE LABORER NOTE CONTROL PANEL BUILDER MADE AWARE ABOUT PATIENT REQUEST TO TALK TO THE PATIENT.SPOKE TO ANTONIA SALCIDO .REGARDING PLACEMENT.
[2018-09-05 15:27] LABS: APPEARANCE,URINE CLEAR (CLEAR); BILIRUBIN,URINE NEGATIVE (NEGATIVE); BLOOD, URINE TRACE-INTA Ery/uL (NEGATIVE); COLOR,URINE YELLOW (YELLOW); KETONES,URINE NEGATIVE (NEGATIVE); LEUKOCYTE ESTERASE ,URINE NEGATIVE (NEGATIVE); NITRITE, URINE NEGATIVE (NEGATIVE); PH,URINE 5.5 (5.0-8.0); PROTEIN,URINE NEGATIVE (NEGATIVE); UGLUCOSE NEGATIVE (NEGATIVE); UROBILINOGEN,URINE 0.2 EU/dL (0.2)
[2018-09-05 15:37] LABS: CREATININE, URINE 15.9 MG/DL (30.0-125.0); URINE TOTAL PROTEIN 7.9 mg/dL (0-11.9)
[2018-09-05 15:59] LABS: BACTERIA,URINE None seen /HPF (None Seen); SQUAMOUS EPITHELIAL CELL,UR Few /HPF (None Seen); WBC,URINE 0-2 /HPF (0-3)
[2018-09-05 16:01] LABS: EOSINOPHIL,URINE None Seen
[2018-09-05] MEDS: VANCOMYCIN 1.25 GM in IV D5W 500 ML IV SCH (16:50)
[2018-09-05] MEDS ORDERED: FOSFOMYCIN TROMETHAMINE 3 G/PKT PACKET PO ONE (17:00)
--- NOTE | 2018-09-05 17:00 | NUR ---
SILK PRINTER NOTE SEEN BY JEN HEREDIA,FROM ID.UPDATED ABOUT PATIENT CONDITION WITH URINE CULTURE REPORT.GOT NEW ORDERS.PATIENT MADE AWARE.
[2018-09-05] MEDS: LINEZOLID 600 MG TABLET PO SCH (17:39)
--- NOTE | 2018-09-05 18:44 | NUR ---
TRIM TECHNICIAN CLOSING NOTE PATIENT IN BED. A/O X 4. ON NASAL CANULA 4L.NO SOB NO DISTRESS NOTED. ON TELE WITH SINUS RHYTHM WITH BBB & HR 84. IV SITES FLUSHED, PATENT, NO S/S OF INFECTION. STACK CATHETER INTACT AND DRAINING CLEAR YELLOW URINE. ON CLEAR LIQUID DIET.ASPIRATION AND SAFETY MEASURES IN PLACE.SRX3.CALL LIGHT IN REACH.WILL ENDORSE TO PM NURSE FOR RHIANNA.
--- NOTE | 2018-09-05 19:30 | NUR ---
CAR CLEANER RCD PT W/DX COPD EXACERBATION. NSR ON MONITOR. O2 4 L NC. STACK CATH DRAINING LARGE AMOUNT OF CLEAR YELLOW URINE. PT DENIES PAIN.
[2018-09-05] MEDS: TAMSULOSIN 0.4 MG CAP.SR.24H PO SCH (21:30)
[2018-09-05] MEDS: MAGNESIUM HYDROXIDE 30 ML UDC PO SCH (21:30)
--- NOTE | 2018-09-05 22:00 | NUR ---
STUDENT LIFE DEAN PT NOTED TO BE DESATURATING PLACED ON BIPAP BY RT. CONTINUE TO MONITOR.
[2018-09-06] VITALS (36 sets, daily range): BP systolic 76–130; BP diastolic 36–98
[2018-09-06] MEDS: CEFEPIME 1 GM in IV D5W 50 ML IV SCH ×2 (01:00→12:05)
[2018-09-06] MEDS: IPRATROPIUM NEB FS 0.5 MG/2.5 ML AMPUL.NEB NEB SCH ×6 (03:52→23:36)
[2018-09-06] MEDS: ALBUTEROL FS 2.5 MG/0.5 ML VIAL.NEB NEB SCH ×6 (03:52→23:36)
[2018-09-06 04:35] LABS: BASOPHILS % (AUTO) 0.6 % (0.0-2.0); HEMATOCRIT 40 % (39-51); HEMOGLOBIN 12.3 g/dL (13.5-17.5); LYMPHOCYTES # (AUTO) 0.6 /CMM (0.8-4.8); MEAN CORPUSCULAR HGB CONC 31 g/dl (31.0-36.0); MEAN CORPUSCULAR VOLUME 95 fL (80-96); MONOCYTES # (AUTO) 0.5 /CMM (0.1-1.30); MONOCYTES % (AUTO) 7.6 % (2.0-12.0); NEUTROPHILS % (AUTO) 83.8 % (43.0-81.0); PLATELET COUNT (AUTO) 113 /CMM (150-450); RED BLOOD CELL COUNT(AUTO) 4.19 MIL/uL (4.5-6.0); WHITE BLOOD COUNT (AUTO) 7.2 K/uL (4.3-11.0)
--- NOTE | 2018-09-06 04:40 | NUR ---
SATURATION DIVER BIPAP REMOVED PER PT REQUEST; PLACED ON O2 4L NC. CONTINUE TO MONITOR.
[2018-09-06 04:53] LABS: ALBUMIN 2.6 g/dL (3.4-5.0); BILIRUBIN,TOTAL 0.7 mg/dL (0.2-1.0); CALCIUM, SERUM 8.3 mg/dL (8.5-10.1); CREATININE 1.4 mg/dL (0.6-1.3); MAGNESIUM 1.7 mg/dL (1.8-2.4); POTASSIUM 3.5 mmol/L (3.5-5.1); TOTAL PROTEIN, SERUM 6.9 g/dL (6.4-8.2)
[2018-09-06] MEDS: LINEZOLID 600 MG TABLET PO SCH ×2 (05:30→17:20)
[2018-09-06] MEDS: MORPHINE SULFATE INJ 2 MG/ML DISP.SYRIN IV PRN ×6 (05:46→18:27)
--- NOTE | 2018-09-06 05:50 | NUR ---
BOAT JOINER HELPER PT REQUESTED MORPHINE FOR LEG PAIN 11/14. ADMINISTERED PER ORDER. CONTINUE TO MONITOR.
[2018-09-06] MEDS ORDERED: acetaZOLAMIDE SODIUM 500 MG/VIAL VIAL IV ONE (08:00)
[2018-09-06] MEDS: BLOOD SUGAR DIAGNOSTIC 1 EACH STRIP IN SCH ×4 (08:14→21:15)
[2018-09-06] MEDS: LACTOBACILLUS RHAMNOSUS GG 1 EACH CAP.SPRINK PO SCH ×2 (08:56→17:20)
[2018-09-06] MEDS: Magnesium 1GM/D5W 100ML PREMIX 100 ML IV SCH ×2 (08:56→10:11)
[2018-09-06] MEDS: DOCUSATE SODIUM 100 MG CAPSULE PO SCH ×2 (08:56→17:21)
[2018-09-06] MEDS: methylPREDNISolone SOD SUCC 40 MG/ML VIAL IV SCH ×2 (08:56→17:20)
[2018-09-06] MEDS: TOPIRAMATE 100 MG TABLET PO SCH ×2 (08:57→17:21)
[2018-09-06] MEDS: GABAPENTIN 300 MG CAPSULE PO SCH ×3 (08:57→17:21)
[2018-09-06] MEDS: PREGABALIN 100 MG CAPSULE PO SCH (08:57)
[2018-09-06] MEDS: FOLIC ACID 1 MG TABLET PO SCH (08:57)
[2018-09-06] MEDS: HEPARIN SODIUM, PORCINE 5000 UNITS/1 ML VIAL SQ SCH ×2 (08:58→21:16)
[2018-09-06] MEDS: PROSOURCE / PROSTAT (PYXIS) 30 ML UDC PO SCH ×2 (09:17→17:20)
[2018-09-06] MEDS: INSULIN GLARGINE, 100 UNIT/ML CARTRIDGE SQ SCH ×2 (10:10→21:17)
[2018-09-06] MEDS: CLOTRIMAZOLE 1% 15 GM TUBE TP SCH ×2 (10:11→17:22)
[2018-09-06 13:07] LABS: *SPE A/G RATIO 0.8 (0.7-1.7); *SPE ALBUMIN 3.3 g/dL (2.9-4.4); *SPE ALPHA-1-GLOBULIN 0.2 g/dL (0.0-0.4); *SPE ALPHA-2-GLOBULIN 0.6 g/dL (0.4-1.0); *SPE BETA GLOBULIN 1.2 g/dL (0.7-1.3); *SPE M-SPIKE Not Observed g/dL (Not Observed); *SPEGAMMA GLOBULIN 1.9 g/dL (0.4-1.8)
[2018-09-06 14:11] LABS: PTH, INTACT 107 pg/mL (15-65)
--- NOTE | 2018-09-06 16:54 | NUR ---
RN NOTES 0730-RECEIVED PATIENT FROM RN. PATIENT REMAISN ON NASAL CANNULA, DENIES SOB THIS KENNEDY.ON SPECIAL BED. 0900-FED SAFELY, ASPIRATION PRECAUTIONS OBSERVED, TOLERATED FOOD CONSISTENCY WELL.PATIENT REPOSITIONED SAFELY. 1230-ACCUCHECKS DONE, NO COVERAGE THIS TIME. NO SIGN/SYMPTOMS OF HYPOGLYCEMIA. 1600-AFBRILE.
[2018-09-06] MEDS: INSULIN REGULAR, HUMAN 100 UNIT/ML 3 ML VIAL SQ PRN ×2 (17:18→21:18)
[2018-09-06] MEDS: NEOMY SULF/BACITRAC ZN/POLY 15 GM TUBE TP PRN (17:19)
--- NOTE | 2018-09-06 19:04 | NUR ---
RN NOTES 1899-PATIENT AWAKE, ALERT. SISTER STAYED MOST OF THE DAY, HER QUESTIONS ANSWERED.POSITIONED FOR SAFETY. ON AIRVO 30l/60%. Addendum: 09/06/18 at 1912 by YASSINE CAZARES RN PLEASE DELETE PREVIOUS NOTE, ENTERED INCORRECTLY
--- NOTE | 2018-09-06 19:13 | NUR ---
RN NOTES 1900-PATIENT RESTING. REPORT GIVEN TO RN FOR FURTHER CARE.TOLERATED FOOD CONSISTENCY WELL.
[2018-09-06] MEDS: TAMSULOSIN 0.4 MG CAP.SR.24H PO SCH (21:15)
[2018-09-06] MEDS: MAGNESIUM HYDROXIDE 30 ML UDC PO SCH (21:15)
--- NOTE | 2018-09-06 23:38 | NUR ---
PT PLACED ON NOB BIPAP. RN NOTIFIED. WILL CONTINUE TO MONITOR.
[2018-09-07] VITALS (23 sets, daily range): BP systolic 101–147; BP diastolic 57–88
[2018-09-07] MEDS: CEFEPIME 1 GM in IV D5W 50 ML IV SCH ×2 (01:30→12:01)
--- NOTE | 2018-09-07 03:44 | NUR ---
PT REQUESTED TO BE OFF BIPAP.
[2018-09-07] MEDS: ALBUTEROL FS 2.5 MG/0.5 ML VIAL.NEB NEB SCH ×6 (03:46→23:26)
[2018-09-07] MEDS: IPRATROPIUM NEB FS 0.5 MG/2.5 ML AMPUL.NEB NEB SCH ×6 (03:46→23:20)
[2018-09-07] MEDS: LINEZOLID 600 MG TABLET PO SCH ×2 (04:05→17:34)
[2018-09-07] MEDS: MORPHINE SULFATE INJ 2 MG/ML DISP.SYRIN IV PRN ×3 (04:06→22:13)
[2018-09-07 04:25] LABS: BASOPHILS # (AUTO) 0.1 /CMM (0.0-0.2); BASOPHILS % (AUTO) 1.1 % (0.0-2.0); HEMATOCRIT 39 % (39-51); HEMOGLOBIN 12.3 g/dL (13.5-17.5); LYMPHOCYTES # (AUTO) 0.5 /CMM (0.8-4.8); MEAN CORPUSCULAR HGB CONC 31 g/dl (31.0-36.0); MEAN CORPUSCULAR VOLUME 95 fL (80-96); MONOCYTES # (AUTO) 0.4 /CMM (0.1-1.30); MONOCYTES % (AUTO) 7.6 % (2.0-12.0); NEUTROPHILS # (AUTO) 4.2 /CMM (1.8-8.9); NEUTROPHILS % (AUTO) 81.3 % (43.0-81.0); PLATELET COUNT (AUTO) 96 /CMM (150-450); RED BLOOD CELL COUNT(AUTO) 4.12 MIL/uL (4.5-6.0); WHITE BLOOD COUNT (AUTO) 5.2 K/uL (4.3-11.0)
[2018-09-07 04:42] LABS: ALBUMIN 2.5 g/dL (3.4-5.0); BILIRUBIN,TOTAL 0.7 mg/dL (0.2-1.0); CALCIUM, SERUM 8.2 mg/dL (8.5-10.1); CREATININE 0.9 mg/dL (0.6-1.3); MAGNESIUM 1.9 mg/dL (1.8-2.4); PHOSPHORUS 3.6 mg/dL (2.5-4.9); POTASSIUM 3.4 mmol/L (3.5-5.1); TOTAL PROTEIN, SERUM 6.7 g/dL (6.4-8.2)
--- NOTE | 2018-09-07 06:43 | NUR ---
MAKEUP EDITOR PT ON BIPAP FROM [phone]; PER PT REQUEST BIPAP REMOVED. PT GIVEN MORPHINE IV ORDERED FOR BLE PAIN 11/14. PT ON ROTATION MODE UNTIL 0600 WHEN HE REQUESTED IT BE TURNED OFF.
[2018-09-07] MEDS: BLOOD SUGAR DIAGNOSTIC 1 EACH STRIP IN SCH ×4 (08:04→21:57)
[2018-09-07] MEDS: PREGABALIN 100 MG CAPSULE PO SCH (08:18)
[2018-09-07] MEDS: TOPIRAMATE 100 MG TABLET PO SCH ×2 (08:18→17:23)
[2018-09-07] MEDS: GABAPENTIN 300 MG CAPSULE PO SCH ×3 (08:18→17:23)
[2018-09-07] MEDS: LACTOBACILLUS RHAMNOSUS GG 1 EACH CAP.SPRINK PO SCH ×2 (08:18→17:23)
[2018-09-07] MEDS: methylPREDNISolone SOD SUCC 40 MG/ML VIAL IV SCH ×2 (08:18→17:23)
[2018-09-07] MEDS: FOLIC ACID 1 MG TABLET PO SCH (08:18)
[2018-09-07] MEDS: DOCUSATE SODIUM 100 MG CAPSULE PO SCH ×2 (08:18→17:23)
[2018-09-07] MEDS: HEPARIN SODIUM, PORCINE 5000 UNITS/1 ML VIAL SQ SCH ×2 (08:20→21:57)
[2018-09-07] MEDS: INSULIN GLARGINE, 100 UNIT/ML CARTRIDGE SQ SCH ×2 (08:21→21:56)
[2018-09-07] MEDS: CLOTRIMAZOLE 1% 15 GM TUBE TP SCH ×2 (08:22→17:23)
[2018-09-07] MEDS: PROSOURCE / PROSTAT (PYXIS) 30 ML UDC PO SCH ×2 (08:24→17:24)
--- NOTE | 2018-09-07 09:42 | NUR ---
RN NOTE 0715: Received patient awake, A/Ox4. On 4LPM of O2 via NC, no respiratory distress noted at this time. PIVs intact. Ascencio cath intact, noted with clear yellow urine drained to BSD. On Barimaxx, on turning. Continue skin treatments as ordered. On isolation prec for VRE urine, maintained and observed. 0940: No any significant changes noted at this time. Kept clean, warm and dry. Needs attended. \Kept call light at reach.
[2018-09-07] MEDS ORDERED: POTASSIUM CHLORIDE 20 MEQ POWDER PACKET PO SCH (11:00)
[2018-09-07] MEDS ORDERED: POTASSIUM CHLORIDE 20 MEQ TAB.PRT.SR PO ONE (11:00)
[2018-09-07] MEDS: ONDANSETRON HCL/PF 4 MG/2 ML VIAL IV PRN ×2 (14:25→22:12)
--- NOTE | 2018-09-07 15:35 | NUR ---
RN NOTE 1430: With episode of nausea, obtained order to give Zofran PRN. 1530: Transferred patient via bed using ACLS protocol. No any significant changes noted. VSS, O2 92% on 4LPM O2 via NC.
--- NOTE | 2018-09-07 15:45 | NUR ---
RN NOTES RECEIVED PATIENT FROM ICU. A/A/O X4, ABLE TO MAKE NEEDS KNOWN, ON NASAL CANNULA WITH 4LPM, NOT ON ANY FORM OF DISTRESS, BREATHING EVEN AND UNLABORED. PATIENT ATTACHED TO MONITOR, ORIENTED TO UNIT. ENCOURAGE TO CALL FOR ASSISTANCE AND HELP, CALL LIGHT PLACED WITHIN REACH, WILL CONTINUE TO MONITOR AND ANTICIPATE NEEDS
--- NOTE | 2018-09-07 19:49 | NUR ---
RN NOTES ENDORSED FOR CONTINUITY OF CARE. NOT ON ANY FORM OF DISTRESS. NO ACUTE CHANGES WITHIN THE SHIFT. ALL NURSING NEEDS ATTENDED AND MET. SAFETY MEASURES IN PLACE. CALL LIGHT WITHIN REACH
--- NOTE | 2018-09-07 20:00 | NUR ---
RN INITIAL NOTES RECEIVED PATIENT IN BED. A/A/O X4, ABLE TO MAKE NEEDS KNOWN, ON NASAL CANNULA WITH 4LPM, NOT ON ANY FORM OF DISTRESS, BREATHING EVEN AND UNLABORED. PATIENT IS ST ON MONITOR. ALL SAFETY PRECAUTIONS IN PLACE, CALL LIGHT PLACED WITHIN REACH, WILL CONTINUE TO MONITOR AND ANTICIPATE NEEDS.
[2018-09-07] MEDS: INSULIN REGULAR, HUMAN 100 UNIT/ML 3 ML VIAL SQ PRN (21:55)
[2018-09-07] MEDS: MAGNESIUM HYDROXIDE 30 ML UDC PO SCH (21:58)
[2018-09-07] MEDS: TAMSULOSIN 0.4 MG CAP.SR.24H PO SCH (21:58)
--- NOTE | 2018-09-07 22:00 | NUR ---
RN NOTES PT APPROXIMALLY 2220 PT HR WENT TO 210, PT WAS ASYMPTOMATICS. EKG WAS ORDERED, MD WAS PAGED.
--- NOTE | 2018-09-07 23:10 | NUR ---
RN NOTES EKG WAS DONE AND SHOWED PT TO BE ATRIAL FIBRILLATION WITH RAPID VENTRICULAR RESPONSE. HR WAS 165 bpm. MD WAS NOTIFIED AND RESULTS WAS FORWARDED TO MD.
--- NOTE | 2018-09-07 23:27 | NUR ---
RT NOTED PT REFUSED BIPAP. NO RESP DISTRESS NPOTED AT THIS TIME. WILL CONT TO MONITOR PT FOR REST OF SHIFT.
--- NOTE | 2018-09-07 23:46 | NUR ---
RN NOTES CARDIZEM 10MG WAS ADMINISTERED ORDERED BY . WILL CONT TO MONITOR CLOSELY.
[2018-09-08] VITALS: BP_SYST 106; BP_SYST 111; BP_DIAS 61; BP_DIAS 64
[2018-09-08] MEDS ORDERED: DILTIAZEM HCL 25 MG IV IV ONE
[2018-09-08] MEDS: CEFEPIME 1 GM in IV D5W 50 ML IV SCH ×2 (00:57→04:21)
[2018-09-08] MEDS: MORPHINE SULFATE INJ 2 MG/ML DISP.SYRIN IV PRN ×2 (02:25→09:54)
[2018-09-08] MEDS: IPRATROPIUM NEB FS 0.5 MG/2.5 ML AMPUL.NEB NEB SCH ×6 (03:10→23:30)
[2018-09-08] MEDS: ALBUTEROL FS 2.5 MG/0.5 ML VIAL.NEB NEB SCH ×6 (03:30→23:30)
[2018-09-08 04:00] VITALS: BP 106/64
[2018-09-08] MEDS: LINEZOLID 600 MG TABLET PO SCH ×2 (04:26→17:30)
[2018-09-08 07:50] LABS: BASOPHILS % (AUTO) 0.4 % (0.0-2.0); EOSINOPHILS % (AUTO) 0.2 % (0.0-6.0); HEMATOCRIT 43 % (39-51); HEMOGLOBIN 13.1 g/dL (13.5-17.5); LYMPHOCYTES # (AUTO) 0.9 /CMM (0.8-4.8); LYMPHOCYTES % (AUTO) 15.9 % (20.0-44.0); MEAN CORPUSCULAR HGB CONC 31 g/dl (31.0-36.0); MEAN CORPUSCULAR VOLUME 95 fL (80-96); MONOCYTES # (AUTO) 0.5 /CMM (0.1-1.30); MONOCYTES % (AUTO) 9.3 % (2.0-12.0); NEUTROPHILS % (AUTO) 74.2 % (43.0-81.0); PLATELET COUNT (AUTO) 90 /CMM (150-450); RED BLOOD CELL COUNT(AUTO) 4.52 MIL/uL (4.5-6.0); WHITE BLOOD COUNT (AUTO) 5.4 K/uL (4.3-11.0)
[2018-09-08 07:53] LABS: ALBUMIN 2.7 g/dL (3.4-5.0); BILIRUBIN,TOTAL 0.7 mg/dL (0.2-1.0); CREATININE 0.9 mg/dL (0.6-1.3); MAGNESIUM 1.8 mg/dL (1.8-2.4); PHOSPHORUS 3.3 mg/dL (2.5-4.9); POTASSIUM 3.4 mmol/L (3.5-5.1)
[2018-09-08 08:00] VITALS: BP 114/70
[2018-09-08] MEDS: BLOOD SUGAR DIAGNOSTIC 1 EACH STRIP IN SCH ×4 (08:21→21:25)
[2018-09-08] MEDS: HEPARIN SODIUM, PORCINE 5000 UNITS/1 ML VIAL SQ SCH (09:00)
[2018-09-08] MEDS: DOCUSATE SODIUM 100 MG CAPSULE PO SCH ×2 (09:00→17:00)
[2018-09-08 09:04] LABS: LYMPHOCYTES % (MANUAL) 12 % (16-48); MONOCYTES % (MANUAL) 6 % (0-11.0); NEUTROPHILS % (MANUAL) 82 (42-76)
[2018-09-08] MEDS: methylPREDNISolone SOD SUCC 40 MG/ML VIAL IV SCH ×2 (09:48→17:30)
[2018-09-08] MEDS: GABAPENTIN 300 MG CAPSULE PO SCH ×3 (09:49→17:30)
[2018-09-08] MEDS: LACTOBACILLUS RHAMNOSUS GG 1 EACH CAP.SPRINK PO SCH ×2 (09:49→17:30)
[2018-09-08] MEDS: PROSOURCE / PROSTAT (PYXIS) 30 ML UDC PO SCH ×2 (09:49→17:28)
[2018-09-08] MEDS: FOLIC ACID 1 MG TABLET PO SCH (09:49)
[2018-09-08] MEDS: TOPIRAMATE 100 MG TABLET PO SCH ×2 (09:49→17:30)
[2018-09-08] MEDS: PREGABALIN 100 MG CAPSULE PO SCH (09:49)
[2018-09-08] MEDS: INSULIN GLARGINE, 100 UNIT/ML CARTRIDGE SQ SCH ×2 (09:52→21:27)
[2018-09-08] MEDS: NEOMY SULF/BACITRAC ZN/POLY 15 GM TUBE TP PRN (10:06)
[2018-09-08] MEDS: CLOTRIMAZOLE 1% 15 GM TUBE TP SCH ×2 (10:07→17:33)
[2018-09-08] MEDS ORDERED: POTASSIUM CHLORIDE 20 MEQ TAB.PRT.SR PO ONE (11:00)
--- NOTE | 2018-09-08 11:02 | NUR ---
yair rn notes notified dr samson of low platelets 90L. per dnp, ok to hold heparin d/t low platelets. notified of high co2 45. no new orders at this time. will cont to monitor.
[2018-09-08] MEDS ORDERED: acetaZOLAMIDE SODIUM 500 MG/VIAL VIAL IV ONE (11:30)
[2018-09-08 12:00] VITALS: BP 99/60
[2018-09-08] MEDS: DILTIAZEM HCL CD 180 MG PO SCH (12:09)
[2018-09-08] MEDS: INSULIN REGULAR, HUMAN 100 UNIT/ML 3 ML VIAL SQ PRN ×3 (12:13→21:29)
[2018-09-08] MEDS ORDERED: AMIODARONE 150 MG in IV D5W 100 ML IV ONE (12:30)
[2018-09-08] MEDS ORDERED: AMIODARONE 900 MG in IV D5W 482 ML IV PRN (12:30)
--- NOTE | 2018-09-08 13:16 | NUR ---
yair rn notes started amiodrip at 33.3 ml/hr at 1315. will readjust rate 6 hours later as per md order.
[2018-09-08 16:00] VITALS: BP 118/68
[2018-09-08] MEDS ORDERED: APIXABAN 5 MG TABLET PO SCH (17:00)
[2018-09-08] MEDS: RIVAROXABAN 10 MG TABLET PO SCH (17:29)
--- NOTE | 2018-09-08 19:27 | NUR ---
NORMA RN END OF SHIFT NOTES PT ENDORSED TO PM NURSE FOR RHIANNA. PT AWAKE WATCHING TV; NO C/O PAIN. VS STABLE; SINUS TACH ON AMIO DRIP. BED IN LOCKED/LOWEST POSITION. CALL LIGHT IN REACH.
--- NOTE | 2018-09-08 19:52 | NUR ---
TD RN NOTES RECEIVED PT ON BED. A/O X 4. ON NASAL CANNULA 5LPM NO RESPIRATORY DISTRESS NOTED. ON STACK CATH DRAINING YELLOW URINE. RFA G20 AMIODRIP @.5MG/HR. ON TELE MONITOR ST 118. HEAD OF BED ELEVATED. SIDE RAILS UP. CALL LIGHT WITHIN REACH. BED ALARM ON. WILL CONTINUE TO MONITOR PT CLOSELY.
[2018-09-08 20:00] VITALS: BP 114/72
[2018-09-08] MEDS: MAGNESIUM HYDROXIDE 30 ML UDC PO SCH (21:23)
[2018-09-08] MEDS: TAMSULOSIN 0.4 MG CAP.SR.24H PO SCH (21:23)
--- NOTE | 2018-09-08 21:48 | NUR ---
TD RN NOTES PT PLACED ON NOC BIPAP, RT AT BEDSIDE.
[2018-09-09] VITALS: BP 113/71
[2018-09-09] MEDS: CEFEPIME 1 GM in IV D5W 50 ML IV SCH ×2 (00:41→14:32)
--- NOTE | 2018-09-09 01:19 | NUR ---
TD RN NOTES PT REFUSED AND REMOVED BIPAP. RT AT BEDSIDE. EXPLAINED RISK AND BENEFITS X3. PT STILL REFUSED.
[2018-09-09] MEDS: IPRATROPIUM NEB FS 0.5 MG/2.5 ML AMPUL.NEB NEB SCH ×6 (03:52→22:42)
[2018-09-09] MEDS: ALBUTEROL FS 2.5 MG/0.5 ML VIAL.NEB NEB SCH ×6 (03:52→22:42)
[2018-09-09 04:00] VITALS: BP 109/67
[2018-09-09] MEDS: MORPHINE SULFATE INJ 2 MG/ML DISP.SYRIN IV PRN ×3 (04:39→23:11)
[2018-09-09] MEDS: LINEZOLID 600 MG TABLET PO SCH ×2 (04:39→17:01)
--- NOTE | 2018-09-09 07:11 | NUR ---
TD RN NOTES NO ACUTE CHANGES NOTED DURING THE SHIFT. PT REFUSING BIPAP. ON AMIO DRIP @ .5MG/HR PATENT AND INTACT. NO RESPIRATORY DISTRESS NOTED. WILL ENDORSE TO THE AM NURSE FOR CONTINUITY OF CARE.
[2018-09-09 07:15] LABS: BASOPHILS % (AUTO) 0.2 % (0.0-2.0); EOSINOPHILS % (AUTO) 0.1 % (0.0-6.0); HEMATOCRIT 44 % (39-51); HEMOGLOBIN 13.6 g/dL (13.5-17.5); LYMPHOCYTES # (AUTO) 0.7 /CMM (0.8-4.8); LYMPHOCYTES % (AUTO) 11.7 % (20.0-44.0); MEAN CORPUSCULAR HGB CONC 31 g/dl (31.0-36.0); MEAN CORPUSCULAR VOLUME 95 fL (80-96); MONOCYTES # (AUTO) 0.5 /CMM (0.1-1.30); MONOCYTES % (AUTO) 8.2 % (2.0-12.0); NEUTROPHILS # (AUTO) 4.6 /CMM (1.8-8.9); NEUTROPHILS % (AUTO) 79.8 % (43.0-81.0); PLATELET COUNT (AUTO) 79 /CMM (150-450); RED BLOOD CELL COUNT(AUTO) 4.65 MIL/uL (4.5-6.0); WHITE BLOOD COUNT (AUTO) 5.8 K/uL (4.3-11.0)
--- NOTE | 2018-09-09 07:24 | NUR ---
RN NORMA NOTES RECEIVED BEDSIDE REPORT. PATIENT A/O X4 NO SIGNS OR SYMPTOMS OF RESPIRATORY DISTRESS ON 5 LTRS NASAL CANNULA SINUS TACHY 120'S ON MONITOR. NO C/O PAIN.STACK CATH DRAINING CLEAR YELLOW URINE. IV AMIODARONE RUNNING IN RFA @ 5 MG X 18HRS. REQUESTING TO SPEAK WITH PRIMARY MD. SAFETY PRECAUTIONS IN PLACE BED IN LOW POSITION CALL LIGHT WITHIN REACH WILL CONT TO MONITOR ACCORDINGLY.
[2018-09-09 07:27] LABS: CALCIUM, SERUM 9.2 mg/dL (8.5-10.1); CREATININE 0.9 mg/dL (0.6-1.3); MAGNESIUM 1.8 mg/dL (1.8-2.4); POTASSIUM 3.9 mmol/L (3.5-5.1)
--- NOTE | 2018-09-09 07:37 | NUR ---
CRITICAL LAB CO2 41WILL FOLLOW UP WITH
[2018-09-09] MEDS: INSULIN REGULAR, HUMAN 100 UNIT/ML 3 ML VIAL SQ PRN ×4 (07:40→21:27)
[2018-09-09] MEDS: BLOOD SUGAR DIAGNOSTIC 1 EACH STRIP IN SCH ×4 (07:40→21:25)
[2018-09-09 08:00] VITALS: BP 106/68
--- NOTE | 2018-09-09 08:03 | NUR ---
CORRECTION AMIODARONE RUNNING @ .5 MG
[2018-09-09] MEDS: methylPREDNISolone SOD SUCC 40 MG/ML VIAL IV SCH ×2 (08:32→17:00)
[2018-09-09] MEDS: PREGABALIN 100 MG CAPSULE PO SCH (08:33)
[2018-09-09] MEDS: DILTIAZEM HCL CD 180 MG PO SCH (08:33)
[2018-09-09] MEDS: GABAPENTIN 300 MG CAPSULE PO SCH ×3 (08:33→17:00)
[2018-09-09] MEDS: DOCUSATE SODIUM 100 MG CAPSULE PO SCH ×2 (08:33→17:00)
[2018-09-09] MEDS: TOPIRAMATE 100 MG TABLET PO SCH ×2 (08:33→17:00)
[2018-09-09] MEDS: LACTOBACILLUS RHAMNOSUS GG 1 EACH CAP.SPRINK PO SCH ×2 (08:33→17:00)
[2018-09-09] MEDS: FOLIC ACID 1 MG TABLET PO SCH (08:33)
[2018-09-09] MEDS: CLOTRIMAZOLE 1% 15 GM TUBE TP SCH ×2 (08:34→17:03)
[2018-09-09] MEDS: PROSOURCE / PROSTAT (PYXIS) 30 ML UDC PO SCH ×2 (08:34→17:02)
[2018-09-09] MEDS: INSULIN GLARGINE, 100 UNIT/ML CARTRIDGE SQ SCH ×2 (08:37→21:26)
[2018-09-09] MEDS ORDERED: NITROGLYCERIN 0.4 MG/TAB BOTTLE SL PRN (10:00)
--- NOTE | 2018-09-09 10:02 | NUR ---
CARDIOLOGY TO SEE PATIENT DR CARCAMO ORDER FOR STAT EKG - SINUS TACHY , TROPONIN LEVEL DRAWN AND 1X NITRO GLYCERIN SL GIVEN FOR CHEST PAIN.
[2018-09-09 11:29] LABS: BAND % (MANUAL) 4 % (0.0-5.0); LYMPHOCYTES % (MANUAL) 11 % (16-48); MONOCYTES % (MANUAL) 5 % (0-11.0); NEUTROPHILS % (MANUAL) 80 (42-76)
[2018-09-09 12:00] VITALS: BP 104/66
[2018-09-09 16:00] VITALS: BP 102/64
--- NOTE | 2018-09-09 16:11 | NUR ---
REMOVED LFA IV # 20 GAUGE INFILTRATED
[2018-09-09] MEDS: AMIODARONE HCL 200 MG TABLET PO SCH (17:01)
[2018-09-09] MEDS: RIVAROXABAN 10 MG TABLET PO SCH (17:02)
--- NOTE | 2018-09-09 18:52 | NUR ---
ITALIAN TEACHER NOTES NO SIGNIFICANT CHANGES THROUGHOUT SHIFT A/O X4 NO SIGNS OR SYMPTOMS OF RESPIRATORY DISTRESS ON 5 LTRS NASAL CANNULA NO ACUTE PAIN AT THIS TIME.CONTINUES TO BE SINUS TACHY ON MONITOR 120'S AMIODARONE COMPLETE CHANGED TO PO 400 MG BID. STACK CATH DRAINING CLEAR YELLOW URINE. TREATMENT DONE ORDERED. IVF SALINE LOC # 18 GAUGE TO RAC. NO EPISODES OF HYPER/HYPOGLYCEMIA. SAFETY PRECAUTIONS IN PLACE BED IN LOW POSITION CALL LIGHT WITHIN REACH.
--- NOTE | 2018-09-09 19:24 | NUR ---
report endorsed to noc
[2018-09-09 20:00] VITALS: BP 112/66
[2018-09-09] MEDS: TAMSULOSIN 0.4 MG CAP.SR.24H PO SCH (21:27)
[2018-09-09] MEDS: MAGNESIUM HYDROXIDE 30 ML UDC PO SCH (21:27)
[2018-09-10] VITALS: BP 108/64
[2018-09-10] MEDS: CEFEPIME 1 GM in IV D5W 50 ML IV SCH ×2 (01:22→12:28)
[2018-09-10] MEDS: IPRATROPIUM NEB FS 0.5 MG/2.5 ML AMPUL.NEB NEB SCH ×6 (03:50→23:23)
[2018-09-10] MEDS: ALBUTEROL FS 2.5 MG/0.5 ML VIAL.NEB NEB SCH ×6 (03:50→23:23)
[2018-09-10 04:00] VITALS: BP 100/62
[2018-09-10] MEDS: LINEZOLID 600 MG TABLET PO SCH ×2 (05:41→16:54)
[2018-09-10 06:57] LABS: BASOPHILS % (AUTO) 0.5 % (0.0-2.0); EOSINOPHILS % (AUTO) 0.1 % (0.0-6.0); HEMATOCRIT 42 % (39-51); HEMOGLOBIN 13.1 g/dL (13.5-17.5); LYMPHOCYTES # (AUTO) 0.5 /CMM (0.8-4.8); LYMPHOCYTES % (AUTO) 9.5 % (20.0-44.0); MEAN CORPUSCULAR HGB CONC 31 g/dl (31.0-36.0); MEAN CORPUSCULAR VOLUME 94 fL (80-96); MONOCYTES # (AUTO) 0.4 /CMM (0.1-1.30); MONOCYTES % (AUTO) 7.4 % (2.0-12.0); NEUTROPHILS # (AUTO) 4.5 /CMM (1.8-8.9); NEUTROPHILS % (AUTO) 82.5 % (43.0-81.0); PLATELET COUNT (AUTO) 75 /CMM (150-450); RED BLOOD CELL COUNT(AUTO) 4.53 MIL/uL (4.5-6.0); WHITE BLOOD COUNT (AUTO) 5.5 K/uL (4.3-11.0)
[2018-09-10 07:11] LABS: CREATININE 0.8 mg/dL (0.6-1.3); MAGNESIUM 1.8 mg/dL (1.8-2.4); PHOSPHORUS 2.6 mg/dL (2.5-4.9); POTASSIUM 3.8 mmol/L (3.5-5.1)
--- NOTE | 2018-09-10 07:32 | NUR ---
RN NORMA NOTES RECEIVED BEDSIDE REPORT. PATIENT A/O X4 NO SIGNS OR SYMPTOMS OF RESPIRATORY DISTRESS ON 5 LTRS NASAL CANNULA SINUS TACHY 120'S ON MONITOR. NO C/O PAIN.STACK CATH DRAINING CLEAR YELLOW URINE. IV TO RAC # 18 GAUGE SALINE LOCK SAFETY PRECAUTIONS IN PLACE BED IN LOW POSITION CALL LIGHT WITHIN REACH WILL CONT TO MONITOR ACCORDINGLY.
[2018-09-10] MEDS: INSULIN REGULAR, HUMAN 100 UNIT/ML 3 ML VIAL SQ PRN ×4 (07:54→21:12)
[2018-09-10] MEDS: BLOOD SUGAR DIAGNOSTIC 1 EACH STRIP IN SCH ×4 (07:54→21:08)
[2018-09-10 08:00] VITALS: BP 130/68
[2018-09-10] MEDS: methylPREDNISolone SOD SUCC 40 MG/ML VIAL IV SCH ×2 (09:05→16:52)
[2018-09-10] MEDS: LACTOBACILLUS RHAMNOSUS GG 1 EACH CAP.SPRINK PO SCH ×2 (09:05→16:52)
[2018-09-10] MEDS: TOPIRAMATE 100 MG TABLET PO SCH ×2 (09:06→16:52)
[2018-09-10] MEDS: DILTIAZEM HCL CD 180 MG PO SCH (09:06)
[2018-09-10] MEDS: DOCUSATE SODIUM 100 MG CAPSULE PO SCH ×2 (09:06→16:52)
[2018-09-10] MEDS: GABAPENTIN 300 MG CAPSULE PO SCH ×3 (09:06→16:52)
[2018-09-10] MEDS: AMIODARONE HCL 200 MG TABLET PO SCH ×2 (09:06→16:52)
[2018-09-10] MEDS: FOLIC ACID 1 MG TABLET PO SCH (09:06)
[2018-09-10] MEDS: PREGABALIN 100 MG CAPSULE PO SCH (09:06)
[2018-09-10] MEDS: INSULIN GLARGINE, 100 UNIT/ML CARTRIDGE SQ SCH ×2 (09:09→21:11)
[2018-09-10] MEDS: MORPHINE SULFATE INJ 2 MG/ML DISP.SYRIN IV PRN (09:21)
[2018-09-10] MEDS: PROSOURCE / PROSTAT (PYXIS) 30 ML UDC PO SCH ×2 (09:21→16:57)
[2018-09-10] MEDS: CLOTRIMAZOLE 1% 15 GM TUBE TP SCH ×2 (09:21→16:55)
[2018-09-10 09:53] LABS: LYMPHOCYTES % (MANUAL) 9 % (16-48); MONOCYTES % (MANUAL) 8 % (0-11.0); NEUTROPHILS % (MANUAL) 83 (42-76)
[2018-09-10 12:00] VITALS: BP 128/62
[2018-09-10] MEDS ORDERED: PRED20TA PO (13:50)
[2018-09-10] MEDS ORDERED: DILT180C66 PO (13:50)
[2018-09-10] MEDS ORDERED: LINE600T PO (13:50)
[2018-09-10] MEDS ORDERED: RIVA10TA PO (13:50)
[2018-09-10] MEDS ORDERED: AMIO200T7 PO (13:50)
[2018-09-10 16:00] VITALS: BP 133/70
[2018-09-10] MEDS: RIVAROXABAN 10 MG TABLET PO SCH (16:53)
--- NOTE | 2018-09-10 18:39 | NUR ---
DRESS OPERATOR NOTES NO SIGNIFICANT CHANGES THROUGHOUT SHIFT A/O X4 NO SIGNS OR SYMPTOMS OF RESPIRATORY DISTRESS ON 5 LTRS NASAL CANNULA NO ACUTE PAIN AT THIS TIME.CONTINUES TO BE SINUS TACHY ON MONITOR 120'S AMIODARONE COMPLETE CHANGED TO PO 400 MG BID. STACK CATH DRAINING CLEAR YELLOW URINE. TREATMENT DONE ORDERED. IVF SALINE LOC # 18 GAUGE TO RAC. NO EPISODES OF HYPER/HYPOGLYCEMIA.REPOSITIONED FOR COMFORT.PENDING D/C PLANNING WHEN STABLE. LABS WITHIN NORMAL RANGE. SAFETY PRECAUTIONS IN PLACE BED IN LOW POSITION CALL LIGHT WITHIN REACH.
--- NOTE | 2018-09-10 19:16 | NUR ---
REPORT ENDORSED TO NOC
[2018-09-10 20:00] VITALS: BP 137/85
[2018-09-10] MEDS: TAMSULOSIN 0.4 MG CAP.SR.24H PO SCH (21:08)
[2018-09-10] MEDS: MAGNESIUM HYDROXIDE 30 ML UDC PO SCH (21:08)
--- NOTE | 2018-09-10 21:20 | NUR ---
TD RN BLOOD GLUCOSE 247; INSULIN GIVEN ORDERED. PROVIDED PT WITH A SNACK.
[2018-09-11] VITALS: BP 119/74
[2018-09-11] MEDS: CEFEPIME 1 GM in IV D5W 50 ML IV SCH ×2 (01:50→12:17)
[2018-09-11] MEDS: IPRATROPIUM NEB FS 0.5 MG/2.5 ML AMPUL.NEB NEB SCH ×4 (03:17→15:49)
[2018-09-11] MEDS: ALBUTEROL FS 2.5 MG/0.5 ML VIAL.NEB NEB SCH ×4 (03:17→15:49)
[2018-09-11 04:00] VITALS: BP_SYST 119; BP_SYST 138; BP_DIAS 74; BP_DIAS 79
--- NOTE | 2018-09-11 07:30 | NUR ---
NORMA RN OPENING NOTES RECEIVED PT IN BED, A/OX4. ON NC @ 5-6LPM. O2 SAT WNL. ON TELE SR 95. PT C/O PAIN 8/10 IN LOWER EXTREMITIES. REQUESTING MORPHINE. F/C IN PLACE DRAINING CLEAR YELLOW URINE. BS WNL. RAC #18 SL. BED IN LOCKED/LOWEST POSITION. CALL LIGHT IN REACH. WILL CONT TO MONITOR.
[2018-09-11] MEDS: BLOOD SUGAR DIAGNOSTIC 1 EACH STRIP IN SCH ×3 (07:56→17:43)
[2018-09-11 08:00] VITALS: BP 135/80
[2018-09-11] MEDS: methylPREDNISolone SOD SUCC 40 MG/ML VIAL IV SCH (08:07)
[2018-09-11] MEDS: DOCUSATE SODIUM 100 MG CAPSULE PO SCH ×2 (08:08→16:53)
[2018-09-11] MEDS: LACTOBACILLUS RHAMNOSUS GG 1 EACH CAP.SPRINK PO SCH ×2 (08:08→16:54)
[2018-09-11] MEDS: DILTIAZEM HCL CD 180 MG PO SCH (08:08)
[2018-09-11] MEDS: FOLIC ACID 1 MG TABLET PO SCH (08:09)
[2018-09-11] MEDS: GABAPENTIN 300 MG CAPSULE PO SCH ×3 (08:09→16:52)
[2018-09-11] MEDS: TOPIRAMATE 100 MG TABLET PO SCH ×2 (08:09→16:52)
[2018-09-11] MEDS: PREGABALIN 100 MG CAPSULE PO SCH (08:09)
[2018-09-11] MEDS: AMIODARONE HCL 200 MG TABLET PO SCH ×2 (08:09→16:52)
[2018-09-11] MEDS: MORPHINE SULFATE INJ 2 MG/ML DISP.SYRIN IV PRN ×2 (08:10→17:01)
[2018-09-11] MEDS: PROSOURCE / PROSTAT (PYXIS) 30 ML UDC PO SCH ×2 (08:13→16:52)
[2018-09-11] MEDS: INSULIN GLARGINE, 100 UNIT/ML CARTRIDGE SQ SCH (08:17)
[2018-09-11] MEDS: CLOTRIMAZOLE 1% 15 GM TUBE TP SCH ×2 (08:29→17:00)
[2018-09-11 12:00] VITALS: BP 120/80
[2018-09-11] MEDS: INSULIN REGULAR, HUMAN 100 UNIT/ML 3 ML VIAL SQ PRN ×2 (12:22→18:06)
[2018-09-11] MEDS ORDERED: METOPROLOL TARTRATE INJ 5 MG/5 ML AMPUL IVP ONE (14:00)
[2018-09-11] MEDS ORDERED: PNEUMOCOCCAL 23-VAL P-SAC VAC 0.5 ML VIAL SQ ONE (14:00)
[2018-09-11 16:00] VITALS: BP 127/83
[2018-09-11 16:52] VITALS: BP 127/83
[2018-09-11] MEDS: RIVAROXABAN 10 MG TABLET PO SCH (16:53)
--- NOTE | 2018-09-11 18:30 | NUR ---
EGG SEPARATOR NOTES REPORT GIVEN TO VEGA TORRES AT [facility]. IV ON L HAND REMOVED. PT WILL BE TRANSFERRING WITH F/C. DISCHARGE INSTRUCTIONS GIVEN TO PT, PICS OF WOUNDS TAKEN, ALL NEEDS ATTENDED TO. PT LET FAMILY KNOW OF TRANSFER. BELONGINGS WITH PT AND LIST SIGNED.
[2018-09-12] MEDS ORDERED: methylPREDNISolone SOD SUCC 40 MG/ML VIAL IV SCH (09:00)
== END 2018-09-11 18:50 | DRG 871 ==
LOC: ER 13:11 → ICU 15:53 → TELE-TD 09-07 15:15 → TELE1 09-11 11:20
PROVIDERS: ADMIT Registered Nurse; ATTEND Nurse Practitioner Acute Care
PROC: 5A09457 Assistance with Respiratory Ventilation, 24-96 Consecutive Hours, Continuous Positive Airway Pressure (ICD-10-PCS; principal; 2018-09-03)
DX: A41.9 Sepsis, unspecified organism (principal); G92 Toxic encephalopathy; J96.01 Acute respiratory failure with hypoxia; J96.02 Acute respiratory failure with hypercapnia; J18.9 Pneumonia, unspecified organism; I50.33 Acute on chronic diastolic (congestive) heart failure; N17.0 Acute kidney failure with tubular necrosis; J96.21 Acute and chronic respiratory failure with hypoxia; J96.22 Acute and chronic respiratory failure with hypercapnia; E87.2 Acidosis; E44.0 Moderate protein-calorie malnutrition; I13.0 Hypertensive heart and chronic kidney disease with heart failure and stage 1 through stage 4 chronic kidney disease, or unspecified chronic kidney disease; J44.0 Chronic obstructive pulmonary disease with (acute) lower respiratory infection; J44.1 Chronic obstructive pulmonary disease with (acute) exacerbation; L03.116 Cellulitis of left lower limb; L03.115 Cellulitis of right lower limb; E66.2 Morbid (severe) obesity with alveolar hypoventilation; N39.0 Urinary tract infection, site not specified; I48.92 Unspecified atrial flutter; J98.11 Atelectasis; L03.311 Cellulitis of abdominal wall; E11.22 Type 2 diabetes mellitus with diabetic chronic kidney disease; E11.40 Type 2 diabetes mellitus with diabetic neuropathy, unspecified; I48.91 Unspecified atrial fibrillation; M06.9 Rheumatoid arthritis, unspecified; R13.10 Dysphagia, unspecified; Z91.14 Patient's other noncompliance with medication regimen; Z87.891 Personal history of nicotine dependence; Z79.899 Other long term (current) drug therapy; Z98.890 Other specified postprocedural states; L30.4 Erythema intertrigo; Z79.4 Long term (current) use of insulin; Z79.01 Long term (current) use of anticoagulants; N18.9 Chronic kidney disease, unspecified; Z79.51 Long term (current) use of inhaled steroids; Z79.02 Long term (current) use of antithrombotics/antiplatelets; D69.6 Thrombocytopenia, unspecified; E87.5 Hyperkalemia; E87.6 Hypokalemia; I87.8 Other specified disorders of veins; L98.9 Disorder of the skin and subcutaneous tissue, unspecified; S20.319A Abrasion of unspecified front wall of thorax, initial encounter; S80.211A Abrasion, right knee, initial encounter; S40.219A Abrasion of unspecified shoulder, initial encounter; X58.XXXA Exposure to other specified factors, initial encounter; Y92.129 Unspecified place in nursing home as the place of occurrence of the external cause; M79.3 Panniculitis, unspecified; I45.10 Unspecified right bundle-branch block; B96.89 Other specified bacterial agents as the cause of diseases classified elsewhere
CPT/HCPCS: 36415; 36600; 71045-TC; 80048-TC; 80053-TC; 80076-TC; 80202-TC; 81000-TC; 82550-TC; 82570-TC; 82728-TC; 82803-TC; 82962-TC; 83540-TC; 83605-TC; 83735-TC; 83880; 83970; 84100-TC; 84155; 84155-TC; 84165; 84300-TC; 84484-TC; 85025-TC; 87040-TC; 87081-TC; 87086-TC; 87186-TC; 90732; 94760-TC; 94799-TC; 97112-TC; 97530-TC; 99082-TC; A7526; G0378; J0282; J0456; J0692; J1120; J1644; J1815; J1940; J2270; J2405; J2543; J2920; J2930; J3370; J3475; J3490; J7040; J7050; J7060

== ENCOUNTER 2021-01-14 16:09 | Inpatient (IN) | payer MEDICARE, OTHER ==
[~2021-01-14] VITALS: Ht 177.8 cm; Wt 156.0 kg
[~2021-01-14 16:09] MED LIST changes: +*INS NOVA SQ; +ACET-73 PO; +AMIO200T7 PO; -CLON1TAB12 PO; +DILT180C66 PO; -DULA1.5P SQ; +ENOX40DI SQ; -GLYB5TAB7 PO; +LINE600T12 PO; +MAG355OR18 PO; +MAGN400O6 PO; -MECL-102 PO; +MECL-159 PO; -NUT.237L45 PO; +PRED20TA PO; +PROP60CA38 PO; -PROP60CA6 PO; +PROT946L PO; +RIVA10TA PO
--- NOTE | 2021-01-14 16:33 | NUR ---
DARIA BARAJAS FROM [facility],CHEST PAIN AND DIZZINESS SINCE YESTERDAY. RATES PAIN 5/10. IN ROOM AIR AND DENIES SOB. RESPIRATION REGULAR AND UNLABORED. ATTACHED TO THE MONITOR. WILL CONTINUE TO MONITOR
--- NOTE | 2021-01-14 16:48 | NUR ---
DR CORRALES AT THE BEDSIDE
--- NOTE | 2021-01-14 16:48 | NUR ---
STARTED LINE, BLOOD SPECIMEN COLLECTED AND SENT TO THE LAB. THE LINE IS SALINE LOCKED.
--- NOTE | 2021-01-14 16:54 | NUR ---
X-RAY AT THE BEDSIDE
[2021-01-14 17:12] LABS: BASOPHILS % (AUTO) 0.7 % (0.0-2.0); HEMATOCRIT 44 % (39-51); HEMOGLOBIN 14.5 g/dL (13.5-17.5); LYMPHOCYTES # (AUTO) 1.2 K/uL (0.8-4.8); LYMPHOCYTES % (AUTO) 19.9 % (20.0-44.0); MEAN CORPUSCULAR HGB CONC 33 g/dl (31.0-36.0); MEAN CORPUSCULAR VOLUME 94 fL (80-96); MONOCYTES # (AUTO) 0.4 K/uL (0.1-1.30); NEUTROPHILS % (AUTO) 68.4 % (43.0-81.0); PLATELET COUNT (AUTO) 95 K/uL (150-450); RED BLOOD CELL COUNT(AUTO) 4.72 MIL/uL (4.5-6.0); WHITE BLOOD COUNT (AUTO) 5.8 K/uL (4.3-11.0)
--- NOTE | 2021-01-14 17:30 | NUR ---
[facility] CALLED PATROL COMMUNITY SERVICE OFFICER PAGED.
[2021-01-14 17:35] LABS: ALANINE AMINOTRANSFERASE 25 U/L (12-78); ALBUMIN 2.7 g/dL (3.4-5.0); ALKALINE PHOSPHATASE 128 U/L (46-116); ASPARTATE AMINOTRANSFERASE 26 U/L (15-37); BILIRUBIN,DIRECT 0.1 mg/dL (0.0-0.2); BILIRUBIN,TOTAL 0.4 mg/dL (0.2-1.0); CALCIUM, SERUM 8.6 mg/dL (8.5-10.1); CARBON DIOXIDE 26 mmol/L (21-32); CHLORIDE 98 mmol/L (98-107); POTASSIUM 4.6 mmol/L (3.5-5.1); SODIUM SERUM 132 mmol/L (136-145); TOTAL PROTEIN, SERUM 7.1 g/dL (6.4-8.2); UREA NITROGEN, BLOOD 12 mg/dL (7-18)
[2021-01-14 17:36] LABS: GLUCOSE 482 mg/dL (74-106)
[2021-01-14 18:25] LABS: EOSINOPHILS % (MANUAL) 4 % (0-4); LYMPHOCYTES % (MANUAL) 22 % (16-48); MONOCYTES % (MANUAL) 11 % (0-11.0); NEUTROPHILS % (MANUAL) 63 (42-76)
--- NOTE | 2021-01-14 18:39 | NUR ---
COVID SWAB DONE AND SENT TO THE LAB
[2021-01-14] MEDS ORDERED: ASPIRIN 325 MG TABLET PO ONE (19:00)
[2021-01-14] MEDS ORDERED: NITROGLYCERIN PACKET 1 GM PACKET TOP ONE (19:00)
[2021-01-14] MEDS ORDERED: INSULIN LISPRO/ASPART 100 UNIT/ML CARTRIDGE SQ ONE (19:00)
[2021-01-14] MEDS ORDERED: NITROGLYCERIN PACKET 1 GM PACKET ONE (19:03)
[2021-01-14] MEDS ORDERED: INSULIN REGULAR, HUMAN 100 UNIT/ML 10 ML VIAL ONE (19:03)
[2021-01-14] MEDS ORDERED: ASPIRIN 325 MG TABLET ONE (19:03)
--- NOTE | 2021-01-14 19:22 | NUR ---
Radha sanchez in [facility] - 01/14/21 at 1922 by ERIKA [id number]
--- NOTE | 2021-01-14 19:28 | NUR ---
REPORT GIVEN TO NURSE GONZALEZ
--- NOTE | 2021-01-14 19:29 | NUR ---
THE PATIENT IS TRANSFERED TO ROOM 113 IN STABLE CONDITION AND PER ACLS POLICY.
[2021-01-14 20:00] VITALS: BP 129/77
--- NOTE | 2021-01-14 20:00 | NUR ---
RN ADMITTING NOTE PT RECEIVED FROM ER, PT REFUSES HOSPITAL GOWN, PT PLACED ON MONITOR, VSS. PHOTO WOUND DOCUMENTATION DONE. PT ON ROOM AIR, NSR ON TELE. IV SITE FLUSHED, INTACT RAC #18 PT USES URINAL, AMBULATORY, BUT EDUCATED PT ON USE OF CALL LIGHT WHEN AMBULATING TO RESTROOM. PT BELONGINGS AT BEDSIDE. SAFETY MEASURES IN PLACE HOB ELEVATED SIDE RAILS UP X2 BED LOCKED IN LOWEST POSITION, CALL LIGHT WITHIN REACH WILL CONT TO MONITOR
[2021-01-14] MEDS ORDERED: MAGNESIUM HYDROXIDE 30 ML UDC PO PRN (23:00)
[2021-01-14] MEDS ORDERED: ACETAMINOPHEN 325 MG TABLET PO PRN (23:00)
[2021-01-14] MEDS ORDERED: DEXTROSE 50%-WATER 50 ML DISP.SYRIN IV PRN (23:00)
[2021-01-14] MEDS ORDERED: ENOXAPARIN SODIUM 40 MG/0.4 ML DISP.SYRIN SQ SCH (23:00)
[2021-01-14] MEDS ORDERED: MAG HYDROX/AL HYDROX/SIMETH 30 ML UDC PO PRN (23:00)
[2021-01-14] MEDS ORDERED: Z GUARD REMEDY 2 OZ OINT TP PRN (23:00)
[2021-01-14] MEDS ORDERED: ONDANSETRON HCL/PF 4 MG/2 ML VIAL IVP PRN (23:00)
--- NOTE | 2021-01-14 23:54 | NUR ---
RN NOTE-BLOOD SUGAR ACCU CHECK DONE AND IS 303 AT THIS TIME, PER JOE DOE TO COVER USING ORDERED SSI AT THIS TIME.
[2021-01-14] MEDS: *INSULIN REGULAR(HUMULIN R)HUM 100 UNIT/ML VIAL SQ PRN (23:57)
[2021-01-15] VITALS: BP 101/59
[2021-01-15] MEDS: ZOLPIDEM TARTRATE 5 MG TABLET PO PRN ×2 (00:40→21:45)
--- NOTE | 2021-01-15 00:40 | NUR ---
RN NOTE PT REPORTS DECREASED PAIN LEVEL, EFFECTIVE MORPHINE, PT REQUESTS SLEEPING MEDICATION, PRN AMBIEN ADMINISTERED ORDERED. WILL CONT TO MONITOR CLOSELY.
[2021-01-15 04:00] VITALS: BP 115/66
[2021-01-15] MEDS: MORPHINE SULFATE INJ 2 MG/ML DISP.SYRIN IV PRN ×5 (06:43→21:28)
[2021-01-15 06:50] LABS: BASOPHILS % (AUTO) 0.8 % (0.0-2.0); EOSINOPHILS % (AUTO) 3.4 % (0.0-6.0); HEMATOCRIT 42 % (39-51); HEMOGLOBIN 14.1 g/dL (13.5-17.5); LYMPHOCYTES # (AUTO) 1.1 K/uL (0.8-4.8); LYMPHOCYTES % (AUTO) 20.2 % (20.0-44.0); MEAN CORPUSCULAR HGB CONC 33 g/dl (31.0-36.0); MEAN CORPUSCULAR VOLUME 93 fL (80-96); MONOCYTES # (AUTO) 0.5 K/uL (0.1-1.30); MONOCYTES % (AUTO) 8.7 % (2.0-12.0); NEUTROPHILS # (AUTO) 3.7 K/uL (1.8-8.9); NEUTROPHILS % (AUTO) 66.9 % (43.0-81.0); PLATELET COUNT (AUTO) 79 K/uL (150-450); RED BLOOD CELL COUNT(AUTO) 4.54 MIL/uL (4.5-6.0); WHITE BLOOD COUNT (AUTO) 5.5 K/uL (4.3-11.0)
--- NOTE | 2021-01-15 06:51 | NUR ---
RN NOTE NO SIGNIFICANT CHANGE IN PT CONDITION, PT INDEPENDENT WITH HYGIENE AND TURN/REPOSITION. JUST GIVEN MORPHINE FOR PAIN, PT C/O OF GENERALIZED PAIN AND MINIMAL CHEST PAIN. ALL NEEDS ATTENDED. SAFETY MEASURES IN PLACE. WILL ENDORSE TO DAY SHIFT RN FOR CONTINUATION OF CARE.
[2021-01-15 07:03] LABS: CALCIUM, SERUM 8.8 mg/dL (8.5-10.1); CREATININE 0.9 mg/dL (0.6-1.3); MAGNESIUM 2.1 mg/dL (1.8-2.4); POTASSIUM 4.5 mmol/L (3.5-5.1)
--- NOTE | 2021-01-15 07:23 | NUR ---
NURSE OPENING NOTE. PATIENT IN STABLE CONDITION WITH NO SIGNS OF DISTRESS. MORPHINE WAS GIVEN PER FINISH OFF OPERATOR NURSE. PATIENT IS AMBULATORY/ BED REST. PRESENT WITH SIGN OF SKIN INJURY ON RIGHT SHOULDER, UMBILICUS DISCOLORATION, LEFT BREAST FOLD REDNESS. WILL FOLLOW UP AM LABS. ALL SAFETY MEASURE IN PLACE. BED ON LOWEST POSITION WITH HOB ELEVATED AND 3 SIDE RAIL UP. CALL LIGHT WITHIN REACH. WILL CONTINUE TO MONITOR.
[2021-01-15] MEDS: BLOOD SUGAR DIAGNOSTIC 1 EACH STRIP IN SCH ×4 (07:44→21:59)
[2021-01-15] MEDS: PANTOPRAZOLE 40 MG TABLET.DR PO SCH (07:44)
[2021-01-15] MEDS: INSULIN REGULAR, HUMAN 100 UNIT/ML 3 ML VIAL SQ PRN ×3 (07:50→16:49)
[2021-01-15 08:00] VITALS: BP 126/71
[2021-01-15] MEDS ORDERED: HYDR4TAB4 PO (08:11)
[2021-01-15] MEDS ORDERED: INSU100V42 SUBCUT (08:11)
[2021-01-15] MEDS ORDERED: ATOR40TA PO (08:11)
[2021-01-15] MEDS ORDERED: CARV12.5 PO (08:11)
[2021-01-15] MEDS ORDERED: ZOLP5TAB2 PO (08:11)
[2021-01-15] MEDS ORDERED: BACL10TA PO (08:11)
[2021-01-15] MEDS ORDERED: APIX5TAB PO (08:11)
[2021-01-15] MEDS ORDERED: ASPI-1169 PO (08:11)
[2021-01-15] MEDS ORDERED: BUME1TAB9 PO (08:11)
[2021-01-15] MEDS ORDERED: DIVA-78 PO (08:11)
[2021-01-15] MEDS ORDERED: DULA1.5P SQ (08:11)
[2021-01-15] MEDS ORDERED: EREN70AU2 SQ (08:11)
[2021-01-15] MEDS ORDERED: LISI2.5T2 PO (08:11)
[2021-01-15] MEDS ORDERED: MULT-188 PO (08:11)
[2021-01-15] MEDS ORDERED: POLY17PO4 PO (08:11)
[2021-01-15] MEDS ORDERED: ACET325T53 PO (08:11)
[2021-01-15] MEDS ORDERED: INSU100V10 SQ (08:11)
[2021-01-15 08:22] LABS: THYROID STIMULATING HORMONE 1.669 uIU/mL (0.358-3.74)
[2021-01-15] MEDS: ASPIRIN 81 MG TAB.CHEW PO SCH (08:46)
--- NOTE | 2021-01-15 09:06 | NUR ---
WOUND CARE CONSULT: PT PRESENTS WITH SOME SCRATCHES/EXCORATED AREAS ON RT SHOULDER AREA, REDNESS TO UMBILICUS AND BREASTFOLD, PRESENT ON ADMISSION. PT ABLE TO REPOSITION IN BED. DR CABALLERO FOLLOWS PT FOR SKIN/WOUND TREATMENT. DEFER TO SURGICAL TEAM. WILL SEE PRN. DOMINGO IN AGREEMENT WITH PLAN OF CARE. Addendum: 01/15/21 at 0909 by NIKITA BOSWELL WNDNU PT DENIES NEED FOR BARIATRIC BED.
--- NOTE | 2021-01-15 11:35 | NUR ---
NURSE NOTE IV DRESSING CHANGED. BLOOD RETURN AND FLUSH WELL. ON H/L.
[2021-01-15 12:00] VITALS: BP 120/73
[2021-01-15] MEDS ORDERED: HOME MED MISCELLANEOUS XX SCH (12:00)
[2021-01-15] MEDS ORDERED: HYDROMORPHONE HCL 2 MG TABLET PO PRN (12:00)
--- NOTE | 2021-01-15 12:22 | NUR ---
NURSE NOTE PATIENT WAS PICKED UP FOR CT OF THE HEART.
[2021-01-15] MEDS ORDERED: METOPROLOL TARTRATE INJ 5 MG/5 ML AMPUL IVP PRN (12:30)
[2021-01-15] MEDS ORDERED: NITROGLYCERIN 0.4 MG/TAB BOTTLE SL ONE (12:30)
[2021-01-15] MEDS ORDERED: IV NS 0.9% 250 ML IV ONE (12:31)
[2021-01-15] MEDS ORDERED: IOHEXOL-350 100 ML VIAL IV ONE (12:31)
[2021-01-15] MEDS ORDERED: NITROGLYCERIN 0.4 MG/TAB BOTTLE ONE (12:33)
[2021-01-15] MEDS ORDERED: METOPROLOL TARTRATE INJ 5 MG/5 ML AMPUL ONE (12:33)
--- NOTE | 2021-01-15 13:00 | NUR ---
consented to CTA heart; denies CP or sob; all questions answered, new peipehral IB 818 inserted without event on R upper arm; Metoprolol 5mg IVP every 5 minutes x 2 doses ; NTG 0.4 mg SL given; pt tolerated procedure advised to not take any Metformin x 48 hours ; report given to Kaleb FERRARI, aware of need to reinforce instructions to pt about not taking metformin x 48 hours; sent back to floor via bed
[2021-01-15] MEDS: INSULIN GLARGINE, 100 UNIT/ML CARTRIDGE SQ SCH ×2 (13:29→21:50)
[2021-01-15] MEDS: CLOTRIMAZOLE/BETAMETASONE DIPROPIONATE 15 GM TUBE TP SCH ×2 (15:50→16:59)
[2021-01-15 16:00] VITALS: BP 106/57
[2021-01-15] MEDS: DOCUSATE SODIUM 100 MG CAPSULE PO SCH (16:38)
[2021-01-15] MEDS: DIVALPROEX SODIUM 500 MG TABLET.DR PO SCH (16:39)
[2021-01-15] MEDS: BACLOFEN (10 MG) 10 MG TABLET PO SCH (16:39)
[2021-01-15] MEDS: CARVEDILOL 12.5 MG TABLET PO SCH (16:39)
[2021-01-15] MEDS: APIXABAN 5 MG TABLET PO SCH (16:44)
[2021-01-15] MEDS: INSULIN ASPART/LISPRO 100 UNIT/ML CARTRIDGE SQ SCH (16:47)
--- NOTE | 2021-01-15 19:14 | NUR ---
NURSE CLOSING NOTE PATIENT REMAIN IN STABLE CONDITION WITH NO SIGN OF DISTRESS THROUGH OUT SHIFT. WOUND CONSULT WAS SEEN AND MEDICATION WAS ORDER FOR SKIN. ECHOCARDIOGRAM WAS DONE. CT ANGIO OF THE HEART WAS DONE. NEED TO BE EVALUATE BY PT. MORPHINE WAS GIVEN FOR PAIN. ALL SAFETY MEASURE IN PLACE. PROPER INSOLATION IN PLACE. BED ON LOWEST POSITION WITH HOB ELEVATED AND 3 SIDE RAIL UP. CALL LIGHT WITHIN REACH. WILL CONTINUE TO MONITOR AND REPORT TO ON COMING NURSE.
[2021-01-15 20:00] VITALS: BP 96/59
--- NOTE | 2021-01-15 20:00 | NUR ---
FARE REGISTER REPAIRER NOTE. RECEIVED PATIENT IN BED IN STABLE CONDITION A/OX4 AMBULATORY . TELE READING SR -90 ON THE MONITOR ON R/A NO SIGNS OF DISTRESS. NO SOB NOTED . ALL DUE MEDS GIVEN ORDERED. WITH RIGHT AC g#18 RIGHT FA g#18 ALL INTACT AND PATENT . ALL SAFETY MEASURE IN PLACE. BED ON LOWEST POSITION WITH HOB ELEVATED AND 3 SIDE RAIL UP. CALL LIGHT WITHIN REACH. ALL NEEDS MEET ,WILL CONTINUE TO MONITOR.
[2021-01-15] MEDS: ATORVASTATIN 40 MG TABLET PO SCH (21:42)
[2021-01-15] MEDS: *INSULIN REGULAR(HUMULIN R)HUM 100 UNIT/ML VIAL SQ PRN (21:58)
[2021-01-15] MEDS ORDERED: ZOLPIDEM TARTRATE 5 MG TABLET PO SCH (22:00)
--- NOTE | 2021-01-15 22:02 | NUR ---
television producer notes Blood sugarat 10pm is 184 -50 units lantus given as ordered and 3 units of regular insulin given per sliding scale
[2021-01-16] VITALS: BP 102/59
[2021-01-16] MEDS: MORPHINE SULFATE INJ 2 MG/ML DISP.SYRIN IV PRN ×5 (01:53→20:54)
[2021-01-16 04:00] VITALS: BP 112/69
--- NOTE | 2021-01-16 06:41 | NUR ---
CLIENT APPLICATION SUPPORT ENGINEER NOTES IN BED AWAKE ,NO SIGNIFICANT CHANGE IN PT CONDITION, AT THIS TIME JUST GIVEN MORPHINE FOR PAIN, PT C/O OF GENERALIZED PAIN AT 0610. ALL NEEDS ATTENDED TOO. SAFETY MEASURES IN PLACE. WILL ENDORSE TO DAY SHIFT RN FOR CONTINUITY OF CARE.
[2021-01-16] MEDS: BLOOD SUGAR DIAGNOSTIC 1 EACH STRIP IN SCH ×4 (07:04→21:15)
--- NOTE | 2021-01-16 07:23 | NUR ---
RN OPENING NOTE PATIENT REMAIN IN STABLE CONDITION WITH OCCASIONAL PAIN WHICH HAVE RESOLVE BY GIVEN MORPHINE. PATIENT TOLERATE WELL. WILL CONTINUE TO MONITOR BLOOD SUGAR. PENDING PT EVALUATION. PROPER INSOLATION PRECAUTION IN PLACE. ALL SAFETY MEASURE IN PLACE. BED ON LOWEST POSITION WITH 3 SIDE RAIL UP. CALL LIGHT WITHIN REACH. WILL CONTINUE TO MONITOR.
[2021-01-16] MEDS: PANTOPRAZOLE 40 MG TABLET.DR PO SCH (07:34)
[2021-01-16] MEDS: INSULIN REGULAR, HUMAN 100 UNIT/ML 3 ML VIAL SQ PRN ×3 (07:45→17:41)
[2021-01-16 08:00] VITALS: BP 117/68
[2021-01-16 08:14] LABS: BASOPHILS # (AUTO) 0.1 K/uL (0.0-0.2); EOSINOPHILS % (AUTO) 4.4 % (0.0-6.0); HEMATOCRIT 46 % (39-51); HEMOGLOBIN 15.3 g/dL (13.5-17.5); LYMPHOCYTES # (AUTO) 0.9 K/uL (0.8-4.8); LYMPHOCYTES % (AUTO) 12.2 % (20.0-44.0); MEAN CORPUSCULAR HGB CONC 33 g/dl (31.0-36.0); MEAN CORPUSCULAR VOLUME 94 fL (80-96); MONOCYTES # (AUTO) 0.4 K/uL (0.1-1.30); MONOCYTES % (AUTO) 5.3 % (2.0-12.0); NEUTROPHILS # (AUTO) 5.4 K/uL (1.8-8.9); NEUTROPHILS % (AUTO) 77.1 % (43.0-81.0); PLATELET COUNT (AUTO) 101 K/uL (150-450); RED BLOOD CELL COUNT(AUTO) 4.91 MIL/uL (4.5-6.0)
[2021-01-16 08:42] LABS: CALCIUM, SERUM 8.4 mg/dL (8.5-10.1); CREATININE 1.1 mg/dL (0.6-1.3); MAGNESIUM 1.7 mg/dL (1.8-2.4); POTASSIUM 4.5 mmol/L (3.5-5.1)
[2021-01-16] MEDS: MULTIVITAMINS,THERAGRAN 1 UDTAB TABLET PO SCH (08:56)
[2021-01-16] MEDS: DIVALPROEX SODIUM 500 MG TABLET.DR PO SCH ×2 (08:56→16:43)
[2021-01-16] MEDS: CARVEDILOL 12.5 MG TABLET PO SCH ×2 (08:57→16:44)
[2021-01-16] MEDS: LISINOPRIL (5MG) 5 MG TABLET PO SCH (08:58)
[2021-01-16] MEDS: FUROSEMIDE 40 MG TABLET PO SCH (08:58)
[2021-01-16] MEDS: BACLOFEN (10 MG) 10 MG TABLET PO SCH ×2 (08:58→16:41)
[2021-01-16] MEDS: ASPIRIN 81 MG TAB.CHEW PO SCH (08:58)
[2021-01-16] MEDS: DOCUSATE SODIUM 100 MG CAPSULE PO SCH ×2 (08:58→16:43)
[2021-01-16] MEDS: POLYETHYLENE GLYCOL 3350 17 GM POWD.PACK PO SCH (08:59)
[2021-01-16] MEDS: APIXABAN 5 MG TABLET PO SCH ×2 (09:00→16:45)
[2021-01-16] MEDS ORDERED: BUMETANIDE (1 MG) 1 MG TABLET PO SCH (09:00)
[2021-01-16] MEDS: INSULIN GLARGINE, 100 UNIT/ML CARTRIDGE SQ SCH ×2 (09:01→21:22)
[2021-01-16] MEDS: CLOTRIMAZOLE/BETAMETASONE DIPROPIONATE 15 GM TUBE TP SCH ×3 (09:10→21:19)
[2021-01-16] MEDS: MUPIROCIN OINT 2% 22 GM TUBE NS SCH ×2 (11:43→21:25)
[2021-01-16 12:00] VITALS: BP 137/83
--- NOTE | 2021-01-16 14:02 | NUR ---
RN NOTE PATIENT WILL BE DISCHARGE TOMORROW (01/17) @ 10:00AM PER RAG SORTER AND CUTTER. PATIENT HAVE BEEN INFORMED.
[2021-01-16 16:00] VITALS: BP 112/62
[2021-01-16] MEDS: INSULIN ASPART/LISPRO 100 UNIT/ML CARTRIDGE SQ SCH (17:42)
--- NOTE | 2021-01-16 18:10 | NUR ---
RN CLOSING NOTE Addendum: 01/16/21 at 1814 by ERICH LOPEZ RN RN CLOSING NOTE PATIENT MAINTAIN STABLE CONDITION THROUGH OUT SHIFT. REMAIN ON CASKET ASSEMBLER. TOOK ALL MEDICATIONS. PATIENT READY TO BE DISCHARGE TOMORROW. UNSURE OF WHAT IS THE ANDROID FRAMEWORK DEVELOPER TIME. PROPER PRECAUTION IN PLACE. BED ON LOWEST POSITION WITH HOB ELEVATED AND 3 SIDE RAIL UP. CALL LIGHT WITHIN REACH. WILL CONTINUE TO MONITOR AND REPORT TO ON COMING NURSE.
--- NOTE | 2021-01-16 19:15 | NUR ---
RN NOTES RECEIVED REPORT FROM MORNING NURSE. PATIENT IN BED A/O X 4. NO SOB NO DISTRESS. WITH IV ACCESS ON R AC G# 18, RA G# 20 PATENT FLUSHES WELL. NO INFILTRATION NOTED. ALL SAFETY MEASURES IN PLACE. HOB ELEVATED, CALL LIGHT WITHIN REACH. WILL CONTINUE TO MONITOR THE PATIENT
[2021-01-16 20:00] VITALS: BP 120/72
[2021-01-16] MEDS: ATORVASTATIN 40 MG TABLET PO SCH (21:15)
[2021-01-16] MEDS: ZOLPIDEM TARTRATE 5 MG TABLET PO PRN (21:30)
--- NOTE | 2021-01-16 22:00 | NUR ---
RN NOTES BS 207 MG/DL LANTUS 50 UNITS SQ GIVEN. WILL CONTINUE TO MONITOR
[2021-01-17] VITALS (7 sets, daily range): BP systolic 109–138; BP diastolic 59–78
[2021-01-17] MEDS: MORPHINE SULFATE INJ 2 MG/ML DISP.SYRIN IV PRN ×4 (01:04→15:53)
--- NOTE | 2021-01-17 06:31 | NUR ---
RN NOTES PATIENT REMAINS STABLE THE WHOLE SHIFT NO SIGNIFICANT CHANGES IN HEALTH CONDITION. NO SOB, NO DISTRESS NOTED THIS SHIFT.ALL DUE MEDS GIVEN ORDERED. ALL SAFETY MEASURES IN PLACE, BED ON LOWEST POSITION AND LOCKED. HOB ELEVATED, CALL LIGHT WITHIN REACH. FOR D/C TO [facility] TODAY.ALL NEEDS ATTENDED. ENDORSED
[2021-01-17] MEDS: PANTOPRAZOLE 40 MG TABLET.DR PO SCH (07:46)
[2021-01-17] MEDS: BLOOD SUGAR DIAGNOSTIC 1 EACH STRIP IN SCH ×2 (07:57→12:00)
[2021-01-17] MEDS: *INSULIN REGULAR(HUMULIN R)HUM 100 UNIT/ML VIAL SQ PRN (07:59)
[2021-01-17] MEDS: DOCUSATE SODIUM 100 MG CAPSULE PO SCH (08:23)
[2021-01-17] MEDS: MUPIROCIN OINT 2% 22 GM TUBE NS SCH (08:23)
[2021-01-17] MEDS: FUROSEMIDE 40 MG TABLET PO SCH (08:23)
[2021-01-17] MEDS: ASPIRIN 81 MG TAB.CHEW PO SCH (08:23)
[2021-01-17] MEDS: MULTIVITAMINS,THERAGRAN 1 UDTAB TABLET PO SCH (08:23)
[2021-01-17] MEDS: BACLOFEN (10 MG) 10 MG TABLET PO SCH (08:24)
[2021-01-17] MEDS: DIVALPROEX SODIUM 500 MG TABLET.DR PO SCH (08:24)
[2021-01-17] MEDS: CARVEDILOL 12.5 MG TABLET PO SCH (08:25)
[2021-01-17] MEDS: LISINOPRIL (5MG) 5 MG TABLET PO SCH (08:25)
[2021-01-17] MEDS: APIXABAN 5 MG TABLET PO SCH (08:28)
--- NOTE | 2021-01-17 09:22 | NUR ---
followup with cm bed for pt has discharge order,per cm they are working on it.
--- NOTE | 2021-01-17 10:42 | NUR ---
PER [facility] PCR NEGATIVE. MADE AWARE.
[2021-01-17] MEDS: POLYETHYLENE GLYCOL 3350 17 GM POWD.PACK PO SCH (10:44)
[2021-01-17] MEDS ORDERED: INSULIN GLARGINE, 100 UNIT/ML CARTRIDGE SQ SCH (11:00)
[2021-01-17] MEDS: INSULIN REGULAR, HUMAN 100 UNIT/ML 3 ML VIAL SQ PRN (14:31)
--- NOTE | 2021-01-17 16:37 | NUR ---
PATIENT D/C TO SNF, AWARE OF PATIENT TO ARRIVE BETWEEN 4:30-5:30 PM, TIME OF DEPARTURE 1635 PM SAFE TRANSFER FROM BED TO [facility], PATIENT ABLE TO STAND AND AMBULATE WITH 1 PERSON ASSIST TO RLAKE POWELL, IV'S D/C SIGNIFICANT AMOUNT OF BLEEDING IN POSTERIOR LOWER RIGHT ARM NOTED, HELD FOR SEVERAL MINUTES TO CLOT AND BANDAGED WELL FIT WITH FULL GAUZE AND TAPE FOR SECURITY, ALL MD ORDERS CARRIED OUT, NO ADVERSE REACTIONS TO ANY MEDICATIONS, RESPONDING TO INSULIN DOSES AND EFFECTIVE, PAIN RELIEF OF MORPHINE GIVEN IV EFFECTIVE, ENDORSED TO OFFICE RECEPTIONIST HE HAD HIS MORPHINE DOSE AND TO BE CAUTIOUS OF ANY WEAKNESS TO PREVENT FALL, SAFE TRANSFER FROM HOSPITAL TO AMBULANCE. ALL BELONGINGS ATTENDED TO AND PROVIDED IN [place]Y TO GO PLASTIC BAG AND VERIFIED BY PATIENT THAT HE HAS ALL OF HIS BELONGINGS.
== END 2021-01-17 20:01 | DRG 205 ==
LOC: ER 16:14 → TELE1 19:30 → MEDSG1 01-17 09:45
PROVIDERS: ADMIT Student in an Organized Health Care Education/Training Program; ATTEND Nurse Practitioner Acute Care
DX: M94.0 Chondrocostal junction syndrome [Tietze] (principal); J96.22 Acute and chronic respiratory failure with hypercapnia; E44.0 Moderate protein-calorie malnutrition; E87.1 Hypo-osmolality and hyponatremia; I50.32 Chronic diastolic (congestive) heart failure; D68.59 Other primary thrombophilia; Z68.42 Body mass index [BMI] 45.0-49.9, adult; N39.0 Urinary tract infection, site not specified; E11.65 Type 2 diabetes mellitus with hyperglycemia; E11.40 Type 2 diabetes mellitus with diabetic neuropathy, unspecified; I11.0 Hypertensive heart disease with heart failure; I25.10 Atherosclerotic heart disease of native coronary artery without angina pectoris; J44.9 Chronic obstructive pulmonary disease, unspecified; Z20.822 Contact with and (suspected) exposure to COVID-19; M06.9 Rheumatoid arthritis, unspecified; L30.4 Erythema intertrigo; N40.0 Benign prostatic hyperplasia without lower urinary tract symptoms; Z98.890 Other specified postprocedural states; R13.10 Dysphagia, unspecified; Z79.51 Long term (current) use of inhaled steroids; Z79.4 Long term (current) use of insulin; Z79.01 Long term (current) use of anticoagulants; G43.909 Migraine, unspecified, not intractable, without status migrainosus; E66.01 Morbid (severe) obesity due to excess calories; Z79.899 Other long term (current) drug therapy; Z83.3 Family history of diabetes mellitus; S40.211A Abrasion of right shoulder, initial encounter; S20.319A Abrasion of unspecified front wall of thorax, initial encounter; X58.XXXA Exposure to other specified factors, initial encounter; Y92.9 Unspecified place or not applicable; Z74.09 Other reduced mobility
CPT/HCPCS: 36415; 71045-TC; 75574; 80048-TC; 80061-TC; 80076-TC; 82962-TC; 83735-TC; 83880; 84100-TC; 84443-TC; 84484-TC; 85025-TC; 87081-TC; 93307-TC; 97116-TC; 97530-TC; G0378; J1650; J1815; J2270; J3490; J7050; Q9967; U0003

== ENCOUNTER 2021-08-04 18:00 | Inpatient (IN) | payer MEDICARE, OTHER ==
[~2021-08-04] VITALS: Ht 162.6 cm; Wt 165.6 kg
[~2021-08-04 18:00] MED LIST changes: -ACET-73 PO; -ACET1OOV6 NEB; +ACET325T53 PO; -ALBU2.5V13 NEB; -AMIO200T7 PO; +APIX5TAB PO; +ASPI-1169 PO; +ATOR40TA PO; +BACL10TA PO; +BUME1TAB9 PO; +CARV12.5 PO; -CLOT15CR35 TP; -DILT180C66 PO; +DIVA-78 PO; +DULA1.5P SQ; -DULO30CA2 PO; -ENOX40DI SQ; +EREN70AU2 SQ; -FOLI1TAB16 PO; -GABA-534 PO; +HYDR4TAB4 PO; +INSU100V10 SQ; +INSU100V42 SQ; -INSU100V7 SQ; -IPRA0.2S9 NEB; -LACT1CAP72 PO; -LINE600T12 PO; +LISI2.5T2 PO; -MAG355OR18 PO; -MECL-159 PO; -METF-440 PO; +MULT-188 PO; +POLY17PO4 PO; -POTA10TA15 PO; -PRED20TA PO; -PREG100C PO; -PROP60CA38 PO; -PROT946L PO; -RIVA10TA PO; -SUMA100T16 PO; -TAMS-12 PO; -TOPI100T38 PO; +ZOLP5TAB2 PO
--- NOTE | 2021-08-04 18:14 | NUR ---
TO ER 13, C/O UNCONTROLLED TREMORS X 5 DAYS.
--- NOTE | 2021-08-04 18:15 | NUR ---
JEN PALMER AT BEDSIDE
--- NOTE | 2021-08-04 19:29 | NUR ---
REPORT OBTAINED FROM VU FERRARI FOR RHIANNA
--- NOTE | 2021-08-04 19:35 | NUR ---
covid test collected and sent to lab
--- NOTE | 2021-08-04 19:41 | NUR ---
PT IN BED, STATED HE FEELS SOB 94O2 SAT NOTED ON ROOM AIR. 2L O2 PROVIDED. MADE AWARE.
--- NOTE | 2021-08-04 19:53 | NUR ---
PT NOW O2 SAT 98 ON 2L O2.
[2021-08-04 19:54] LABS: CALCIUM, SERUM 8.4 mg/dL (8.5-10.1); CARBON DIOXIDE 29 mmol/L (21-32); CHLORIDE 103 mmol/L (98-107); CREATININE 0.8 mg/dL (0.6-1.3); GLUCOSE 213 mg/dL (74-106); POTASSIUM 4.1 mmol/L (3.5-5.1); SODIUM SERUM 137 mmol/L (136-145); UREA NITROGEN, BLOOD 13 mg/dL (7-18)
--- NOTE | 2021-08-04 19:54 | NUR ---
IV LINE ESTABLISHED RAC 18G
[2021-08-04 19:57] LABS: BASOPHILS % (AUTO) 0.5 % (0.0-2.0); EOSINOPHILS % (AUTO) 3.5 % (0.0-6.0); HEMATOCRIT 43 % (39-51); HEMOGLOBIN 14.4 g/dL (13.5-17.5); LYMPHOCYTES # (AUTO) 1.2 K/uL (0.8-4.8); LYMPHOCYTES % (AUTO) 17.6 % (20.0-44.0); MEAN CORPUSCULAR HGB CONC 33 g/dl (31.0-36.0); MEAN CORPUSCULAR VOLUME 91 fL (80-96); MONOCYTES # (AUTO) 0.6 K/uL (0.1-1.30); MONOCYTES % (AUTO) 8.4 % (2.0-12.0); NEUTROPHILS # (AUTO) 4.8 K/uL (1.8-8.9); PLATELET COUNT (AUTO) 89 K/uL (150-450); RED BLOOD CELL COUNT(AUTO) 4.74 MIL/uL (4.5-6.0); WHITE BLOOD COUNT (AUTO) 6.9 K/uL (4.3-11.0)
--- NOTE | 2021-08-04 20:25 | NUR ---
MRSA SWAB COLLECTED AND SENT TO LAB. PATIENT'S BELONGINGS LIST DONE.
[2021-08-04 20:30] LABS: BAND % (MANUAL) 1 % (0.0-5.0); EOSINOPHILS % (MANUAL) 3 % (0-4); LYMPHOCYTES % (MANUAL) 14 % (16-48); MONOCYTES % (MANUAL) 7 % (0-11.0); NEUTROPHILS % (MANUAL) 75 (42-76)
--- NOTE | 2021-08-04 21:41 | NUR ---
REPORT GIVEN TO NESTOR
--- NOTE | 2021-08-04 21:50 | NUR ---
RN NOTE PT BROUGHT FROM ER. PT IS ON 2L OF O2 VIA NC SHOWING NO S/SX OF RESP DISTRESS/SOB. BREATHING EVEN AND UNLABORED. PT IS A/OX3. ON HEAT TREATER HELPER SHOWING NSR. IV ACCESS NOTED ON RIGHT AC #18. LINE FLUSHED, PATENT, AND INTACT WITH NO SIGNS OF INFILTRATION. ALL SAFETY MEASURES IMPLEMENTED. WILL CONTINUE TO MONITOR AND ASSESS FOR ANY CHANGES DURING SHIFT.
[2021-08-04 22:00] VITALS: BP 100/55
[2021-08-04] MEDS ORDERED: DEXTROSE 50%-WATER 50 ML DISP.SYRIN IV PRN (23:00)
[2021-08-04] MEDS ORDERED: ACETAMINOPHEN 325 MG TABLET PO PRN (23:00)
[2021-08-04] MEDS ORDERED: ONDANSETRON HCL/PF 4 MG/2 ML VIAL IVP PRN (23:00)
[2021-08-04] MEDS ORDERED: MORPHINE SULFATE INJ 2 MG/ML DISP.SYRIN IV PRN (23:00)
[2021-08-04] MEDS ORDERED: *INSULIN REGULAR(HUMULIN R)HUM 100 UNIT/ML VIAL SQ PRN (23:00)
[2021-08-04] MEDS ORDERED: hydrALAZINE HCL IV 20 MG VIAL IV PRN (23:00)
[2021-08-04] MEDS: MORPHINE SULFATE INJ 2 MG/ML DISP.SYRIN IV PRN (23:15)
[2021-08-05] VITALS: BP 96/51
[2021-08-05 04:00] VITALS: BP 109/59
[2021-08-05 06:02] LABS: BASOPHILS % (AUTO) 0.5 % (0.0-2.0); EOSINOPHILS % (AUTO) 3.9 % (0.0-6.0); HEMATOCRIT 42 % (39-51); HEMOGLOBIN 13.9 g/dL (13.5-17.5); LYMPHOCYTES % (AUTO) 17.7 % (20.0-44.0); MEAN CORPUSCULAR HGB CONC 33 g/dl (31.0-36.0); MEAN CORPUSCULAR VOLUME 91 fL (80-96); MONOCYTES # (AUTO) 0.5 K/uL (0.1-1.30); MONOCYTES % (AUTO) 9.2 % (2.0-12.0); NEUTROPHILS % (AUTO) 68.7 % (43.0-81.0); PLATELET COUNT (AUTO) 76 K/uL (150-450); WHITE BLOOD COUNT (AUTO) 5.8 K/uL (4.3-11.0)
--- NOTE | 2021-08-05 06:47 | NUR ---
RN NOTE NO CHANGES IN PT CONDITION DURING SHIFT. PT IS ON 2L OF O2 VIA NC SHOWING NO S/SX OF RESP DISTRESS/SOB. BREATHING EVEN AND UNLABORED. IV ACCESS NOTED ON RIGHT AC #18. LINE FLUSHED, PATENT, AND INTACT WITH NO SIGNS OF INFILTRATION. ALL DUE MEDS GIVEN ORDERED. PT KEPT CLEAN AND COMFORTABLE. ALL SAFETY MEASURES IMPLEMENTED. WILL ENDORSE TO MORNING SHIFT RN FOR RHIANNA.
[2021-08-05 07:25] LABS: BAND % (MANUAL) 4 % (0.0-5.0); EOSINOPHILS % (MANUAL) 1 % (0-4); LYMPHOCYTES % (MANUAL) 15 % (16-48); MONOCYTES % (MANUAL) 6 % (0-11.0); NEUTROPHILS % (MANUAL) 74 (42-76)
--- NOTE | 2021-08-05 07:36 | NUR ---
RN OPENING NOTE PATIENT RECEIVED IN BED, AWAKE, A&OX3. PATIENT ON 2L O2 NC WITH NO SIGNS OF LABORED BREATHING AT THIS TIME. RIGHT AC 18G IN PLACE. BED LOCKED AND IN LOWEST POSITION, CALL LIGHT WITHIN REACH, 3 SIDE RAILS UP.
[2021-08-05 07:40] LABS: ALBUMIN 2.5 g/dL (3.4-5.0); BILIRUBIN,TOTAL 0.9 mg/dL (0.2-1.0); CREATININE 0.9 mg/dL (0.6-1.3); MAGNESIUM 1.8 mg/dL (1.8-2.4); POTASSIUM 4.2 mmol/L (3.5-5.1); TOTAL PROTEIN, SERUM 6.7 g/dL (6.4-8.2)
[2021-08-05] MEDS: BLOOD SUGAR DIAGNOSTIC 1 EACH STRIP IN SCH ×4 (07:45→22:14)
[2021-08-05 08:00] VITALS: BP 109/58
[2021-08-05 08:04] LABS: CALCIUM, SERUM 8.8 mg/dL (8.5-10.1)
[2021-08-05] MEDS ORDERED: BUMETANIDE (1 MG) 1 MG TABLET PO SCH (09:00)
[2021-08-05] MEDS ORDERED: DOCUSATE SODIUM LIQ 100 MG/10 ML UDC PO SCH (09:00)
[2021-08-05] MEDS: APIXABAN 5 MG TABLET PO SCH ×2 (09:00→16:59)
[2021-08-05] MEDS ORDERED: HEPARIN SODIUM, PORCINE 5000 UNITS/1 ML VIAL SQ SCH (09:00)
--- NOTE | 2021-08-05 09:07 | NUR ---
WOUND CARE CONSULT: PT PRESENTS WITH PATCHY LESION/SKIN CONDITION TO RT SIDE OF HEAD AND RT ARM WELL RASH TO ABDOMINAL/GROIN FOLDS, PRESENT ON ADMISSION. DEFER TO PMD FOR HEAD/ARM SKIN CONDITION. RECOMMENDATIONS MADE FOR RASH AND SKIN PROTECTION. DISCUSSED WITH NURSING STAFF. PT IS INCONTINENT OF STOOL. IN AGREEMENT WITH PLAN OF CARE. Addendum: 08/05/21 at 0914 by NIKITA BOSWELL WNDNU ADDITIONAL: LEFT LOWER LEG SWOLLEN AND TENDER. RECOMMEND DPM CONSULT. CALLED TO DR HAMPAPUR. DOMINGO IN AGREEMENT WITH PLAN OF CARE.
[2021-08-05] MEDS: DIVALPROEX SODIUM 250 MG TABLET.DR PO SCH ×2 (09:30→16:32)
[2021-08-05] MEDS: CARVEDILOL 3.125 MG TABLET PO SCH ×2 (09:30→16:32)
[2021-08-05] MEDS: ASPIRIN 81 MG TAB.CHEW PO SCH (09:30)
[2021-08-05] MEDS: MORPHINE SULFATE INJ 2 MG/ML DISP.SYRIN IV PRN ×3 (09:30→21:29)
[2021-08-05] MEDS: LISINOPRIL (5MG) 5 MG TABLET PO SCH (09:30)
[2021-08-05] MEDS: DOCUSATE SODIUM 100 MG CAPSULE PO SCH ×2 (09:30→16:32)
[2021-08-05] MEDS: BACLOFEN (10 MG) 10 MG TABLET PO SCH ×2 (09:30→16:31)
[2021-08-05] MEDS: POLYETHYLENE GLYCOL 3350 17 GM POWD.PACK PO SCH (09:31)
[2021-08-05] MEDS: INSULIN REGULAR, HUMAN 100 UNIT/ML 3 ML VIAL SQ PRN ×4 (09:33→22:14)
[2021-08-05] MEDS: FUROSEMIDE 40 MG TABLET PO SCH (10:15)
[2021-08-05] MEDS: INSULIN GLARGINE, 100 UNIT/ML CARTRIDGE SQ SCH ×2 (10:16→17:00)
--- NOTE | 2021-08-05 10:21 | NUR ---
RN NOTE AWAITING FOR DR. BAH TO CONFIRM IF HE WANTS ELIQUIS TO BE GIVEN DUE TO PLT OF 76.
[2021-08-05 12:00] VITALS: BP 110/42
[2021-08-05] MEDS ORDERED: OXYC-128 PO (13:12)
[2021-08-05] MEDS ORDERED: SUMA50TA17 PO (13:12)
[2021-08-05] MEDS ORDERED: PREG50CA PO (13:12)
[2021-08-05] MEDS ORDERED: MORP15TA PO (13:12)
[2021-08-05] MEDS ORDERED: INSU100I26 SQ (13:12)
[2021-08-05 16:00] VITALS: BP 110/52
[2021-08-05] MEDS: VITAMINS A AND D 56.7 GM TUBE TP SCH (16:31)
[2021-08-05] MEDS: CLOTRIMAZOLE 1% 15 GM TUBE TP SCH (16:31)
--- NOTE | 2021-08-05 16:32 | NUR ---
RN NOTE PATIENT EXPERIENCED LOOSE STOOL X5 SINCE 0700. STOOL SOFTENERS HELD. DR. BAH NOTIFIED.
--- NOTE | 2021-08-05 18:43 | NUR ---
RN CLOSING NOTE PATIENT REMAINS IN BED, A&OX3. PATIENT ON 2L O2 NC WITH NO SIGNS OF LABORED BREATHING AT THIS TIME. RIGHT AC 18G IN PLACE. ALL NEEDS ATTENDED DURING SHIFT. NO SIGNS OF ACUTE DISTRESS NOTED. BED LOCKED AND IN LOWEST POSITION, CALL LIGHT WITHIN REACH, 3 SIDE RAILS UP. WILL ENDORSE TO ACADEMIC DEAN NURSE.
--- NOTE | 2021-08-05 19:15 | NUR ---
RN NOTES RECEIVED CARE OF PATIENT FROM AM NURSE. PATIENT IN BED, AWAKE, A/O X3, ABLE TO MAKE NEEDS KNOWN. PATIENT EXPRESSES PAIN 10/10 GENERALIZED. WILL ADMINISTER MORPHINE PRN FOR PAIN MANAGEMENT. PATIENT ON O2 THERAPY VIA NC AT 2L/MIN, O2 SAT 96%, NO SOB NOTED. PATIENT WITH TELE MONITOR SHOWING SR WITH BBB AND HR OF 75, NO DISTRESS NOTED ON PATIENT. NO SIGNIFICANT FINDINGS UPON INITIAL NURSING ASSESSMENTS. RIGHT AC 18G IN PLACE. SAFETY MEASURES IN PLACE, BED LOCKED AND IN LOWEST POSITION, CALL LIGHT WITHIN REACH, 3 SIDE RAILS UP. WILL CONTINUE TO MONITOR.
[2021-08-05 20:00] VITALS: BP 105/51
[2021-08-05] MEDS ORDERED: ATORVASTATIN 40 MG TABLET PO SCH (22:00)
[2021-08-05] MEDS ORDERED: ZOLPIDEM TARTRATE 5 MG TABLET PO SCH (22:00)
[2021-08-06] VITALS: BP 98/53
[2021-08-06] MEDS: MORPHINE SULFATE INJ 2 MG/ML DISP.SYRIN IV PRN ×4 (01:42→15:43)
[2021-08-06 04:00] VITALS: BP 97/49
--- NOTE | 2021-08-06 06:20 | NUR ---
RN CLOSING NOTES WILL ENDORSE CARE OF PATIENT TO AM NURSE. NO SIGNIFICANT FINDINGS UPON ALL NURSING ASSESSMENTS. ALL PATIENT NEEDS MET THOUGHT SHIFT. PAIN MANAGED. SAFETY MEASURES KEPT IN PLACE. WILL ENDORSE TO AM NURSE FOR RHIANNA.
[2021-08-06 08:00] VITALS: BP 100/62
[2021-08-06] MEDS: DOCUSATE SODIUM 100 MG CAPSULE PO SCH ×2 (08:51→16:06)
[2021-08-06] MEDS: POLYETHYLENE GLYCOL 3350 17 GM POWD.PACK PO SCH (08:51)
[2021-08-06] MEDS: ASPIRIN 81 MG TAB.CHEW PO SCH (08:51)
[2021-08-06] MEDS: BACLOFEN (10 MG) 10 MG TABLET PO SCH ×2 (08:51→16:07)
[2021-08-06] MEDS: DIVALPROEX SODIUM 250 MG TABLET.DR PO SCH ×2 (08:51→16:06)
[2021-08-06] MEDS: CARVEDILOL 3.125 MG TABLET PO SCH ×2 (08:52→16:07)
[2021-08-06] MEDS: FUROSEMIDE 40 MG TABLET PO SCH (08:52)
[2021-08-06] MEDS: LISINOPRIL (5MG) 5 MG TABLET PO SCH (08:53)
[2021-08-06] MEDS: APIXABAN 5 MG TABLET PO SCH ×2 (08:56→16:06)
[2021-08-06] MEDS: CLOTRIMAZOLE 1% 15 GM TUBE TP SCH ×2 (08:57→16:07)
[2021-08-06] MEDS: VITAMINS A AND D 56.7 GM TUBE TP SCH ×2 (08:58→16:07)
[2021-08-06] MEDS: BLOOD SUGAR DIAGNOSTIC 1 EACH STRIP IN SCH ×2 (08:58→11:04)
[2021-08-06] MEDS: INSULIN GLARGINE, 100 UNIT/ML CARTRIDGE SQ SCH ×2 (09:03→16:14)
[2021-08-06] MEDS: INSULIN REGULAR, HUMAN 100 UNIT/ML 3 ML VIAL SQ PRN ×3 (09:05→16:16)
[2021-08-06 12:00] VITALS: BP 116/63
[2021-08-06 16:01] VITALS: BP 121/67
[2021-08-06 16:07] VITALS: BP 121/67
[2021-08-06] MEDS ORDERED: CLOTRIMAZOLE/BETAMETASONE DIPROPIONATE 15 GM TUBE TP SCH (17:00)
--- NOTE | 2021-08-06 19:44 | NUR ---
RN CLOSING NOTES WILL ENDORSE CARE OF PATIENT TO PM NURSE. NO SIGNIFICANT FINDINGS UPON ALL NURSING ASSESSMENTS. ALL PATIENT NEEDS MET THOUGHT SHIFT. PAIN MANAGED. PT READY FOR DISCHARGE. ALL SAFETY MEASURES KEPT IN PLACE. WILL ENDORSE TO PM NURSE FOR RHIANNA.
--- NOTE | 2021-08-06 20:08 | NUR ---
RN NOTE PT DISCHARGED TO [facility] VIA BLS PROTOCOL, ACCOMPANIED BY 2 EMP. SENT ALL THE DISCHARGE FORMS/EXIT CARE AND PATIENT'S FORMS. IV LINE REMOVED. PT IN STABLE CONDITION. ALL VS WNL.
== END 2021-08-06 20:19 | disposition home or self-care (01) | DRG 302 ==
LOC: ER 18:10 → TELE1 20:51
PROVIDERS: ADMIT Internal Medicine; ATTEND Internal Medicine
DX: I25.119 Atherosclerotic heart disease of native coronary artery with unspecified angina pectoris (principal); E43 Unspecified severe protein-calorie malnutrition; I50.32 Chronic diastolic (congestive) heart failure; Z68.44 Body mass index [BMI] 60.0-69.9, adult; I25.10 Atherosclerotic heart disease of native coronary artery without angina pectoris; I11.0 Hypertensive heart disease with heart failure; Z20.822 Contact with and (suspected) exposure to COVID-19; E11.42 Type 2 diabetes mellitus with diabetic polyneuropathy; E11.65 Type 2 diabetes mellitus with hyperglycemia; E66.01 Morbid (severe) obesity due to excess calories; J44.9 Chronic obstructive pulmonary disease, unspecified; M06.9 Rheumatoid arthritis, unspecified; R13.10 Dysphagia, unspecified; Z98.890 Other specified postprocedural states; Z79.4 Long term (current) use of insulin; Z79.01 Long term (current) use of anticoagulants; Z79.82 Long term (current) use of aspirin; Z79.899 Other long term (current) drug therapy; E88.09 Other disorders of plasma-protein metabolism, not elsewhere classified; D69.6 Thrombocytopenia, unspecified; I48.0 Paroxysmal atrial fibrillation; G40.909 Epilepsy, unspecified, not intractable, without status epilepticus; I87.8 Other specified disorders of veins; I87.2 Venous insufficiency (chronic) (peripheral); L30.4 Erythema intertrigo; L85.3 Xerosis cutis; Z83.3 Family history of diabetes mellitus; R25.1 Tremor, unspecified
CPT/HCPCS: 36415; 71045-TC; 80048-TC; 80053-TC; 80164-TC; 82962-TC; 83735-TC; 83880; 84100-TC; 84484-TC; 85025-TC; 87081-TC; 93307-TC; 93970-TC; C9803; G0378; J1815; J2270

== ENCOUNTER 2022-04-20 18:43 | Inpatient (IN) | payer MEDICARE, OTHER ==
[~2022-04-20] VITALS: Ht 162.6 cm; Wt 173.3 kg
[~2022-04-20 18:43] MED LIST changes: -*INS NOVA SQ; -ACET325T53 PO; -BUME1TAB9 PO; -EREN70AU2 SQ; -HYDR-3976 PO; -HYDR4TAB4 PO; +INSU100I26 SQ; -INSU100V10 SQ; -MAGN400O6 PO; +MORP15TA PO; -MULT-188 PO; +OXYC-128 PO; -POLY17PO4 PO; +PREG50CA PO; +SUMA50TA17 PO
--- NOTE | 2022-04-20 18:45 | NUR ---
Received pt 61 male transfer from [facility]ing leaving by perla c/o chest pain for 2 days
--- NOTE | 2022-04-20 18:50 | NUR ---
INserted ango cathter g 20 on lt arm blood drow and sent to lab
--- NOTE | 2022-04-20 18:55 | NUR ---
C XRY DONE AT BED
[2022-04-20 19:27] LABS: CALCIUM, SERUM 8.9 mg/dL (8.5-10.1); CARBON DIOXIDE 28 mmol/L (21-32); CHLORIDE 103 mmol/L (98-107); GLUCOSE 160 mg/dL (74-106); POTASSIUM 3.9 mmol/L (3.5-5.1); SODIUM SERUM 139 mmol/L (136-145); UREA NITROGEN, BLOOD 15 mg/dL (7-18)
--- NOTE | 2022-04-20 19:39 | NUR ---
HAND OFF TO ALBAN FERRARI
[2022-04-20] MEDS ORDERED: IBUPROFEN 600 MG TABLET ONE (19:42)
--- NOTE | 2022-04-20 19:42 | NUR ---
w/ c/o FUNMILAYO. made aware w/ a new order for "morphine 4 mg IV." noted
[2022-04-20] MEDS ORDERED: MORPHINE SULFATE INJ 4 MG/ML DISP.SYRIN ONE (19:44)
[2022-04-20] MEDS ORDERED: MORPHINE SULFATE INJ 2 MG/ML DISP.SYRIN IV ONE (20:00)
[2022-04-20 20:14] LABS: BASOPHILS # (AUTO) 0.1 K/uL (0.0-0.2); BASOPHILS % (AUTO) 0.7 % (0.0-2.0); EOSINOPHILS % (AUTO) 2.5 % (0.0-6.0); HEMATOCRIT 39 % (39-51); HEMOGLOBIN 12.8 g/dL (13.5-17.5); LYMPHOCYTES # (AUTO) 1.1 K/uL (0.8-4.8); MEAN CORPUSCULAR HGB CONC 33 g/dl (31.0-36.0); MEAN CORPUSCULAR VOLUME 91 fL (80-96); MONOCYTES # (AUTO) 0.6 K/uL (0.1-1.30); MONOCYTES % (AUTO) 7.5 % (2.0-12.0); NEUTROPHILS # (AUTO) 5.6 K/uL (1.8-8.9); NEUTROPHILS % (AUTO) 74.3 % (43.0-81.0); PLATELET COUNT (AUTO) 100 K/uL (150-450); RED BLOOD CELL COUNT(AUTO) 4.31 MIL/uL (4.5-6.0); WHITE BLOOD COUNT (AUTO) 7.6 K/uL (4.3-11.0)
--- NOTE | 2022-04-20 21:05 | NUR ---
ATTEMPTED TO GIVE REPORT, NO ASSIGNED NURSE YET
--- NOTE | 2022-04-20 21:34 | NUR ---
REPORT GIVEN TO SAMUEL FERRARI FOR RHIANNA
--- NOTE | 2022-04-20 21:55 | NUR ---
TRANSFERRED TO BED 304 IN STABLE CONDITION
[2022-04-20] MEDS ORDERED: ONDANSETRON HCL/PF 4 MG/2 ML VIAL IVP PRN (22:30)
[2022-04-20] MEDS ORDERED: DEXTROSE 50%-WATER 50 ML DISP.SYRIN IV PRN (22:30)
[2022-04-20] MEDS: DOCUSATE SODIUM 100 MG CAPSULE PO SCH (22:49)
[2022-04-20] MEDS: DIVALPROEX SODIUM 500 MG TABLET.DR PO SCH (22:50)
[2022-04-20] MEDS: CARVEDILOL 12.5 MG TABLET PO SCH (22:50)
[2022-04-20] MEDS: NATEGLINIDE 60 MG TABLET PO SCH (22:50)
[2022-04-20] MEDS: ATORVASTATIN 40 MG TABLET PO SCH (22:51)
[2022-04-20] MEDS: PREGABALIN 25 MG CAPSULE PO SCH (22:51)
[2022-04-20] MEDS: APIXABAN 5 MG TABLET PO SCH (22:51)
--- NOTE | 2022-04-20 23:00 | NUR ---
BANK TELLER MACHINE MECHANICBUCKLE COVERER NOTE RECEIVED REPORT FROM VEGA ZIMMERMAN AND PATIENT WAS BROUGHT TO THE UNIT AT AROUND 2210 VIA STRETCHER ACCOMPANIED BY 2 ER STAFFS. PATIENT WAS ADMITTED D/T C/O NON RADIATING CHEST PAIN FOR 1.5 DAYS. DIRECTED TO ROOM 304-2. PATIENT IS ALERT AND ORIENTED X4. ABLE TO COMMUNICATE NEEDS WITH THE STAFFS. AFEBRILE AND NOT IN ANY FORM OF ACUTE DISTRESS. PER PATIENT, HE STILL HAS MILD CHEST PAIN BUT TOLERABLE. HE WAS GIVEN MORPHINE 4MG IV IN ER AND WAS EFFECTIVE. EXPLAINED ADMISSION PROCESS W/C INCLUDES SKIN ASSESSMENT AND PATIENT AGREES ON THE PLAN. PATIENT WAS NOTED WITH DISCOLORATION ON RLQ OF ABDOMEN AND SCABS ON R LOWER LEG. ALSO NOTED WITH OLD SCAR ON LEFT BREAST AND CRUST ON RIGHT FOREARM. PICTURE WAS TAKEN AND PLACED IN THE CHART. LIST OF BELONGINGS AND VALUABLES ALSO DOCUMENTED BY ASSIGNED CRIMINAL JUSTICE SOCIAL WORKER. WITH IV ACCESS ON L FOREARM 20G-SL. MEDICATED ORDERED. SAFETY MEASURES IN PLACE. KEPT BED IN LOCKED AND IN LOW POSITION. SIDE RAILS UP X2. ADVISED TO USE THE CALL LIGHT WHEN IN NEED OF ASSISTANCE.
[2022-04-21 00:18] VITALS: BP 127/66
[2022-04-21] MEDS: ZOLPIDEM TARTRATE 10 MG TABLET PO PRN (00:29)
[2022-04-21 04:00] VITALS: BP 120/87
[2022-04-21] MEDS: NATEGLINIDE 60 MG TABLET PO SCH ×3 (05:13→21:21)
[2022-04-21 06:07] LABS: BASOPHILS % (AUTO) 0.3 % (0.0-2.0); EOSINOPHILS % (AUTO) 2.5 % (0.0-6.0); HEMATOCRIT 39 % (39-51); HEMOGLOBIN 12.6 g/dL (13.5-17.5); LYMPHOCYTES % (AUTO) 16.1 % (20.0-44.0); MEAN CORPUSCULAR HGB CONC 32 g/dl (31.0-36.0); MEAN CORPUSCULAR VOLUME 92 fL (80-96); MONOCYTES # (AUTO) 0.4 K/uL (0.1-1.30); MONOCYTES % (AUTO) 6.7 % (2.0-12.0); NEUTROPHILS # (AUTO) 4.6 K/uL (1.8-8.9); NEUTROPHILS % (AUTO) 74.4 % (43.0-81.0); PLATELET COUNT (AUTO) 84 K/uL (150-450); RED BLOOD CELL COUNT(AUTO) 4.22 MIL/uL (4.5-6.0); WHITE BLOOD COUNT (AUTO) 6.2 K/uL (4.3-11.0)
[2022-04-21 06:11] LABS: CALCIUM, SERUM 8.9 mg/dL (8.5-10.1); CREATININE 0.9 mg/dL (0.6-1.3); PHOSPHORUS 4.8 mg/dL (2.5-4.9); POTASSIUM 4.3 mmol/L (3.5-5.1)
[2022-04-21] MEDS ORDERED: MORPHINE SULFATE INJ 2 MG/ML DISP.SYRIN IV PRN (06:30)
--- NOTE | 2022-04-21 06:30 | NUR ---
HOSPITAL TRAY SERVICE WORKER CLOSING NOTE PATIENT IN BED, WITH HOB ELEVATED, ASLEEP BUT EASY TO AROUSE AND RESPONSIVE. ALERT AND ORIENTED X4. ABLE TO COMMUNICATE NEEDS WITH THE STAFFS. AFEBRILE AND NOT IN ANY FORM OF ACUTE DISTRESS. BREATHING EVEN AND NON LABORED. ON TELE MONITORING WITH CURRENT READING OF SR 74 WITH BBB AND OCC PVC. WITH IV ACCESS ON L FOREARM 20G-SL. MONITORED FOR ANY S/SX. OF HYPO/HYPERGLYCEMIA. MEDICATED ORDERED. SAFETY MEASURES IN PLACE. KEPT BED IN LOCKED AND IN LOW POSITION. SIDE RAILS UP X2. ADVISED TO USE THE CALL LIGHT WHEN IN NEED OF ASSISTANCE. ALL NURSING NEEDS ATTENDED. ENDORSED TO INCOMING SHIFT FOR CONTINUITY OF CARE.
[2022-04-21] MEDS: BLOOD SUGAR DIAGNOSTIC 1 EACH STRIP IN SCH ×4 (06:39→22:09)
[2022-04-21] MEDS: INSULIN REGULAR, HUMAN 100 UNIT/ML 3 ML VIAL SQ PRN ×3 (06:47→21:28)
[2022-04-21] MEDS ORDERED: METF-442 PO (07:40)
[2022-04-21] MEDS ORDERED: SENN-261 PO (07:40)
[2022-04-21 08:00] VITALS: BP 127/70
[2022-04-21] MEDS: FUROSEMIDE 40 MG TABLET PO SCH (08:06)
[2022-04-21] MEDS: ASPIRIN 81 MG TAB.CHEW PO SCH (08:07)
[2022-04-21] MEDS: LISINOPRIL (5MG) 5 MG TABLET PO SCH (08:07)
[2022-04-21] MEDS: PREGABALIN 25 MG CAPSULE PO SCH ×3 (08:08→16:49)
[2022-04-21] MEDS: DIVALPROEX SODIUM 500 MG TABLET.DR PO SCH ×2 (08:08→16:49)
[2022-04-21] MEDS: DOCUSATE SODIUM 100 MG CAPSULE PO SCH ×4 (08:08→16:50)
[2022-04-21] MEDS: CARVEDILOL 12.5 MG TABLET PO SCH ×2 (08:09→16:49)
[2022-04-21] MEDS: BACLOFEN (10 MG) 10 MG TABLET PO SCH ×2 (08:09→16:49)
[2022-04-21] MEDS: APIXABAN 5 MG TABLET PO SCH ×2 (08:11→21:22)
[2022-04-21] MEDS: INSULIN GLARGINE, 100 UNIT/ML CARTRIDGE SQ SCH ×2 (08:18→17:00)
[2022-04-21 10:21] LABS: BAND % (MANUAL) 2 % (0.0-5.0); NEUTROPHILS % (MANUAL) 80 (42-76)
[2022-04-21 10:22] LABS: EOSINOPHILS % (MANUAL) 3 % (0-4); LYMPHOCYTES % (MANUAL) 8 % (16-48); MONOCYTES % (MANUAL) 7 % (0-11.0)
[2022-04-21] MEDS: ACETAMINOPHEN 325 MG TABLET PO PRN (11:22)
[2022-04-21 12:00] VITALS: BP 123/63
[2022-04-21] MEDS: MORPHINE SULFATE INJ 2 MG/ML DISP.SYRIN IV PRN ×3 (14:24→22:32)
--- NOTE | 2022-04-21 18:03 | NUR ---
END OF SHIFT SUMMARY PATIENT IS A/O X4. MORBID OBESE. ABLE TO MAKE NEEDS KNOWN. INDEPENDENT WITH REPOSITIONING. FALL PRECAUTIONS MAINTAINED AT ALL TIMES. ON TELE, SR WITH BBB AND OCCASIONAL PVCs. IV ACCESS ON L FA #20g, INTACT AND PATENT. BLOOD GLUCOSE MONITORED. INSULIN GIVEN PER MD-SLIDING SCALE. SAFETY MEASURES MAINTAINED. BED IN LOWEST POSITION, BRAKES LOCKED. SIDE RAILS UP X2. CALL LIGHT WITHIN REACH WILL ENDORSE CONTINUITY OF CARE TO ONCOMING SHIFT.
[2022-04-21 20:00] VITALS: BP 104/54
--- NOTE | 2022-04-21 20:03 | NUR ---
SATELLITE TV TECHNICIAN INSTALLER OPENING NOTES RECEIVED PATIENT ON BED, A/O X 4, CONSCIOUS AND COHERENT, ON MODERATE HIGH BACK REST POSITION.WITH IV ACCESS ON LEFT FA #20G, PATENT AND INTACT. ATTACHED WITH TELE MONITORING DEVICE. NO COMPLAIN OF PAIN AND DISCOMFORT AT THIS TIME. BREATH EVENLY. CONTINENT AND USES URINAL. KEPT SIDE RAILS UP X 2 ALL THE TIME. KEPT BED ON LOWER LOCKED POSITION.SAFETY PRECAUTIONS MAINTAINED, KEPT CALL LIGHT WITHIN AT REACH. WILL CONTINUE TO MONITOR.
[2022-04-21] MEDS: ATORVASTATIN 40 MG TABLET PO SCH (21:23)
--- NOTE | 2022-04-22 | NUR ---
YARN INSPECTOR NOTES PATIENT COMPLAIN CHEST PAIN, HOOKED TO OXYGEN AT 2 LPM VIA NASAL CANNULA. WILL CONTINUE TO MONITOR
--- NOTE | 2022-04-22 | NUR ---
ATHLETICS DIRECTOR NOTES PATIENT REFUSED BIPAP MACHINE FOR TONIGHT. WILL CONTINUE TO MONITOR
[2022-04-22 00:22] VITALS: BP 103/55
[2022-04-22] MEDS: ZOLPIDEM TARTRATE 10 MG TABLET PO PRN ×2 (00:25→21:04)
--- NOTE | 2022-04-22 01:49 | NUR ---
RT pt refused noc bipap. kellen tellez, aware
[2022-04-22] MEDS: MORPHINE SULFATE INJ 2 MG/ML DISP.SYRIN IV PRN ×5 (04:22→23:51)
[2022-04-22] MEDS: NATEGLINIDE 60 MG TABLET PO SCH ×3 (05:07→21:04)
[2022-04-22] MEDS: INSULIN REGULAR, HUMAN 100 UNIT/ML 3 ML VIAL SQ PRN ×3 (05:29→21:16)
[2022-04-22] MEDS: BLOOD SUGAR DIAGNOSTIC 1 EACH STRIP IN SCH ×4 (06:24→21:04)
--- NOTE | 2022-04-22 06:34 | NUR ---
ASSISTED LIVING HOME DIRECTOR CLOSING NOTES PATIENT IS IN BED, ASLEEP ON MODERATE HIGH BACK REST POSITION. A/O X 4 , ABLE TO VERBALIZED NEEDS. HOOKED TO OXYGEN VIA NASAL CANNULA AT 2 LPM TOLERATING WELL. WITH IV ACCESS AT LFA #20G PATENT AND INTACT.ATTACHED TO TELE MONITORING DEVICE. NO COMPLAIN OF CHEST PAIN OR ANY DISCOMFORT AT THIS TIME. ALL DUE MEDICATIONS GIVEN PRESCRIBED ALL NEEDS ATTENDED. EVENING AND MORNING CARE RENDERED. KEPT SIDE RAILS UP X 2 ALL THE TIME, KEPT BED ON LOWER LOCKED POSITION. SAFETY MEASURES MAINTAINED. KEPT CALL LIGHT WITHIN AT REACH. WILL ENDORSED TO AM SHIFT FOR RHIANNA.
[2022-04-22 07:00] VITALS: BP 143/70
--- NOTE | 2022-04-22 07:45 | NUR ---
GREEN MARKETER OPENING NOTES PATIENT AWAKE IN BED, A/O X 4 , ABLE TO VERBALIZED NEEDS. HOOKED TO OXYGEN VIA NASAL CANNULA AT 2 LPM TOLERATING WELL. WITH IV ACCESS AT LFA #20G PATENT AND INTACT.ATTACHED TO TELE MONITORING WHICH READS SR HR 77 WITH EPISODE OF BBB. NO COMPLAIN OF CHEST PAIN OR ANY DISCOMFORT AT THIS TIME. KEPT SIDE RAILS UP X 2 ALL THE TIME, KEPT BED ON LOWER LOCKED POSITION. SAFETY MEASURES MAINTAINED. KEPT CALL LIGHT WITHIN AT REACH. WILL CONTINUE TO MONITOR.
[2022-04-22] MEDS: DOCUSATE SODIUM 100 MG CAPSULE PO SCH ×4 (09:00→17:34)
[2022-04-22] MEDS: ASPIRIN 81 MG TAB.CHEW PO SCH (09:52)
[2022-04-22] MEDS: LISINOPRIL (5MG) 5 MG TABLET PO SCH (09:53)
[2022-04-22] MEDS: PREGABALIN 25 MG CAPSULE PO SCH ×3 (09:54→17:34)
[2022-04-22] MEDS: BACLOFEN (10 MG) 10 MG TABLET PO SCH ×2 (09:54→17:34)
[2022-04-22] MEDS: CARVEDILOL 12.5 MG TABLET PO SCH ×2 (09:55→17:35)
[2022-04-22] MEDS: DIVALPROEX SODIUM 500 MG TABLET.DR PO SCH ×2 (09:55→17:35)
[2022-04-22] MEDS: FUROSEMIDE 40 MG TABLET PO SCH (09:56)
[2022-04-22] MEDS: APIXABAN 5 MG TABLET PO SCH ×2 (09:57→21:04)
[2022-04-22] MEDS: INSULIN GLARGINE, 100 UNIT/ML CARTRIDGE SQ SCH ×2 (10:14→17:38)
[2022-04-22 12:00] VITALS: BP 125/101
[2022-04-22 16:00] VITALS: BP 121/64
[2022-04-22] MEDS: ACETAMINOPHEN 325 MG TABLET PO PRN (17:47)
--- NOTE | 2022-04-22 19:34 | NUR ---
GARMENT FOLDER CLOSING NOTES PATIENT AWAKE IN BED A/O X 4, ABLE TO VERBALIZED NEEDS. HOOKED TO OXYGEN VIA NASAL CANNULA AT 2 LPM TOLERATING WELL. WITH IV ACCESS AT LFA #20G PATENT AND INTACT.ATTACHED TO TELE MONITORING WHICH READS SR HR 77 WITH EPISODE OF BBB. NO COMPLAIN OF CHEST PAIN OR ANY DISCOMFORT AT THIS TIME. WILL BE DISCHARGE TOMORROW AT 10AM PER CM. KEPT SIDE RAILS UP X 2 ALL THE TIME, KEPT BED ON LOWER LOCKED POSITION. SAFETY MEASURES MAINTAINED. KEPT CALL LIGHT WITHIN AT REACH. WILL ENDORSE TO NIGHT NURSE.
--- NOTE | 2022-04-22 19:38 | NUR ---
GRINDER LAP OPENING NOTES RECEIVED PATIENT IN BED, AWAKE AND COHERENT. HOOKED TO OXYGEN VIA NASAL CANNULA AT 2 LPM TOLERATING WELL. BREATH EVENLY NO EPISODE OF SOB AT THIS TIME. WITH IV ACCESS AT LFA #20G PATENT AND INTACT NO INFILTRATION NOTED. ATTACHED TO TELE MONITOR. NO COMPLAIN OF PAIN OR ANY DISCOMFORT AT THIS TIME. KEPT CALL LIGHT WITHIN REACH. KEPT BED ON LOWER LOCKED POSITION . KEPT SIDE RAILS UP X2 ALL TIME.INSTRUCTED TO CALL FOR AMBULATION. SAFETY PRECAUTIONS MAINTAINED. WILL CONTINUE TO MONITOR
[2022-04-22 20:00] VITALS: BP 114/61
[2022-04-22 20:15] VITALS: BP 114/61
[2022-04-22] MEDS: ATORVASTATIN 40 MG TABLET PO SCH (21:04)
--- NOTE | 2022-04-22 23:11 | NUR ---
RT pt refused to wear bipap. mask does not fit well. kellen tellez, aware
[2022-04-23] VITALS: BP 110/53
--- NOTE | 2022-04-23 | NUR ---
CONCEPT ARTIST NOTES PATIENT REFUSES BIPAP. WILL CONTINUE TO MONITOR.
[2022-04-23 00:05] VITALS: BP 110/53
[2022-04-23 04:00] VITALS: BP 142/73
[2022-04-23] MEDS: NATEGLINIDE 60 MG TABLET PO SCH (04:34)
[2022-04-23] MEDS: MORPHINE SULFATE INJ 2 MG/ML DISP.SYRIN IV PRN ×2 (04:34→09:52)
[2022-04-23 04:37] VITALS: BP 142/73
[2022-04-23] MEDS: INSULIN REGULAR, HUMAN 100 UNIT/ML 3 ML VIAL SQ PRN (05:35)
--- NOTE | 2022-04-23 06:24 | NUR ---
PRIMARY CLINICIAN CLOSING NOTES PATIENT REMAIN IN BED, ASLEEP. AWAKE AND COHERENT. ABLE TO VERBALIZED NEEDS. ON MODERATE HIGH BACK POSITION. HOOKED TO OXYGEN VIA NASAL CANNULA AT 2LPM BREATH EVENLY. NO S/S OF SHORTNESS OF BREATH. HOOKED TO TELE MONITORING DEVICE. NO CHEST PAIN OR ANY DISCOMFORT NOTED AT THIS TIME. ALL DUE MEDICATIONS GIVEN, ALL NEEDS ATTENDED. KEPT BED ON LOWER LOCKED POSITION. KEPT SIDE RAILS UP X 2 ALL THE TIME. KEPT CALL LIGHT WITHIN AT REACH. SAFETY PRECAUTIONS MAINTAINED. WILL ENDORSED TO AM SHIFT FOR RHIANNA
[2022-04-23] MEDS: BLOOD SUGAR DIAGNOSTIC 1 EACH STRIP IN SCH (06:45)
[2022-04-23 07:00] VITALS: BP 116/58
--- NOTE | 2022-04-23 07:38 | NUR ---
ASSEMBLY INSTRUCTIONS WRITER OPENING NOTES RECEIVED PATIENT IN BED, AWAKE , ALER AND ORIENTED X4 . HOOKED TO OXYGEN VIA NASAL CANNULA AT 2 LPM TOLERATING WELL. NO SOB OR DISTRESS NOTED . WITH IV ACCESS AT LFA #20G PATENT AND INTACT NO INFILTRATION NOTED. ON TELE MONITOR WITH SR WITH BBB 68 WITH PVC 'S NO COMPLAIN OF PAIN OR ANY DISCOMFORT AT THIS TIME. KEPT CALL LIGHT WITHIN REACH. KEPT BED ON LOWER LOCKED POSITION . KEPT SIDE RAILS UP X2 ALL TIME . SAFETY PRECAUTIONS MAINTAINED. WILL CONTINUE TO MONITOR
[2022-04-23] MEDS ORDERED: CARV12.52 PO (08:55)
[2022-04-23] MEDS ORDERED: APIX5TAB PO (08:59)
[2022-04-23] MEDS ORDERED: MUPIROCIN OINT 2% 22 GM TUBE NS SCH (09:00)
[2022-04-23] MEDS: DOCUSATE SODIUM 100 MG CAPSULE PO SCH (09:01)
[2022-04-23] MEDS: ASPIRIN 81 MG TAB.CHEW PO SCH (09:01)
[2022-04-23] MEDS: DIVALPROEX SODIUM 500 MG TABLET.DR PO SCH (09:02)
[2022-04-23] MEDS: PREGABALIN 25 MG CAPSULE PO SCH (09:02)
[2022-04-23] MEDS: FUROSEMIDE 40 MG TABLET PO SCH (09:02)
[2022-04-23] MEDS: BACLOFEN (10 MG) 10 MG TABLET PO SCH (09:02)
[2022-04-23 09:03] VITALS: BP 116/58
[2022-04-23] MEDS: CARVEDILOL 12.5 MG TABLET PO SCH (09:03)
[2022-04-23] MEDS: LISINOPRIL (5MG) 5 MG TABLET PO SCH (09:03)
[2022-04-23] MEDS: APIXABAN 5 MG TABLET PO SCH (09:07)
[2022-04-23] MEDS: INSULIN GLARGINE, 100 UNIT/ML CARTRIDGE SQ SCH (09:46)
--- NOTE | 2022-04-23 11:30 | NUR ---
WIRE COILER MACHINE OPERATOR NOTES PATIENT IS WITH ORDER FOR DISCHARGE TO ASSISTED LIVING FACILITY , PATIENT IS ALERT AND ORIENTED AND ABLE TO MAKE NEEDS KNOWN, ALL DUE MEDS GIVEN ORDERED , DISCHARGE INSTRUCTIONS PROVIDED REGARDING MEDICATIONS , DIET , FOLLOW UP WITH PCPC , CONTINUE WITH BACTROBAN ORDERED DUE TO MRSA OF THE NARES X 7 DAYS AND PATIENT UNDERSTOOD INSTRUCTIONS PROVIDED , ALL BELONGINGS WERE TAKEN BY PATIENT AND FORM WAS SIGNED. C/O OF PAIN AND DISCOMFORT AND MORPHINE ORDERED GIVEN WITH HELP , DISCHARGE FORM WAS SIGNED AND PATIENT WAS CLUTCH OPERATOR BY AMBULANCE AROUND 1030 AND LEFT 1100 IN A STABLE CONDITION , ALL NEEDS ATTENDED
== END 2022-04-23 13:07 | DRG 302 ==
LOC: ER 18:47 → TELE 21:06
PROVIDERS: ADMIT Nurse Practitioner Acute Care; ATTEND Internal Medicine
DX: I25.10 Atherosclerotic heart disease of native coronary artery without angina pectoris (principal); E43 Unspecified severe protein-calorie malnutrition; I50.33 Acute on chronic diastolic (congestive) heart failure; J96.20 Acute and chronic respiratory failure, unspecified whether with hypoxia or hypercapnia; D68.59 Other primary thrombophilia; Z68.44 Body mass index [BMI] 60.0-69.9, adult; D69.6 Thrombocytopenia, unspecified; Z20.822 Contact with and (suspected) exposure to COVID-19; E11.40 Type 2 diabetes mellitus with diabetic neuropathy, unspecified; I48.91 Unspecified atrial fibrillation; M06.9 Rheumatoid arthritis, unspecified; I87.8 Other specified disorders of veins; E66.01 Morbid (severe) obesity due to excess calories; R13.10 Dysphagia, unspecified; E78.5 Hyperlipidemia, unspecified; Z98.890 Other specified postprocedural states; Z79.4 Long term (current) use of insulin; Z79.01 Long term (current) use of anticoagulants; Z79.82 Long term (current) use of aspirin; Z79.899 Other long term (current) drug therapy; Z99.3 Dependence on wheelchair; Z83.3 Family history of diabetes mellitus; I11.0 Hypertensive heart disease with heart failure; G25.0 Essential tremor; E88.09 Other disorders of plasma-protein metabolism, not elsewhere classified; G47.33 Obstructive sleep apnea (adult) (pediatric); J44.9 Chronic obstructive pulmonary disease, unspecified
CPT/HCPCS: 36415; 71045-TC; 80048-TC; 80061-TC; 82962-TC; 83735-TC; 83880; 84100-TC; 84484-TC; 85025-TC; 87081-TC; 94799-TC; A7526; C9803; G0378; J1815; J2270

== ENCOUNTER 2022-12-28 13:45 | Inpatient (IN) | payer MEDICARE, OTHER ==
[~2022-12-28] VITALS: Ht 162.6 cm; Wt 188.2 kg
[~2022-12-28 13:45] MED LIST changes: -ASPI-1169 PO; -CARV12.5 PO; +CARV12.52 PO; +METF-442 PO; -OXYC-128 PO; +SENN-261 PO
[2022-12-28 14:29] LABS: BASOPHILS % (AUTO) 0.8 % (0.0-2.0); EOSINOPHILS # (AUTO) 0.3 K/uL (0.0-0.7); EOSINOPHILS % (AUTO) 6.4 % (0.0-6.0); HEMATOCRIT 36 % (39-51); HEMOGLOBIN 11.5 g/dL (13.5-17.5); LYMPHOCYTES # (AUTO) 0.9 K/uL (0.8-4.8); LYMPHOCYTES % (AUTO) 19.2 % (20.0-44.0); MEAN CORPUSCULAR HEMOGLOBIN 30 PG (26.0-33.0); MEAN CORPUSCULAR HGB CONC 32 g/dl (31.0-36.0); MEAN CORPUSCULAR VOLUME 94 fL (80-96); MONOCYTES # (AUTO) 0.4 K/uL (0.1-1.30); MONOCYTES % (AUTO) 8.9 % (2.0-12.0); NEUTROPHILS # (AUTO) 3.1 K/uL (1.8-8.9); NEUTROPHILS % (AUTO) 64.7 % (43.0-81.0); PLATELET COUNT (AUTO) 100 K/uL (150-450); RED BLOOD CELL COUNT(AUTO) 3.78 MIL/uL (4.5-6.0); RED CELL DISTRIBUTION WIDTH 17.4 % (11.5-15.0); WHITE BLOOD COUNT (AUTO) 4.8 K/uL (4.3-11.0)
[2022-12-28 14:51] LABS: CALCIUM, SERUM 8.6 mg/dL (8.5-10.1); CARBON DIOXIDE 30 mmol/L (21-32); CHLORIDE 102 mmol/L (98-107); CREATININE 1.1 mg/dL (0.6-1.3); GLUCOSE 129 mg/dL (74-106); SODIUM SERUM 137 mmol/L (136-145); UREA NITROGEN, BLOOD 17 mg/dL (7-18)
[2022-12-28 15:00] LABS: ALANINE AMINOTRANSFERASE 28 U/L (12-78); ALBUMIN 2.4 g/dL (3.4-5.0); ALKALINE PHOSPHATASE 102 U/L (46-116); ASPARTATE AMINOTRANSFERASE 34 U/L (15-37); BILIRUBIN,DIRECT 0.2 mg/dL (0.0-0.2); BILIRUBIN,TOTAL 0.6 mg/dL (0.2-1.0); NT-PRO BNP 519 pg/mL (0-125); TOTAL PROTEIN, SERUM 7.3 g/dL (6.4-8.2)
[2022-12-28] MEDS ORDERED: FUROSEMIDE 40 MG/4 ML VIAL IV ONE (15:30)
[2022-12-28] MEDS ORDERED: ASPIRIN 81 MG TAB.CHEW PO ONE (15:30)
[2022-12-28] MEDS ORDERED: TRIA15CR2 TP (15:59)
[2022-12-28] MEDS ORDERED: INSU100I4 SQ (15:59)
[2022-12-28] MEDS ORDERED: METO25TA6 PO (15:59)
[2022-12-28] MEDS ORDERED: NALO4SPR NS (15:59)
[2022-12-28] MEDS ORDERED: ZOLP10TA2 PO (15:59)
[2022-12-28] MEDS ORDERED: APIX5TAB PO (15:59)
[2022-12-28] MEDS ORDERED: LINA290C PO (15:59)
[2022-12-28] MEDS ORDERED: RIME75TA PO (15:59)
[2022-12-28] MEDS ORDERED: DICL100G26 TP (15:59)
[2022-12-28 16:00] VITALS: BP 147/65; TEMP 98.1; O2SAT 91
[2022-12-28] MEDS ORDERED: hydrALAZINE HCL IV 20 MG VIAL IV PRN (16:30)
[2022-12-28] MEDS ORDERED: DEXTROSE 50%-WATER 50 ML DISP.SYRIN IV PRN (16:30)
[2022-12-28] MEDS ORDERED: ACETAMINOPHEN 325 MG TABLET PO PRN (16:30)
[2022-12-28] MEDS ORDERED: ALBUTEROL FS 2.5 MG/0.5 ML VIAL.NEB NEB PRN (16:30)
[2022-12-28] MEDS ORDERED: ONDANSETRON HCL/PF 4 MG/2 ML VIAL IVP PRN (16:30)
[2022-12-28] MEDS: METOPROLOL TARTRATE 25 MG TABLET PO SCH (17:00)
[2022-12-28 17:05] VITALS: BP 92/62; TEMP 98.2; O2SAT 96
[2022-12-28] MEDS: MORPHINE SULFATE INJ 2 MG/ML DISP.SYRIN IV PRN ×2 (17:35→23:42)
[2022-12-28] MEDS ORDERED: IPRATROPIUM/ALBUTEROL INHALER IH SCH (18:00)
[2022-12-28] MEDS: BLOOD SUGAR DIAGNOSTIC 1 EACH STRIP IN SCH ×2 (18:08→22:32)
[2022-12-28] MEDS: INSULIN REGULAR, HUMAN 100 UNIT/ML 3 ML VIAL SQ PRN ×2 (18:08→22:31)
[2022-12-28] MEDS ORDERED: CLINDAMYCIN PHOSPHATE IV 600 MG/4 ML VIAL IV ONE (18:30)
[2022-12-28 20:00] VITALS: BP_SYST 105; BP_SYST 94; BP_DIAS 55; BP_DIAS 62; TEMP 98.2; O2SAT 93
[2022-12-28] MEDS: FUROSEMIDE 40 MG/4 ML VIAL IV SCH (20:00)
[2022-12-28] MEDS ORDERED: HEPARIN SODIUM, PORCINE 5000 UNITS/1 ML VIAL SQ SCH (21:00)
[2022-12-28] MEDS: DOXYCYCLINE 100 MG in IV D5W 100 ML IV SCH (21:03)
[2022-12-28] MEDS: MORPHINE SULFATE IR 15 MG TABLET PO SCH (21:22)
[2022-12-28] MEDS: ATORVASTATIN 40 MG TABLET PO SCH (21:22)
[2022-12-28] MEDS: ALBUTEROL FS 2.5 MG/3 ML VIAL.NEB NEB SCH (21:58)
[2022-12-28] MEDS: IPRATROPIUM NEB FS 0.5 MG/2.5 ML AMPUL.NEB NEB SCH (21:58)
[2022-12-28 21:59] VITALS: O2SAT 96
[2022-12-28 22:14] VITALS: O2SAT 99
[2022-12-29] VITALS (14 sets, daily range): BP systolic 99–126; BP diastolic 50–82; TEMP 97.5–98.6; O2SAT 91–99
[2022-12-29] MEDS ORDERED: ZOLPIDEM TARTRATE 10 MG TABLET PO ONE (00:30)
[2022-12-29] MEDS: ALBUTEROL FS 2.5 MG/3 ML VIAL.NEB NEB SCH ×4 (01:55→20:00)
[2022-12-29] MEDS: IPRATROPIUM NEB FS 0.5 MG/2.5 ML AMPUL.NEB NEB SCH ×4 (01:55→20:00)
[2022-12-29] MEDS: MORPHINE SULFATE IR 15 MG TABLET PO SCH ×3 (05:21→21:22)
[2022-12-29 05:34] LABS: BASOPHILS % (AUTO) 0.9 % (0.0-2.0); EOSINOPHILS # (AUTO) 0.3 K/uL (0.0-0.7); EOSINOPHILS % (AUTO) 5.3 % (0.0-6.0); HEMATOCRIT 38 % (39-51); LYMPHOCYTES # (AUTO) 0.9 K/uL (0.8-4.8); LYMPHOCYTES % (AUTO) 19.2 % (20.0-44.0); MEAN CORPUSCULAR HEMOGLOBIN 30 PG (26.0-33.0); MEAN CORPUSCULAR HGB CONC 32 g/dl (31.0-36.0); MEAN CORPUSCULAR VOLUME 94 fL (80-96); MONOCYTES # (AUTO) 0.5 K/uL (0.1-1.30); MONOCYTES % (AUTO) 9.4 % (2.0-12.0); NEUTROPHILS # (AUTO) 3.2 K/uL (1.8-8.9); NEUTROPHILS % (AUTO) 65.2 % (43.0-81.0); PLATELET COUNT (AUTO) 103 K/uL (150-450); RED BLOOD CELL COUNT(AUTO) 4.02 MIL/uL (4.5-6.0); RED CELL DISTRIBUTION WIDTH 17.1 % (11.5-15.0); WHITE BLOOD COUNT (AUTO) 4.9 K/uL (4.3-11.0)
[2022-12-29 05:49] LABS: ALBUMIN 2.5 g/dL (3.4-5.0); BILIRUBIN,TOTAL 0.7 mg/dL (0.2-1.0); CALCIUM, SERUM 9.1 mg/dL (8.5-10.1); MAGNESIUM 1.8 mg/dL (1.8-2.4); PHOSPHORUS 4.9 mg/dL (2.5-4.9); POTASSIUM 4.8 mmol/L (3.5-5.1); TOTAL PROTEIN, SERUM 7.6 g/dL (6.4-8.2)
[2022-12-29] MEDS ORDERED: Magnesium 1GM/D5W 100ML PREMIX 100 ML IV ONE (06:30)
[2022-12-29] MEDS: BLOOD SUGAR DIAGNOSTIC 1 EACH STRIP IN SCH ×4 (07:30→22:29)
[2022-12-29] MEDS: METOPROLOL TARTRATE 25 MG TABLET PO SCH ×2 (08:43→18:00)
[2022-12-29] MEDS: LISINOPRIL (5MG) 5 MG TABLET PO SCH (08:43)
[2022-12-29] MEDS: PREGABALIN 100 MG CAPSULE PO SCH ×3 (08:43→17:59)
[2022-12-29] MEDS: FUROSEMIDE 40 MG/4 ML VIAL IV SCH ×2 (08:44→21:18)
[2022-12-29] MEDS: APIXABAN 5 MG TABLET PO SCH (08:44)
[2022-12-29] MEDS: DOXYCYCLINE 100 MG in IV D5W 100 ML IV SCH ×2 (08:45→21:31)
[2022-12-29] MEDS ORDERED: AMIODARONE 450 MG in IV D5W 250 ML IV PRN ×2 (09:00→11:30)
[2022-12-29] MEDS ORDERED: AMIODARONE 150 MG in IV D5W 100 ML IV ONE (09:00)
[2022-12-29] MEDS: AMIODARONE 450 MG in IV D5W 241 ML IV PRN ×2 (11:19→20:41)
[2022-12-29] MEDS: INSULIN REGULAR, HUMAN 100 UNIT/ML 3 ML VIAL SQ PRN ×3 (12:20→22:28)
[2022-12-29] MEDS: MORPHINE SULFATE INJ 2 MG/ML DISP.SYRIN IV PRN (17:59)
[2022-12-29] MEDS: ATORVASTATIN 40 MG TABLET PO SCH (21:18)
[2022-12-29] MEDS: MUPIROCIN OINT 2% 22 GM TUBE NS SCH (21:24)
[2022-12-30] VITALS (14 sets, daily range): BP systolic 102–117; BP diastolic 63–74; TEMP 97.5–99.1; O2SAT 89–100
[2022-12-30] MEDS: ALBUTEROL FS 2.5 MG/3 ML VIAL.NEB NEB SCH ×4 (01:37→20:27)
[2022-12-30] MEDS: IPRATROPIUM NEB FS 0.5 MG/2.5 ML AMPUL.NEB NEB SCH ×4 (01:37→20:27)
[2022-12-30] MEDS: MORPHINE SULFATE IR 15 MG TABLET PO SCH ×3 (05:24→21:55)
[2022-12-30 07:49] LABS: ALBUMIN 2.5 g/dL (3.4-5.0); BILIRUBIN,TOTAL 1.1 mg/dL (0.2-1.0); CALCIUM, SERUM 9.3 mg/dL (8.5-10.1); CREATININE 1.1 mg/dL (0.6-1.3); POTASSIUM 4.7 mmol/L (3.5-5.1); TOTAL PROTEIN, SERUM 7.5 g/dL (6.4-8.2)
[2022-12-30] MEDS: INSULIN REGULAR, HUMAN 100 UNIT/ML 3 ML VIAL SQ PRN ×4 (08:58→21:59)
[2022-12-30] MEDS: BLOOD SUGAR DIAGNOSTIC 1 EACH STRIP IN SCH ×4 (08:58→21:55)
[2022-12-30] MEDS: FUROSEMIDE 40 MG/4 ML VIAL IV SCH ×2 (08:59→20:34)
[2022-12-30] MEDS: PREGABALIN 100 MG CAPSULE PO SCH ×3 (08:59→18:43)
[2022-12-30] MEDS: LISINOPRIL (5MG) 5 MG TABLET PO SCH (09:00)
[2022-12-30] MEDS: METOPROLOL TARTRATE 25 MG TABLET PO SCH ×2 (09:01→18:43)
[2022-12-30] MEDS: APIXABAN 5 MG TABLET PO SCH (09:05)
[2022-12-30] MEDS: MUPIROCIN OINT 2% 22 GM TUBE NS SCH ×2 (09:06→20:34)
[2022-12-30] MEDS: DOXYCYCLINE 100 MG in IV D5W 100 ML IV SCH (09:07)
[2022-12-30] MEDS: AMIODARONE HCL 200 MG TABLET PO SCH ×3 (10:41→18:45)
[2022-12-30] MEDS ORDERED: Z GUARD REMEDY 4 OZ OINT TP PRN (11:00)
[2022-12-30] MEDS: Z GUARD REMEDY 4 OZ OINT TP SCH (12:59)
[2022-12-30] MEDS: MORPHINE SULFATE INJ 2 MG/ML DISP.SYRIN IV PRN (16:32)
[2022-12-30] MEDS ORDERED: CLOTRIMAZOLE 1% 15 GM TUBE TP SCH (17:00)
[2022-12-30] MEDS: CLOTRIMAZOLE 1% 15 GM TUBE TP SCH (17:30)
[2022-12-30] MEDS ORDERED: FUROSEMIDE 40 MG/4 ML VIAL IV ONE (19:30)
[2022-12-30] MEDS: DOXYCYCLINE HYCLATE (100 MG) 100 MG TABLET PO SCH (20:34)
[2022-12-30] MEDS: ATORVASTATIN 40 MG TABLET PO SCH (21:55)
[2022-12-31] VITALS (8 sets, daily range): BP systolic 96–114; BP diastolic 60–79; TEMP 98.1–98.8; O2SAT 95–100
[2022-12-31] MEDS: ALBUTEROL FS 2.5 MG/3 ML VIAL.NEB NEB SCH ×2 (02:18→07:51)
[2022-12-31] MEDS: IPRATROPIUM NEB FS 0.5 MG/2.5 ML AMPUL.NEB NEB SCH ×2 (02:18→07:51)
[2022-12-31] MEDS: MORPHINE SULFATE IR 15 MG TABLET PO SCH ×2 (04:56→12:44)
[2022-12-31 07:35] LABS: ALBUMIN 2.5 g/dL (3.4-5.0); BILIRUBIN,TOTAL 1.2 mg/dL (0.2-1.0); CALCIUM, SERUM 9.1 mg/dL (8.5-10.1); CREATININE 1.2 mg/dL (0.6-1.3); POTASSIUM 4.5 mmol/L (3.5-5.1); TOTAL PROTEIN, SERUM 7.5 g/dL (6.4-8.2)
[2022-12-31] MEDS: BLOOD SUGAR DIAGNOSTIC 1 EACH STRIP IN SCH ×2 (07:38→12:31)
[2022-12-31] MEDS: INSULIN REGULAR, HUMAN 100 UNIT/ML 3 ML VIAL SQ PRN ×2 (07:44→12:37)
[2022-12-31] MEDS: DOXYCYCLINE HYCLATE (100 MG) 100 MG TABLET PO SCH (08:56)
[2022-12-31] MEDS: PREGABALIN 100 MG CAPSULE PO SCH ×2 (08:56→12:42)
[2022-12-31] MEDS: MUPIROCIN OINT 2% 22 GM TUBE NS SCH (08:56)
[2022-12-31] MEDS: METOPROLOL TARTRATE 25 MG TABLET PO SCH (08:57)
[2022-12-31] MEDS: LISINOPRIL (5MG) 5 MG TABLET PO SCH (08:57)
[2022-12-31] MEDS: AMIODARONE HCL 200 MG TABLET PO SCH ×2 (09:00→13:01)
[2022-12-31] MEDS ORDERED: DOXY100T2 PO (09:03)
[2022-12-31] MEDS ORDERED: EMPA25TA PO (09:03)
[2022-12-31] MEDS ORDERED: AMIO200T7 PO (09:03)
[2022-12-31] MEDS ORDERED: APIX5TAB PO (09:03)
[2022-12-31] MEDS: CLOTRIMAZOLE 1% 15 GM TUBE TP SCH (09:10)
[2022-12-31] MEDS: APIXABAN 5 MG TABLET PO SCH (09:10)
[2022-12-31] MEDS: Z GUARD REMEDY 4 OZ OINT TP SCH (09:10)
== END 2022-12-31 13:33 | DRG 291 ==
LOC: ER 13:49 → TELE 17:16 → TELE-TD 12-29 09:55 → TELE1 12-30 09:54 → MEDSG1 12-31 10:51
PROVIDERS: ADMIT Internal Medicine; ATTEND Internal Medicine
PROC: 05HF33Z Insertion of Infusion Device into Left Cephalic Vein, Percutaneous Approach (ICD-10-PCS; principal; 2022-12-29)
DX: I11.0 Hypertensive heart disease with heart failure (principal); I50.43 Acute on chronic combined systolic (congestive) and diastolic (congestive) heart failure; I87.333 Chronic venous hypertension (idiopathic) with ulcer and inflammation of bilateral lower extremity; L03.115 Cellulitis of right lower limb; L03.116 Cellulitis of left lower limb; L97.929 Non-pressure chronic ulcer of unspecified part of left lower leg with unspecified severity; L97.919 Non-pressure chronic ulcer of unspecified part of right lower leg with unspecified severity; E11.40 Type 2 diabetes mellitus with diabetic neuropathy, unspecified; M06.9 Rheumatoid arthritis, unspecified; E66.01 Morbid (severe) obesity due to excess calories; I48.91 Unspecified atrial fibrillation; Z98.890 Other specified postprocedural states; R13.10 Dysphagia, unspecified; Z79.899 Other long term (current) drug therapy; Z79.4 Long term (current) use of insulin; Z79.01 Long term (current) use of anticoagulants; Z79.84 Long term (current) use of oral hypoglycemic drugs; Z79.85 Long-term (current) use of injectable non-insulin antidiabetic drugs; J44.9 Chronic obstructive pulmonary disease, unspecified; Z83.3 Family history of diabetes mellitus; D64.9 Anemia, unspecified; L30.4 Erythema intertrigo; I87.2 Venous insufficiency (chronic) (peripheral); Z79.82 Long term (current) use of aspirin
CPT/HCPCS: 36410; 36415; 71045-TC; 80048-TC; 80053-TC; 80076-TC; 82962-TC; 83735-TC; 83880; 84100-TC; 84484-TC; 85025-TC; 87081-TC; 93307-TC; 94799-TC; A4223; G0378; J0282; J1815; J1940; J2270; J3475; J3490; J7040; J7060